=== PATIENT | male | born 1950 | race Caucasian/White ===

== ENCOUNTER 2019-09-12 10:20 | Outpatient (CLI) | payer MEDICARE, SELFPAY ==
--- NOTE | 2019-09-12 | XR_ITS ---
WS: [id number] LEFT RIBS, MULTIPLE VIEWS WITH PA CHEST HISTORY: COPD, pain. COMPARISON: None available. Lungs and mediastinum: Benign granuloma central RIGHT lung. Lungs are clear. No pulmonary contusion o r pneumothorax. Ribs: No acute rib fractures identified. There is very slight cortical thickening involving the LEFT ninth rib posteriorly which may be a healing fracture. XR/XR ribs LT mn 3V w CXR1V 40400 IMPRESSION: 1. No acute cardiopulmonary disease. 2. Possible healing rib fracture posterior LEFT ninth rib.
== END 2019-09-12 10:21 | disposition home or self-care (01) ==
LOC: RADOUTREAD 13:36
PROVIDERS: Family Provider Nurse Practitioner Family; PCP Nurse Practitioner Family; Visit Provider Nurse Practitioner Family
DX: J44.9 Chronic obstructive pulmonary disease, unspecified (principal); R07.81 Pleurodynia

== ENCOUNTER 2019-11-04 12:18 | Outpatient (CLI) | payer MEDICARE, SELFPAY ==
--- NOTE | 2019-11-04 | XR_ITS ---
WS: [id number] LEFT RIBS, MULTIPLE VIEWS WITH PA CHEST HISTORY: SHORTNESS OF BREATH COMPARISON: 09/12/2019 Lungs and mediastinum: Benign granuloma central RIGHT lung. New area of atelectasis at the LEFT lung base. There is a new small LEFT pleural effusion. No pneumothorax. Ribs: No rib fractures or bone destruction identified. XR/XR ribs LT mn 3V w CXR1V [id number] IMPRESSION: 1. New subsegmental LEFT basilar atelectasis with small effusion. Developing p neumonia not excluded. 2. No definite rib fractures are identified.
== END 2019-11-04 12:19 | disposition home or self-care (01) ==
LOC: RADOUTREAD 14:18
PROVIDERS: Family Provider Nurse Practitioner Family; PCP Nurse Practitioner Family; Visit Provider Nurse Practitioner Family
DX: Z01.89 Encounter for other specified special examinations (principal)

== ENCOUNTER 2019-11-04 13:13 | Observation (INO) | payer MEDICARE, SELFPAY ==
[2019-11-04] VITALS (9 sets, daily range): BP systolic 125–148; BP diastolic 72–97; PULSE 77–92; RESP 18–32; TEMP 36.6–37; O2SAT 87–96; BMI 29.6
--- NOTE | 2019-11-04 13:37 | XR_ITS ---
WS: [id number] XR chest 1V portable [id number] REASON FOR EXAM: SOB FINDINGS: Left pleural effusion is seen extends to the seventh interspace on the left. Comparisons we re made to September 12, 2019. A granuloma is again seen in the mid right chest. The hilum and apices normal. XR/XR chest 1V portable [id number] IMPRESSION: Left pleural effusion extends to the seventh interspace. Benign granuloma mid right chest.
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
--- NOTE | 2019-11-04 14:40 | CT_ITS ---
WS: [id number] CT scan of the chest with IV contrast, additional two-dimensional coronal and sagittal reconstruction was performed. 11/04/2019 Clinical Data: abnl cxr, Comparison: Portable chest, today, CTA chest, 11/09/2018. DLP: 878.[address] scans at [facility] use at least one of these dose optimization techniques: automat ed exposure control; mA and/or kV adjustment per patient size (includes targeted exams where dose is matched to clinical indication); or iterative reconstruction. Findings: There is a small left pleural effusion along with adjacent atelectasis. No nodules or masses are seen. The heart size is normal with no pericardial effusion. The pulmonary a rterial system and thoracic aorta demonstrate no abnormalities or dilatations. There is no axillary o r significant mediastinal adenopathy. No pneumonia or pneumothorax is seen. Pulmonary vascularity is not increased. The trachea bifurcates into the bronchi. The thyroid gland shows normal enhancement. The upper abdomen shows fatty infiltration the liver and clips in the gallbladder fossa from a cholec ystectomy, otherwise is not remarkable. Bony thorax shows minimal osteoarthritic changes of the thora cic vertebral bodies. CT/CT chest w con* [id number] Impression: 1. Small left pleural effusion. 2. Negative for other pulmonary abnormalities or cardiac abnormalities. 2.
[2019-11-04 14:42] LABS: Basophils # 0.2 10^3/uL (0.0-0.1); Basophils % 1.7 %; Eosinophils # 0.2 10^3/uL (0.0-0.8); Eosinophils % 1.7 %; Hematocrit 45.6 % (42.0-52.0); Hemoglobin 15.2 g/dL (11.7-16.6); Lymphocytes # 1.6 10^3/uL (0.8-4.8); Lymphocytes % 14.3 %; Mean Corpuscular HGB Conc 33.3 g/dL (30.0-36.0); Mean Corpuscular Hemoglobin 30.8 pg (28.0-34.0); Mean Corpuscular Volume 92.3 fL (80-94); Mean Platelet Volume 9.6 fL (7.4-10.4); Monocytes # 0.5 10^3/uL (0.2-0.9); Monocytes % 4.7 %; Neutrophils # 8.7 10^3/uL (1.8-7.7); Neutrophils % 77.1 %; Nucleated Red Blood Cells % 0 %; Platelet Count 308 10^3/cmm (130-400); Red Blood Count 4.94 10^6/uL (4.1-5.3); Red Cell Distribution Width 13.9 % (12.1-15.1); White Blood Count 11.3 10^3/uL (4.0-10.0)
[2019-11-04] MEDS: ondansetron 2 mg/ML SDV 2 mL 4 MG IVP (14:51)
[2019-11-04] MEDS: morphine 4 mg/mL SDV 1 mL IVP (14:51)
[2019-11-04] MEDS: ipratropium 0.5 mg/2.5 mL Neb 0.25 MG INHALATION (15:08)
[2019-11-04 15:14] LABS: Alanine Aminotransferase 28 U/L (0-41); Albumin Level 4.1 g/dL (3.5-5.2); Alkaline Phosphatase 129 IU/L (40-130); Aspartate Amino Transferase 27 U/L (0-40); Blood Urea Nitrogen 9 mg/dL (8-23); C Reactive Protein 26.9 mg/L (0.0-4.9); Calcium 9.9 mg/dL (8.5-10.5); Carbon Dioxide 25 mmol/L (22-29); Chloride 95 mmol/L (98-107); Globulin 3.4 g/dL (1.3-4.6); Glomerular Filtration Rate 84.2 mL/min (90-130); Glucose 374 mg/dL (65-115); NT Pro B Type Natriuretic Pept 50 pg/mL (0-125); Sodium 133 mmol/L (136-145); Total Bilirubin 0.6 mg/dL (0.15-1.2); Total Protein 7.5 g/dL (6.6-8.7)
[2019-11-04 15:25] LABS: Erythrocyte Sedimentation Rate 38 mm/hr (0-10)
[2019-11-04] MEDS: iohexol 300 mg/mL 100 mL Btl 95 ML IV (16:32)
--- NOTE | 2019-11-04 16:46 | ECG_ITS ---
Measurements Intervals [place] Rate: 75 P: 57 FL: 146 QRS: 3 QRSD: 105 T: 38 QT: 385 QTc: 432 SINUS RHYTHM Compared to ECG 11/10/2018 05:54:04 No significant changes Electronically Signed On 11-04-2019 19:56:19 POLICE CHIEF by Mag Alba M.D. [id number] f
[2019-11-04 17:59] LABS: D Dimer 7.85 ug/mIFEU (0-0.59)
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
[2019-11-04] MEDS: cyclobenzaprine 10 mg Tablet 5 MG PO (20:12)
[2019-11-04] MEDS: ipratropium-albuterol 3 mL Neb INHALATION (20:13)
[2019-11-04] MEDS: enoxaparin 40 mg/0.4 mL Syringe SUBCUT (20:14)
[2019-11-04] MEDS: lidocaine 5% Patch 1 PATCH TOPICAL (20:14)
--- NOTE | 2019-11-04 21:14 | CTR_ITS ---
PROCEDURE INFORMATION: Exam: CT Abdomen And Pelvis Without Contrast Exam date and time: 11/04/2019 10:23 PM Age: 68 years old Clinical indication: Abdominal pain; Prior surgery; Surgery type: Back, hernia, gb; Additional info: Left upper qudrant pain TECHNIQUE: Imaging protocol: Computed tomography of the abdomen and pelvis without contrast. Total DLP: 1581.51 mGy-cm Radiation optimization: All CT scans at this facility use at least one of these dose optimization techniques: automated exposure control; mA and/or kV adjustment per patient size (includes targeted exams where dose is matched to clinical indication); or iterative reconstruction. COMPARISON: US ROR abd aorta aneury scrn 03/14/2019 8:32 AM FINDINGS: Pleural space: Small left pleural effusion. No visible evidence of hemothorax or pneumothorax within the field of view provided. Liver: Diffuse fatty infiltration of the liver. Gallbladder and bile ducts: Status post cholecystectomy. No intra or extrahepatic biliary ectasia. Pancreas: Pancreas unremarkable. Spleen: Calcified splenic granulomas. Adrenals: Adrenal glands unremarkable. Kidneys and ureters: Kidneys unremarkable. No hydronephrosis or perinephric fluid. Stomach and bowel: Unremarkable. No obstruction. No mucosal thickening. Appendix: No evidence of appendicitis. Intraperitoneal space: Unremarkable. No free air. No significant fluid collection. Vasculature: IVC filter. Lymph nodes: Unremarkable. No enlarged lymph nodes. Bladder: Unremarkable as visualized. Reproductive: Unremarkable as visualized. Bones/joints: Minimally displaced lateral left 7th rib fracture. This is only partially imaged. Degenerative disease and degenerative disc disease of the visualized spine. Inter pedicle screw fixation at L4 and L5 with intervertebral disc prosthesis. Spondylosis deformans. Advanced degenerative disc disease with disc space height loss L1/L2. Soft tissues: Small right inguinal hernia containing fat only. CT/CT abdomen pelvis wo con 04502 IMPRESSION: 1. Minimally displaced lateral left 7th rib fracture. 2. Small left pleural effusion. 3. No visible evidence of hemothorax or pneumothorax within the field of view provided. 4. Small right inguinal hernia containing fat only. 5. Diffuse fatty infiltration of the liver. 6. Currently no visible evidence of acute abdominal or pelvic pathologic process. Radiation Dose CTDIVOL = (mGy): DLP = 1581.51 (mGy-cm)
--- NOTE | 2019-11-04 21:18 | ECG_ITS ---
Measurements Intervals [place] Rate: 80 P: 57 [place]: 154 QRS: -26 QRSD: 100 T: 41 QT: 375 QTc: 433 SINUS RHYTHM BORDERLINE LEFT AXIS DEVIATION [QRS AXIS < -20] Compared to ECG 11/04/2019 16:58:17 No significant changes Electronically Signed On 11-05-2019 11:35:34 TRANSITION ADVISOR by Huang Caicedo M.D. [id number]
[2019-11-04 22:01] LABS: Lipase 19 U/L (13-60)
[2019-11-04 22:17] LABS: Troponin(5th) Baseline 13 ng/mL (0-15)
[2019-11-05] VITALS (15 sets, daily range): BP systolic 106–159; BP diastolic 64–83; PULSE 56–89; RESP 18–22; TEMP 36.3–36.5; O2SAT 86–97
[2019-11-05 00:29] LABS: Troponin 5 2HR 13.25 ng/mL (0-15); Troponin 5 2HR Delta 0.25 ABS# (0-10)
[2019-11-05 03:56] LABS: Basophils # 0.1 10^3/uL (0.0-0.1); Basophils % 2.1 %; Eosinophils % 0.2 %; Hematocrit 44.3 % (42.0-52.0); Hemoglobin 14.4 g/dL (11.7-16.6); Lymphocytes # 1.1 10^3/uL (0.8-4.8); Lymphocytes % 18.5 %; Mean Corpuscular HGB Conc 32.5 g/dL (30.0-36.0); Mean Corpuscular Hemoglobin 30.6 pg (28.0-34.0); Mean Corpuscular Volume 94.3 fL (80-94); Mean Platelet Volume 10.9 fL (7.4-10.4); Monocytes # 0.1 10^3/uL (0.2-0.9); Monocytes % 2.1 %; Neutrophils # 4.4 10^3/uL (1.8-7.7); Neutrophils % 76.8 %; Nucleated Red Blood Cells % 0 %; Platelet Count 248 10^3/cmm (130-400); Red Cell Distribution Width 13.9 % (12.1-15.1); White Blood Count 5.8 10^3/uL (4.0-10.0)
[2019-11-05 04:09] LABS: Troponin 5 6HR 13.19 ng/mL (0-15); Troponin 5 6HR Delta 0.19 ng/L (0-12)
[2019-11-05 04:24] LABS: Alanine Aminotransferase 28 U/L (0-41); Albumin Level 3.5 g/dL (3.5-5.2); Alkaline Phosphatase 115 IU/L (40-130); Anion Gap 18.7 (5-19); Blood Urea Nitrogen 13 mg/dL (8-23); Calcium 9.8 mg/dL (8.5-10.5); Carbon Dioxide 20 mmol/L (22-29); Chloride 96 mmol/L (98-107); Globulin 3.9 g/dL (1.3-4.6); Glomerular Filtration Rate 74.5 mL/min (90-130); Potassium 5.7 mmol/L (3.5-5.1); Sodium 129 mmol/L (136-145); Total Bilirubin 0.5 mg/dL (0.15-1.2); Total Protein 7.4 g/dL (6.6-8.7)
[2019-11-05 04:28] LABS: Slide Review Slide Review Perform
[2019-11-05 04:29] LABS: Glucose 579 mg/dL (65-115)
[2019-11-05 04:30] LABS: Aspartate Amino Transferase 29 U/L (0-40)
[2019-11-05 04:42] LABS: Glucose Point of Care 478 mg/dL (70-110)
[2019-11-05 06:14] LABS: Glucose Point of Care 412 mg/dL (70-110)
[2019-11-05 06:47] LABS: Estmated Average Glucose 260; Hemoglobin A1C 10.7 % (4.0-6.0)
[2019-11-05] MEDS: ipratropium-albuterol 3 mL Neb INHALATION ×3 (07:32→14:48)
[2019-11-05] MEDS: budesonide 0.5 mg/2 mL Neb INHALATION (08:25)
[2019-11-05] MEDS: lisinopril 20 mg Tablet 40 MG PO (10:00)
[2019-11-05] MEDS: aspirin 81 mg EC Tablet PO (10:01)
[2019-11-05] MEDS: pantoprazole DR 40 mg Tablet PO (10:01)
[2019-11-05] MEDS: gemfibrozil 600 mg Tablet PO (10:01)
[2019-11-05 10:58] LABS: Glucose Point of Care 389 mg/dL (70-110)
[2019-11-05] MEDS: ibuprofen 200 mg Tablet 400 MG PO (12:12)
--- NOTE | 2019-11-05 12:38 | P.DS_ITS ---
Discharge Providers Date of Admission: 11/04/19 17:34 Date of Discharge: November 05, 2019 Attending Provider at Admission: Sandra Arellano MD Attending Provider at Discharge: Sandra Arellano MD Primary Care Provider: Gabriela Szymanski Diagnoses at Discharge Discharge Diagnosis (1) Left-sided chest pain: Status: Acute (2) COPD (chronic obstructive pulmonary disease): Status: Acute Qualifiers: COPD type: COPD with acute exacerbation Qualified Code(s): J44.1 - Chronic obstructive pulmonary disease with (acute) exacerbation (3) Rib fracture: Status: Acute (4) Diabetes mellitus: Status: Acute Reason for Visit Reason for Visit: Reason For Visit: left sided fliud in lungs Hospital Course Discharge Summary: Stew Gardner is a 68 year old male with past medical history of COPD, CAD, hypertension, dyslipidemia who presented with complaint of left-sided chest discomfort and new hypoxia with SPO2 in the high 80s, new oxygen requirement of 2 L/min via nasal cannula. Upon initial evaluation with chest x-ray and CTA of the chest, he was ruled out for PE. Though no rib fractures were initially identified on x-ray and CTA of the chest, a CT of the abdomen was performed to rule out referred pain from the left upper quadrant and this did indeed reveal a minimally displaced seventh rib fracture on the left side, which coincided with the area of chest wall tenderness for the patient. No visible evidence of hemothorax or pneumothorax was seen. no obviosu abdominal source of pain. Note was made of a small left pleural effusion, however the latter finding does not explain his degree of symptoms., Pain control was given with oxycodone, ibuprofen and lidocaine patch and patient is significantly relieved of his pain as of the morning of discharge. He is able to converse in full sentences. Home oxygen evaluation was also done. Incentive spirometry was encouraged. Other significant hospital findings included blood sugar levels in excess of 500 requiring insulin and HbA1c of 10.5. Upon review of prior A1c, he had an HbA1c of 7.5 last year. On asking him about his history of diabetes mellitus, the patient and his family at bedside adamantly refused having the diagnosis of diabetes mellitus. They state that he has abnormal blood sugar and abnormal HbA1c only during hospital admissions and they believe this is contributed by Lovenox. I attempted to explain to them that while today blood sugar may be affected by steroids and other medications, HbA1c is a pretty accurate assessment tool for diagnosing diabetes mellitus over a period of ~3months or so. An A1c of 10.5 is consistent with diabetes mellitus and patient will probably need insulin for control. However both patient and family continue to deny the diagnosis of diabetes, states this is an ongoing issue being addressed as an outpatient and declined any further treatment from [facility] for the diabetes. They state they would like to continue following with their primary care provider for the same. Patient should also have an evaluation for osteoporosis given recurrent rib fractures with minimal stress of coughing and osteoporosis noted in the vertebral bodies on CT of the chest. Will additionally need follow up of left pleural effusion. 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: no focal neuro deficits Discharge Data Data Completed and Pending: Completed Studies During Hospitalization Category Date Time Status CT abdomen pelvis wo con [id number] Rout ine Cat Scan 11/04/19 21:[address] chest w con* [id number] Urgent Cat Scan 11/04/19 14:40 Completed XR chest 1V branden ble [id number] Urgent Exams 11/04/19 13:37 Completed Pending at discharge Category Date Time Status Blood Culture Sta t Lab 11/04/19 14:40 Results Potassium Stat Lab 11/05/19 12:24 Ordered Labs from last 24 hours 11/05/19 11/05/19 11/05/19 10:55 06:09 04:38 WBC RBC Hgb Hct MCV MCH MCHC RDW Plt Count MPV Neut % (Auto) Lymph % (Auto) [place] % (Auto) Eos % (Auto) Baso % (Auto) Neut # (Auto) Lymph # (Auto) [place] # (Auto) Eos # (Auto) Baso # (Auto) Nucleated RBC % (a uto) Nucleated RBCs # ESR D-Dimer Sodium Potassium Chloride Carbon Dioxide Anion Gap BUN Creatinine GFR Calculation Glucose POC Glucose [phone] Estimat Average Gl ucose Hemoglobin A1c Calcium Total Bilirubin AST ALT Alkaline Phosphata se Troponin I 6 Hour Troponin I Hi Sens Del Troponin T Baselin e Troponin T 120 Min [place] Troponin T C-Reactive Protein NT-Pro-B Natriuret Pep Total Protein Albumin Globulin Lipase 11/05/19 11/05/19 11/05/19 03:30 03:30 03:30 WBC RBC Hgb Hct MCV MCH MCHC RDW Plt Count MPV Neut % (Auto) Lymph % (Auto) [place] % (Auto) Eos % (Auto) Baso % (Auto) Neut # (Auto) Lymph # (Auto) [place] # (Auto) Eos # (Auto) Baso # (Auto) Nucleated RBC % (a uto) Nucleated RBCs # ESR D-Dimer Sodium 129 L Potassium 5.7 H Chloride 96 L Carbon Dioxide 20 L Anion Gap 18.7 BUN 13 Creatinine 1.0 GFR Calculation 74.5 L Glucose 579 H* POC Glucose Estimat Average Gl ucose 260 Hemoglobin A1c 10.7 H Calcium 9.8 Total Bilirubin 0.5 AST 29 ALT 28 Alkaline Phosphata se 115 Troponin I 6 Hour 13.19 Troponin I Hi Sens Del 0.19 Troponin T Baselin e Troponin T 120 Min [place] Troponin T C-Reactive Protein NT-Pro-B Natriuret Pep Total Protein 7.4 Albumin 3.5 Globulin 3.9 Lipase 11/05/19 11/04/19 11/04/19 03:30 23:40 21:35 WBC 5.8 RBC 4.70 Hgb 14.4 Hct 44.3 MCV 94.3 H MCH 30.6 MCHC 32.5 RDW 13.9 Plt Count 248 MPV 10.9 H Neut % (Auto) 76.8 Lymph % (Auto) 18.5 [place] % (Auto) 2.1 Eos % (Auto) 0.2 Baso % (Auto) 2.1 Neut # (Auto) 4.4 Lymph # (Auto) 1.1 [place] # (Auto) 0.1 L Eos # (Auto) 0.0 Baso # (Auto) 0.1 Nucleated RBC % (a uto) 0 Nucleated RBCs # 0.0 ESR D-Dimer Sodium Potassium Chloride Carbon Dioxide Anion Gap BUN Creatinine GFR Calculation Glucose POC Glucose Estimat Average Gl ucose Hemoglobin A1c Calcium Total Bilirubin AST ALT Alkaline Phosphata se Troponin I 6 Hour Troponin I Hi Sens Del Troponin T Baselin e 13 Troponin T 120 Min [place] 13.25 Delta Troponin T 0.25 C-Reactive Protein NT-Pro-B Natriuret Pep Total Protein Albumin Globulin Lipase 11/04/19 11/04/19 11/04/19 21:35 14:19 14:19 WBC RBC Hgb Hct MCV MCH MCHC RDW Plt Count MPV Neut % (Auto) Lymph % (Auto) [place] % (Auto) Eos % (Auto) Baso % (Auto) Neut # (Auto) Lymph # (Auto) [place] # (Auto) Eos # (Auto) Baso # (Auto) Nucleated RBC % (a uto) Nucleated RBCs # ESR 38 H D-Dimer 7.85 H Sodium Potassium Chloride Carbon Dioxide Anion Gap BUN Creatinine GFR Calculation Glucose POC Glucose Estimat Average Gl ucose Hemoglobin A1c Calcium Total Bilirubin AST ALT Alkaline Phosphata se Troponin I 6 Hour Troponin I Hi Sens Del Troponin T Baselin e Troponin T 120 Min [place] Troponin T C-Reactive Protein NT-Pro-B Natriuret Pep Total Protein Albumin Globulin Lipase 11/04/19 11/04/19 14:19 14:19 WBC 11.3 H RBC 4.94 Hgb 15.2 Hct 45.6 MCV 92.3 MCH 30.8 MCHC 33.3 RDW 13.9 Plt Count 308 MPV 9.6 Neut % (Auto) 77.1 Lymph % (Auto) 14.3 [place] % (Auto) 4.7 Eos % (Auto) 1.7 Baso % (Auto) 1.7 Neut # (Auto) 8.7 H Lymph # (Auto) 1.6 [place] # (Auto) 0.5 Eos # (Auto) 0.2 Baso # (Auto) 0.2 H Nucleated RBC % (a uto) 0 Nucleated RBCs # 0.0 ESR D-Dimer Sodium 133 L Potassium 4.0 Chloride 95 L Carbon Dioxide 25 Anion Gap 17.0 BUN 9 Creatinine 0.9 GFR Calculation 84.2 L Glucose 374 H POC Glucose Estimat Average Gl ucose Hemoglobin A1c Calcium 9.9 Total Bilirubin 0.6 AST 27 ALT 28 Alkaline Phosphata se 129 Troponin I 6 Hour Troponin I Hi Sens Del Troponin T Baselin e Troponin T 120 Min [place] Troponin T C-Reactive Protein 26.9 H NT-Pro-B Natriuret Pep 50 Total Protein 7.5 Albumin 4.1 Globulin 3.4 Lipase Vitals: Last Vital Signs Temp 97.4 F L 11/05/19 10:59 Pulse 72 11/05/19 11:25 Resp 18 11/05/19 11:21 BP 130/69 11/05/19 10:59 Pulse Ox 91 11/05/19 11:21 Discharge Plan Discharge Patient Disposition: Home, Self-Care Condition: Stable Prescriptions: New hydromorphone 4 mg Tablet 2 mg PO Q6H PRN (Reason: Severe Pain) 7 Days Qty: 28 RF: 0 lidocaine 4 % adhesive patch,medicated 1 patch TOPICAL DAILY PRN (Reason: pain) Qty: 14 RF: 0 ibuprofen 200 mg Tablet 400 mg PO Q12H PRN (Reason: Mild/Mod Pain Or Temp >/= 101) Qty: 0 RF: 0 Continued Multiple Vitamins Tablet 1 tab PO DAILY RF: 0 albuterol sulfate 2.5 mg /3 mL (0.083 %) solution for nebulization See Rx Instructions .ROUTE .COMPLEX RF: 0 omeprazole 40 mg capsule,delayed release(DR/EC) 40 mg PO DAILY RF: 0 aspirin 81 mg Tablet,Delayed Release (Dr/Ec) 81 mg PO DAILY RF: 0 gemfibrozil 600 mg tablet 600 mg PO DAILY RF: 0 Ventolin HFA 90 mcg/actuation HFA aerosol inhaler 2 puff INHALATION PRN PRN (Reason: Shortness Of Breath) RF: 0 lisinopril 40 mg tablet 40 mg PO DAILY RF: 0 ipratropium bromide 0.02 % solution See Rx Instructions .ROUTE .COMPLEX RF: 0 Symbicort 160-4.5 mcg/actuation HFA aerosol inhaler 2 puff INHALATION PRN PRN (Reason: Shortness Of Breath) RF: 0 Discharge Orders: Discharge Order (Routine); Ordered 11/05/19 Ordered By: Sandra Arellano Other Ambulatory Orders: DME: Miscellaneous (Order) Location: None Selected Ordered By: Sandra Arellano Referrals: Gabriela Szymanski [Primary Care Provider] - 4-7 days Bryan Mcclendon FNP [Family Provider] - 4-7 days Discharge Diet: Usual diet and Diabetic Discharge Activity: Resume usual activity Discharge Attestations Time Spent in Discharge Care*: greater than 30 min Quality Metrics Clinical Quality Measures During this hospital stay, did patient experience: None Coding Level of Care Code 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
[2019-11-05 14:27] LABS: Potassium 4.3 mmol/L (3.5-5.1)
== END 2019-11-05 16:00 | disposition home or self-care (01) ==
LOC: ER 19:03 → MEDSURG 19:26
PROVIDERS: Internal Medicine; Admitting Provider Student in an Organized Health Care Education/Training Program; Emergency Provider Emergency Medicine; Family Provider Nurse Practitioner Family; PCP Nurse Practitioner Family; Visit Provider Student in an Organized Health Care Education/Training Program
DX: R07.9 Chest pain, unspecified (principal); J44.1 Chronic obstructive pulmonary disease with (acute) exacerbation; I25.10 Atherosclerotic heart disease of native coronary artery without angina pectoris; I10 Essential (primary) hypertension; E78.5 Hyperlipidemia, unspecified; Z79.82 Long term (current) use of aspirin; Z86.718 Personal history of other venous thrombosis and embolism; Z98.1 Arthrodesis status; Z87.891 Personal history of nicotine dependence; S22.39XA Fracture of one rib, unspecified side, initial encounter for closed fracture; E11.9 Type 2 diabetes mellitus without complications
CPT/HCPCS: 12345; 36415; 36416; 71045; 71260; 74176; 80053; 82962; 83036; 83690; 83880; 84132; 84484; 85025; 85378; 85651; 86140; 87040; 93005; 94640; 94664; 96372; 96374; 96375; 99283; 99285; G0378; J1650; J1815; J2270; J2405; J2930; J7611; J7626; J7644; Q9967

== ENCOUNTER 2020-02-16 06:57 | Outpatient (CLI) | payer MEDICARE, SELFPAY ==
--- NOTE | 2020-02-16 08:15 | XR_ITS ---
WS: [id number] XR chest 2V* [id number] REASON FOR EXAM: left pleural effusion FINDINGS: Comparisons were made to November 04, 2019 the pleural effusion on the left side has completely cleared. There is noted on the left side measures of the 6/7 ribs with angulation of the fracture pa rts. The remaining lung bailey are clear a nodule is seen in the mid lateral right chest suggesting a granuloma. XR/XR chest 2V* [id number] IMPRESSION: Resolved left pleural effusion Rib fractures 6 and 7 on the left side.
--- NOTE | 2020-02-16 10:18 | PFTS_ITS ---
Date of Study:02/16/20 Date of Dictation: MECHANICS: Forced vital capacity (FVC) is normal. Forced expiratory volume in one second (FEV1) is reduced. FEV1/FVC is reduced. FLOW VOLUME LOOP: Reduced flow at all lung volumes with significant scooping. LUNG VOLUMES: Total lung capacity (TLC) is normal. Residual volume (RV) is increased. DIFFUSING CAPACITY FOR CARBON MONOXIDE: Mildly reduced. INTERPRETATION: The pulmonary function tests are consistent with moderate obstruction. There is no significant postbronchodilator response. Lung volumes are consistent with air trapping. Gas exchange (DLCO) is mildly reduced. MTDD
== END 2020-02-16 06:58 | disposition home or self-care (01) ==
PROVIDERS: PCP Nurse Practitioner Family; Visit Provider Internal Medicine Critical Care Medicine
DX: J90 Pleural effusion, not elsewhere classified (principal); J44.1 Chronic obstructive pulmonary disease with (acute) exacerbation; S22.42XA Multiple fractures of ribs, left side, initial encounter for closed fracture; X58.XXXA Exposure to other specified factors, initial encounter
CPT/HCPCS: 71046; 94060; 94726; 94729; J7611

== ENCOUNTER 2020-03-10 16:02 | Outpatient (CLI) | payer MEDICARE, SELFPAY ==
--- NOTE | 2020-03-10 | XR_ITS ---
WS: [id number] SCREENING DEXA SCAN [facility] CLINICAL INFORMATION: OSTEOPOROSIS COMPARISON: None. FINDINGS: Left forearm bone mineral density measures 1.12 with a T score of 1.3 and Z score of 2.0 Left femoral neck bone mineral density measures 1.270 g/cm2. This corresponds to a T score of 1.2 and Z score of 1.7. Right femoral neck bone mineral density measures 1.234 g/cm2. This corresponds to a T score 0.9of and Z score of 1.5. Mean femoral neck bone mineral density measures 1.252 g/cm2. This corresponds to a T score of 1.0 and Z score of 1.6. XR/XR DEXA axial skeleton* [id number] IMPRESSION: Normal bone mineralization. Patient's FRAX calculated 10 year probability for major osteoporotic fracture i s 3.9 % and osteoporotic hip fracture is 0.4%.
== END 2020-03-10 16:03 | disposition home or self-care (01) ==
LOC: RADWPI 16:11
PROVIDERS: Family Provider Nurse Practitioner Family; PCP Nurse Practitioner Family; Visit Provider Nurse Practitioner Family
DX: M81.0 Age-related osteoporosis without current pathological fracture (principal)
CPT/HCPCS: 77080

== ENCOUNTER 2020-12-02 17:06 | Outpatient (CLI) | payer MEDICARE, SELFPAY ==
--- NOTE | 2020-12-02 17:15 | MR_ITS ---
WS: [id number] MRI LUMBAR SPINE NONCONTRAST TECHNIQUE: Sagittal T1, T2 and STIR imaging. Axial T1 and T2 imaging. CLINICAL INFORMATION: LEFT HIP PAIN COMPARISON: None. FINDINGS: Counting performed from the craniocervical junction. L5 is sacralized. Pedicle screw fixation L4-5 wi th interbody fusion graft. Laminectomy defects. L1-L2: Slight retrolisthesis. Mild disc bulging with osteophytic ridging and mild central canal steno sis. Shallow central protrusion. Mild facet arthropathy. Mild bilateral foraminal narrowing. L2-L3: Mild disc bulging with a left pericentral disc protrusion extending into the left subarticular recess. This impinges the traversing left L3 nerve root. Moderate central canal stenosis. Moderate f acet arthropathy. Moderate left and mild right foraminal narrowing. L3-L4: Mild annular bulging with slight effacement of ventral thecal sac. Narrowing of the subarticul ar recess bilaterally. Mild right greater than left foraminal narrowing. Moderate facet arthropathy. L4-L5: Postoperative changes pedicle screw fixation with interbody fusion. Mild left and no significa nt right foraminal narrowing. Laminectomy defects. Spinal canal is patent. Moderate facet arthropathy . L5-S1: L5 is sacralized. Mild facet arthropathy. Spinal canal and foramen are patent. Mild central canal stenosis senior it specialist imaging cervical spine at C4-C6. MR/MR lumbar spine wo con* [id number] IMPRESSION: 1. Counting performed from the craniocervical junction. L5 is sacralized. 2. Pedicle screw fixation L4-5 with interbody fusion. 3. Mild central canal stenosis L1-2 and moderate central canal stenosis L2-3. 4. Left pericentral disc protrusion L2-3 with slight caudal migration of disc material. This fills the left subarticular recess and impinges the traversing l eft L3 nerve root. 5. Mild central canal stenosis L3-4 with narrowing of the subarticular recess. 6. Otherwise mild to moderate foraminal narrowing as described above. 7. Mild central canal stenosis in the cervical spine on senior it specialist imaging at C4-C6 .
== END 2020-12-02 17:07 | disposition home or self-care (01) ==
LOC: RADSHAW 17:13
PROVIDERS: PCP Nurse Practitioner Family; Visit Provider Nurse Practitioner Family
DX: M25.552 Pain in left hip (principal); M48.061 Spinal stenosis, lumbar region without neurogenic claudication; M51.26 Other intervertebral disc displacement, lumbar region
CPT/HCPCS: 72148

== ENCOUNTER 2021-03-14 09:01 | Outpatient (CLI) | payer MEDICARE, SELFPAY ==
--- NOTE | 2021-03-14 09:06 | CT_ITS ---
WS: [id number] LDCT LUNG CANCER SCREENING DLP: 55.3 CLINICAL INFORMATION: COMPARISON: None available. TECHNIQUE: Transaxial computed tomography images of the chest non-contrast with sagital and coronal r econstructions. All CT scans at [facility] use at least one of these dose optimization techniques: automat ed exposure control; mA and/or kV adjustment per patient size (includes targeted exams where dose is matched to clinical indication); or iterative reconstruction. FINDINGS: Mild chronic emphysematous changes. No acute pulmonary infiltrates. A few calcified granulo mas. Aortic calcification. Coronary calcification. Normal GE junction. Adrenal glands are normal. No axill osito lymphadenopathy. Normal thoracic spine. Previously described left pleural effusion has resolved. Small amount of fibrosis left lower lobe laterally. CT/CT lung screening [id number] IMPRESSION: LUNG-RADS: 1-Negative FOLLOW UP: 12 Month: Continue annual screening with LDCT
== END 2021-03-14 09:02 | disposition home or self-care (01) ==
LOC: RAD 09:03
PROVIDERS: PCP Nurse Practitioner Family; Visit Provider Internal Medicine Critical Care Medicine
DX: Z12.2 Encounter for screening for malignant neoplasm of respiratory organs (principal); F17.200 Nicotine dependence, unspecified, uncomplicated
CPT/HCPCS: 71271

== ENCOUNTER 2021-08-28 22:14 | Emergency (ER) | payer MEDICARE, SELFPAY ==
[2021-08-28 22:18] VITALS: BP 143/70; PULSE 83; RESP 23; TEMP 36.7; O2SAT 95; BMI 24.7
--- NOTE | 2021-08-28 22:22 | ED_ITS ---
HPI - Chest Pain General: Chief Complaint: Chest Pain Stated Complaint: CP Time Seen by Provider: 08/28/21 22:22 History of Present Illness: HPI narrative: Mr. Gardner is a 70-year-old gentleman with significant past medical history of hypertension, hyperlipidemia, diabetes, COPD with chronic hypoxic respiratory failure intermittently on oxygen at baseline and history of tobaccoism who presents to the emergency department due to chest pain and presyncope. History is somewhat limited from the actual patient, he does endorse drinking and smoking a cigar and then had some left anterior chest pain with mild collapse to the ground. This lasted a short period of time and then he was able to ambulate. Per triage note patient endorsed drinking approximately half gallon of alcohol. Patient currently denies any chest pain. Denies recent changes in health or any infectious symptoms. He does have an obvious deformity/flail appearing segment to the left lower rib cage however he says that this is present before and has been there for a long time secondary to rib fracture, he cannot recall exactly when. Overall intensity of symptoms was unclear, the course is now improved, no other specific changes to health, exacerbating, relieving factors identified. Review of Systems General: Reports: 10 or more systems reviewed and unremarkable except in HPI and below PFSH ED PFSH: Medical History (Updated 08/28/21 @ 23:50 by Phillip Acharya MD) COPD (chronic obstructive pulmonary disease) DVT (deep venous thrombosis) Hyperlipidemia Hypertension Surgical History H/O spinal fusion History of cholecystectomy Family History Father CAD (coronary artery disease) Mother CAD (coronary artery disease) Diabetes Parkinsons disease Other Autoimmune disease Social History Second hand smoke exposure: Yes Smoking risk assessment/counseling performed?: Yes Alcohol intake: never Counseling given: No Counseling given: No Lives independently: Yes Household members: spouse Marital status: 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 Eyes - PERRL, no conjunctival injection ENMT - Atraumatic external nose and ears. Dry mucous membranes NECK - supple. trachea midline CARDIOVASCULAR - regular rate and rhythm. Peripheral pulses 2+ and equal RESPIRATORY -diminished to auscultation bilaterally. Tachypnea CHEST WALL - left lower rib deformity with concern over flail segment, patient reports may be chronic however reliability of history is limited given mental status. ABDOMEN/GI - Nontender/Nondistended. No tenderness to percussion or evidence of peritonitis MSK - Extremities without obvious deformity or tenderness to palpation SKIN - Warm, Dry NEURO - alert but disoriented. No focal neurologic deficits. Moves all extremities equally. PSYCH -impaired cognition and memory Course ED course: - Patient was seen and evaluated by me at bedside - Patient placed on cardiac monitors, IV access obtained - Initial evaluation notable for exam as above - Labs notable for no significant hematologic abnormality. Metabolic panel with mild hypokalemia, replenishment ordered. Delta troponin is negative. D-dimer elevated. - Given mental status change as well as visible rib abnormality without clear chronology CT imaging warranted. Imaging notable for negative head and neck CT for traumatic injury. No acute evidence of pulmonary embolism or traumatic injury on CTA and CT abdomen and pelvis. - Upon serial reexamination after treatment the patient was markedly improved - Based on patient history, evaluation, labs, and imaging as interpreted the most likely cause of the patient's condition is fall with altered mental status possibly related to alcohol use. - The results of ED evaluation were discussed with the patient including prescriptions and/or symptomatic cares (if applicable) including appropriate and responsible use, followup plan, and return precautions. The patient verbalized understanding and felt safe for discharge. - Patient discharged in satisfactory condition. Vital Signs: Vital signs: Vital Signs Temperature 98.0 F 08/28/21 22:18 Pulse Rate 74 08/29/21 01:34 Respiratory Rate 27 H 08/29/21 01:34 Blood Pressure 168/83 08/29/21 02:15 Pulse Oximetry 94 08/29/21 01:34 MDM - Chest Pain Medical Records: Attestation: I reviewed the patient's medical records. Lab Data: Attestation: I reviewed the patient's lab results. Labs: Lab Results 08/28/21 08/28/21 08/28/21 22:00 22:00 22:00 WBC 8.9 10^3/uL 10^3/ uL (4.0-10.0) RBC 5.29 10^6/uL 10^6 /uL (4.1-5.3) Hgb 15.6 g/dL g/dL (11.7-16.6) Hct 48.3 % % (42.0-52.0) MCV 91.3 fl fl (80-94) MCH 29.5 pg pg (28.0-34.0) MCHC 32.3 g/dL g/dL (30.0-36.0) RDW 14.1 % % (12.1-15.1) Plt Count 297 10^3/cmm 10^3 /cmm (130-400) MPV 8.9 fL fL (7.4-10.4) Neut % (Auto) 61.1 % % Lymph % (Auto) 28.3 % % Mcleod % (Auto) 6.3 % % Eos % (Auto) 2.0 % % Baso % (Auto) 2.0 % % Neut # (Auto) 5.45 10^3/uL 10^3 /uL (1.8-7.7) Lymph # (Auto) 2.5 10^3/uL 10^3/ uL (0.8-4.8) Mcleod # (Auto) 0.6 10^3/uL 10^3/ uL (0.2-0.9) Eos # (Auto) 0.2 10^3/uL 10^3/ uL (0.0-0.8) Baso # (Auto) 0.2 10^3/uL H 10^ 3/uL (0.0-0.1) Nucleated RBC % (a uto) 0 % % Nucleated RBCs # 0.0 /100WBC /100W BC D-Dimer 12.06 ug/mIFEU H ug/mIFEU (0-0.59) Sodium 144 mmol/L mmol/L (136-145) Potassium 3.2 mmol/L L mmol /L (3.5-5.1) Chloride 102 mmol/L mmol/L (98-107) Carbon Dioxide 27 mmol/L mmol/L (22-29) Anion Gap 18.2 (5-19) BUN 8 mg/dL mg/dL (8-23) Creatinine 0.9 mg/dL mg/dL (0.7-1.2) GFR Calculation 83.7 mL/min L mL/ min (90-130) Glucose 134 mg/dL H mg/dL (65-115) Calculated Osmolal ity 298 mOsm/kg H mOs m/kg (285-295) Calcium 9.2 mg/dL mg/dL (8.5-10.5) Total Bilirubin 0.3 mg/dL mg/dL (0.15-1.2) AST 21 U/L U/L (0-40) ALT 25 U/L U/L (0-41) Alkaline Phosphata se 108 IU/L IU/L (40-130) Troponin T Baselin e Troponin T 120 Min efra Delta Troponin T NT-Pro-B Natriuret Pep 335 pg/mL H pg/mL (0-125) Total Protein 6.5 g/dL L g/dL (6.6-8.7) Albumin 3.8 g/dL g/dL (3.5-5.2) Globulin 2.7 g/dL g/dL (1.3-4.6) Lipase 103 U/L H U/L (13-60) 08/28/21 08/29/21 22:00 00:05 WBC RBC Hgb Hct MCV MCH MCHC RDW Plt Count MPV Neut % (Auto) Lymph % (Auto) Mcleod % (Auto) Eos % (Auto) Baso % (Auto) Neut # (Auto) Lymph # (Auto) Mcleod # (Auto) Eos # (Auto) Baso # (Auto) Nucleated RBC % (a uto) Nucleated RBCs # D-Dimer Sodium Potassium Chloride Carbon Dioxide Anion Gap BUN Creatinine GFR Calculation Glucose Calculated Osmolal ity Calcium Total Bilirubin AST ALT Alkaline Phosphata se Troponin T Baselin e 96 ng/L H ng/L (0-15) Troponin T 120 Min efra 102.2 ng/L H ng/L (0-15) Delta Troponin T 6.2 ABS# ABS# (0-10) NT-Pro-B Natriuret Pep Total Protein Albumin Globulin Lipase EKG Data^: EKG 1: Attestation: I personally reviewed and interpreted this EKG as follows: EKG interpretation date: 08/28/21 EKG interpretation time: 22:30 Interpretation: Twelve-lead EKG shows a regular rhythm at a rate of 78. ID interval 155, QRS duration 104, QTc 436. Borderline axis. Interpretation: Sinus rhythm. Discharge Plan Discharge Patient Disposition: Home Clinical Impression: Near syncope, Chest pain Condition: Stable Prescriptions: No Action fluticasone propionate [Children's Flonase Allergy Rlf] 50 mcg/actuation spray,suspension 1 spray INTRANASAL BID 30 Days Qty: 16 RF: 4 fluticasone propionate [Flonase Allergy Relief] 50 mcg/actuation spray,suspension 1 spray intranasal Q12H 30 Days Qty: 16 RF: 4 ascorbic acid (vitamin C) 500 mg capsule, extended release 500 mg PO DAILY RF: 0 budesonide [Pulmicort] 0.5 mg/2 mL suspension for nebulization 0.5 mg INHALATION BID 30 Days Qty: 120 RF: 4 ipratropium-albuterol 0.5 mg-3 mg(2.5 mg base)/3 mL solution for nebulization See Rx Instructions .ROUTE .COMPLEX Qty: 360 RF: 3 Multiple Vitamins Tablet 1 tab PO DAILY RF: 0 albuterol sulfate 2.5 mg /3 mL (0.083 %) solution for nebulization See Rx Instructions .ROUTE .COMPLEX RF: 0 omeprazole 40 mg capsule,delayed release(DR/EC) 40 mg PO DAILY RF: 0 aspirin 81 mg Tablet,Delayed Release (Dr/Ec) 81 mg PO DAILY RF: 0 gemfibrozil 600 mg tablet 600 mg PO DAILY RF: 0 Ventolin HFA 90 mcg/actuation HFA aerosol inhaler 2 puff INHALATION PRN PRN (Reason: Shortness Of Breath) RF: 0 lisinopril 40 mg tablet 40 mg PO DAILY RF: 0 ibuprofen 200 mg Tablet 400 mg PO Q12H PRN (Reason: Mild/Mod Pain Or Temp >/= 101) Qty: 0 RF: 0 lidocaine 4 % adhesive patch,medicated 1 patch TOPICAL DAILY PRN (Reason: pain) Qty: 14 RF: 0 dextromethorphan HBr 10 mg/5 mL liquid 10 mg PO Q6H PRN (Reason: cough) Qty: 118 RF: 0 Discharge Orders: Discharge ED (Routine); Ordered 08/29/21 Ordered By: Dashawn Sawyer Referrals: Gabriela Szymanski FNP [Primary Care Provider] - 4-7 days Discharge Diet: Usual diet Discharge Activity: Resume usual activity Patient Instructions: Chest Pain (ED), Alcohol Intoxication (ED) Activity Restrictions/Additional Instructions: Thank you for visiting the emergency department. You were seen and evaluated for chest pain and near syncope. The exact cause of your symptoms is unclear. Please follow-up with cardiology and your primary care provider. Outpatient tests have been ordered to include an echocardiogram and a stress test. Case management will call you and set these up for you. Return to the emergency department for worsening symptoms or anything else you are concerned about and feel needs emergency department evaluation. 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
--- NOTE | 2021-08-28 22:30 | XRR_ITS ---
PROCEDURE INFORMATION: Exam: XR Chest Exam date and time: 08/28/2021 10:30 PM Age: 70 years old Clinical indication: Pain; Chest pressure; Additional info: Chest pain TECHNIQUE: Imaging protocol: XR of the chest. Views: 1 view. COMPARISON: CR XR chest 2V* [id number] 08/10/2021 3:31 PM FINDINGS: Lungs: Unremarkable. No consolidation. Pleural spaces: Unremarkable. No pleural effusion. No pneumothorax. Heart/Mediastinum: Unremarkable. No cardiomegaly. Bones/joints: Unremarkable. XR/XR chest 1V portable [id number] IMPRESSION: No acute findings.
--- NOTE | 2021-08-28 22:31 | ECG_ITS ---
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 Measurements Intervals [place] Rate: 78 P: 82 MT: 155 QRS: -17 QRSD: 104 T: 74 QT: 402 QTc: 461 Interpretive Statements SINUS RHYTHM WITH OCCASIONAL SUPRAVENTRICULAR PREMATURE COMPLEXES Compared to ECG 11/04/2019 22:17:47 No significant changes Electronically Signed On 08-29-2021 15:32:51 MANAGER OF DIGITAL by Mag Alba M.D. [id number] f
--- NOTE | 2021-08-28 22:31 | CTR_ITS ---
PROCEDURE INFORMATION: Exam: CT Head Without Contrast Exam date and time: 08/28/2021 10:31 PM Age: 70 years old Clinical indication: Altered mental status/memory loss and syncope and collapse; Confusion or disorientation; Additional info: Syncope, AMS TECHNIQUE: Imaging protocol: Computed tomography of the head without contrast. Radiation optimization: All CT scans at this facility use at least one of these dose optimization techniques: automated exposure control; mA and/or kV adjustment per patient size (includes targeted exams where dose is matched to clinical indication); or iterative reconstruction. COMPARISON: No relevant prior studies available. RADIATION DOSE METRICS: Total DLP (mGy-cm): 793.87 FINDINGS: Limitations: The study is slightly limited by mild patient motion artifact. Brain: Age related parenchymal volume loss noted. There is decreased attenuation of the periventricular white matter, consistent with mild chronic microangiopathic white matter disease. No parenchymal edema identified. No intracranial hemorrhage noted. Cerebral ventricles: No ventriculomegaly. Paranasal sinuses: Visualized sinuses are unremarkable. No fluid levels. Mastoid air cells: Unremarkable as visualized. No mastoid effusion. Bones/joints: Unremarkable. No acute fracture. Soft tissues: Unremarkable. CT/CT head wo con* [id number] IMPRESSION: 1. The study is slightly limited by mild patient motion artifact. 2. No acute intracranial abnormality demonstrated.
--- NOTE | 2021-08-28 22:35 | CTR_ITS ---
PROCEDURE INFORMATION: Exam: CT Cervical Spine Without Contrast Exam date and time: 08/28/2021 10:35 PM Age: 70 years old Clinical indication: Injury or trauma; Fall; Blunt trauma; Additional info: Fall, AMS TECHNIQUE: Imaging protocol: Computed tomography images of the cervical spine without contrast. Radiation optimization: All CT scans at this facility use at least one of these dose optimization techniques: automated exposure control; mA and/or kV adjustment per patient size (includes targeted exams where dose is matched to clinical indication); or iterative reconstruction. COMPARISON: CT head wo con* [id number] 08/28/2021 10:42 PM RADIATION DOSE METRICS: Total DLP (mGy-cm): 754.78 FINDINGS: Bones/joints: Vertebral body heights are preserved. No compression fractures are noted. Vertebral alignment is physiologic. Discs/Spinal canal/Neural foramina: Advanced degenerative disc change at C4-C5, C5-C6, and C6-C7. Severe spinal canal stenosis noted at these levels. Severe facet joint degeneration noted on the right at C2-C3, C3-C4, and C4-C5. Lungs: The lung apices are unremarkable. Pleural spaces: No apical pneumothorax demonstrated. Soft tissues: The soft tissues appear unremarkable. CT/CT cervical spin wo con* [id number] IMPRESSION: 1. Degenerative cervical spine changes are noted, as above. 2. No acute abnormality of the cervical spine demonstrated.
[2021-08-28 22:37] LABS: Basophils # 0.2 10^3/uL (0.0-0.1); Eosinophils # 0.2 10^3/uL (0.0-0.8); Hematocrit 48.3 % (42.0-52.0); Hemoglobin 15.6 g/dL (11.7-16.6); Lymphocytes # 2.5 10^3/uL (0.8-4.8); Lymphocytes % 28.3 %; Mean Corpuscular HGB Conc 32.3 g/dL (30.0-36.0); Mean Corpuscular Hemoglobin 29.5 pg (28.0-34.0); Mean Corpuscular Volume 91.3 fl (80-94); Mean Platelet Volume 8.9 fL (7.4-10.4); Monocytes # 0.6 10^3/uL (0.2-0.9); Monocytes % 6.3 %; Neutrophils # 5.45 10^3/uL (1.8-7.7); Neutrophils % 61.1 %; Nucleated Red Blood Cells % 0 %; Platelet Count 297 10^3/cmm (130-400); Red Blood Count 5.29 10^6/uL (4.1-5.3); Red Cell Distribution Width 14.1 % (12.1-15.1); White Blood Count 8.9 10^3/uL (4.0-10.0)
[2021-08-28 22:52] LABS: Troponin(5th) Baseline 96 ng/L (0-15)
[2021-08-28 22:56] LABS: D Dimer 12.06 ug/mIFEU (0-0.59)
--- NOTE | 2021-08-28 22:58 | CTR_ITS ---
PROCEDURE INFORMATION: Exam: CTA Chest With Contrast Exam date and time: 08/28/2021 10:58 PM Age: 70 years old Clinical indication: Injury or trauma; Fall; Generalized; Blunt trauma (contusions or hematomas); Additional info: Fall, AMS, elevated d dimer TECHNIQUE: Imaging protocol: Computed tomographic angiography of the chest with contrast. 3D rendering (Not supervised by radiologist): MIP and/or 3D reconstructed images were created by the technologist. Radiation optimization: All CT scans at this facility use at least one of these dose optimization techniques: automated exposure control; mA and/or kV adjustment per patient size (includes targeted exams where dose is matched to clinical indication); or iterative reconstruction. Contrast material: OMNIPAQUE 350; Contrast volume: 95 ml; Contrast route: INTRAVENOUS (IV); COMPARISON: CTA Chest-Pulmonary Emb [id number] 11/09/2018 7:47 PM RADIATION DOSE METRICS: Total DLP (mGy-cm): 1307.38 FINDINGS: Pulmonary arteries: Normal. No pulmonary emboli. Aorta: Unremarkable. No aortic aneurysm. No aortic dissection. Lungs: A calcified 5.5 mm granuloma seen in the right upper lobe adjacent to the major fissure. Pleural spaces: Minimal strandy and patchy opacities are seen in the left lower lobe peripherally likely representing parenchymal or pleural scarring or atelectasis. Heart: Unremarkable. No cardiomegaly. No pericardial effusion. Lymph nodes: Unremarkable. No enlarged lymph nodes. Bones/joints: There is evidence of nonunion fractures of the 6th and 7th ribs on the left. Soft tissues: Unremarkable. PROCEDURE INFORMATION: Exam: CT Abdomen And Pelvis With Contrast Exam date and time: 08/28/2021 10:58 PM Age: 70 years old Clinical indication: Injury or trauma; Fall; Generalized; Blunt trauma (contusions or hematomas); Additional info: Fall, AMS, elevated d dimer TECHNIQUE: Imaging protocol: Computed tomography of the abdomen and pelvis with contrast. Radiation optimization: All CT scans at this facility use at least one of these dose optimization techniques: automated exposure control; mA and/or kV adjustment per patient size (includes targeted exams where dose is matched to clinical indication); or iterative reconstruction. Contrast material: OMNIPAQUE 350; Contrast volume: 95 ml; Contrast route: INTRAVENOUS (IV); COMPARISON: CTA Chest-Pulmonary Emb [id number] 11/09/2018 7:47 PM RADIATION DOSE METRICS: Total DLP (mGy-cm): 1307.38 FINDINGS: Tubes, catheters and devices: An inferior vena caval filter is present with its apex at the level of the L2 vertebral body. Liver: Normal. No mass. Gallbladder and bile ducts: Status post cholecystectomy. Pancreas: Normal. No ductal dilation. Spleen: Calcifications are seen within the spleen compatible with calcified granulomas. Adrenal glands: Normal. No mass. Kidneys and ureters: Normal. No hydronephrosis. Stomach and bowel: Unremarkable. No obstruction. No mucosal thickening. Appendix: The appendix is visualized and is normal in configuration. Intraperitoneal space: Unremarkable. No free air. No significant fluid collection. Vasculature: Calcifications are seen within the abdominal aorta, iliac arteries and femoral arteries bilaterally . Lymph nodes: Unremarkable. No enlarged lymph nodes. Urinary bladder: Unremarkable as visualized. Reproductive: Unremarkable as visualized. Bones/joints: There is a diffuse loss of disc height seen within the thoracolumbar spine, most severe seen at L1-L2. Moderate loss of disc height and vacuum disc phenomenon is seen at L2-L3 and there has been fusion of the L4 and L5 vertebral bodies. Pedicle screws and posterior rods are seen at the L4-L5 level as well. Soft tissues: Unremarkable. CT/CT angio chest w abd pel w con IMPRESSION: 1. There is no evidence for pulmonary emboli. 2. There are no acute chest findings. IMPRESSION: 1. There are no acute abdominal findings. 2. Inferior vena caval filter with its apex at the L2 vertebral body level. 3. Normal appendix 4. There are no acute arterial findings. COMMENTS: For patients with an IVC filter, recommend assessment for a management plan for the patient's IVC filter. If there is no established management plan, recommend referral to an interventional clinician on a nonemergent basis for evaluation.
[2021-08-28 22:59] LABS: Alanine Aminotransferase 25 U/L (0-41); Albumin Level 3.8 g/dL (3.5-5.2); Alkaline Phosphatase 108 IU/L (40-130); Anion Gap 18.2 (5-19); Aspartate Amino Transferase 21 U/L (0-40); Blood Urea Nitrogen 8 mg/dL (8-23); Calcium 9.2 mg/dL (8.5-10.5); Carbon Dioxide 27 mmol/L (22-29); Chloride 102 mmol/L (98-107); Globulin 2.7 g/dL (1.3-4.6); Glomerular Filtration Rate 83.7 mL/min (90-130); Glucose 134 mg/dL (65-115); Lipase 103 U/L (13-60); NT Pro B Type Natriuretic Pept 335 pg/mL (0-125); Osmolality Calculated 298 mOsm/kg (285-295); Potassium 3.2 mmol/L (3.5-5.1); Sodium 144 mmol/L (136-145); Total Bilirubin 0.3 mg/dL (0.15-1.2); Total Protein 6.5 g/dL (6.6-8.7)
[2021-08-28] MEDS: iohexol 350 mg/mL 100 mL Btl IV (23:24)
[2021-08-28] MEDS: ipratropium-albuterol 3 mL Neb INHALATION (23:27)
[2021-08-28 23:28] VITALS: PULSE 77; RESP 19; O2SAT 98
[2021-08-29] MEDS: potassium chloride ER 20 mEq Tablet 40 MEQ PO (00:07)
--- NOTE | 2021-08-29 00:31 | ECG_ITS ---
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 Measurements Intervals [place] Rate: 75 P: 71 MI: 159 QRS: -11 QRSD: 111 T: 61 QT: 422 QTc: 473 Interpretive Statements SINUS RHYTHM MODERATE INTRAVENTRICULAR CONDUCTION DELAY [110+ ms QRS DURATION] Compared to ECG 08/28/2021 22:25:43 Intraventricular conduction delay now present Electronically Signed On 08-29-2021 16:54:53 HOUSE NURSE by Mag Alba M.D. [email or web address]/store/[id number]
[2021-08-29 00:51] LABS: Troponin 5 2HR Delta 6.2 ABS# (0-10)
[2021-08-29 01:24] LABS: Troponin 5 2HR 102.2 ng/L (0-15)
[2021-08-29 01:34] VITALS: BP 143/70; PULSE 74; RESP 27; O2SAT 94
[2021-08-29 02:15] VITALS: BP 168/83
--- NOTE | 2021-08-30 15:26 | DCPLANNER ---
clinic manager had message to schedule an out patient stress test and echo for patient. clinic manager faxed signed order to centralized scheduling, who will call patient with appointment information.
--- NOTE | 2021-10-05 08:10 | DCPLANNER ---
Addendum entered by Tasia Gordon 10/28/21 11:35: Patient had a stress test scheduled for 10.19.21 - this was cancelled Patient had an outpatient echo scheduled for 10.18.21 - patient did attend appointment. Addendum entered by Tasia Gordon 10/11/21 07:21: Patient has an echo scheduled for Monday, October 18, 2021 at 8:00. Centralized scheduling will call patient with appointment information. Original Note: Patient has an outpatient stress test scheduled for Tuesday, October 19, 2021 at 9:15, centralized scheduling will call patient with appointment information. manager of manufacturing was also told that echo that was ordered for patient will need authorization, will be scheduled when the authorization is received.
== END 2021-08-29 02:17 | disposition home or self-care (01) ==
PROVIDERS: Emergency Medicine; Emergency Provider Emergency Medicine; PCP Nurse Practitioner Family
DX: R07.9 Chest pain, unspecified (principal); R55 Syncope and collapse; Z79.82 Long term (current) use of aspirin; E78.5 Hyperlipidemia, unspecified; I10 Essential (primary) hypertension; Z77.22 Contact with and (suspected) exposure to environmental tobacco smoke (acute) (chronic); J44.9 Chronic obstructive pulmonary disease, unspecified
CPT/HCPCS: 70450; 71045; 71275; 72125; 74177; 80053; 83690; 83880; 84484; 85025; 85378; 93005; 94640; 99284; Q9967

== ENCOUNTER 2021-10-18 07:47 | Outpatient (CLI) | payer MEDICARE, SELFPAY ==
--- NOTE | 2021-10-18 08:04 | USCV_ITS ---
Stew Gardner Age: 70 Gender: M : 1950 Exam Date: 10/18/2021 08:15 Ordering Phys: Dillon Israel DO Technologist: KELLI Exam Location: [facility] [place] [place]_ Indication: Hx [place] IVC filter, s/p DVTs post-op back surgery 2008. BP: / HR: 65 Rhythm: Sinus Technical Quality: Good MEASUREMENTS (Male / Female) Normal Values 2D ECHO LV Diastolic Diameter PLAX 4.3 cm 4.2 - 5.9 / 3.9 - 5.3 cm LV Systolic Diameter PLAX 2.7 cm IVS Diastolic Thickness 1.5 cm 0.6 - 1.0 / 0.6 - 0.9 cm IVS Systolic Thickness 1.9 cm LVPW Diastolic Thickness 1.6 cm 0.6 - 1.0 / 0.6 - 0.9 cm LVPW Systolic Thickness 2.0 cm LVOT Diameter 1.9 cm LV Ejection Fraction 2D Teich 66.8 % LV Ejection Fraction MOD 2C 67.8 % LV Ejection Fraction 2C AL 68.3 % LA Diameter 3.6 cm LA Width 3.3 cm LA Height 5.1 cm RA Width 4.0 cm RA Height 4.4 cm Aorta at Sinotubular Diameter 3.1 cm M-MODE Aortic Annulus Diameter 3.2 cm LA Ao Ratio MM 1.1 MV E Point Septal Separation 0.4 cm DOPPLER AV Peak Velocity 119.0 cm/s LVOT Peak Velocity 102.0 cm/s AV Area Cont Eq vti 3.0 cm squared AV Area Cont Eq pk 2.5 cm squared MV Peak Velocity 101.0 cm/s MV Area PHT 3.0 cm squared Mitral E to A Ratio 0.8 MV E' Velocity 69.0 cm/s TR Peak Velocity 236.0 cm/s TR Peak Gradient 22.3 mmHg TV Peak E Velocity 59.0 cm/s Right Atrial Pressure 5.0 mmHg Pulmonary Artery Systolic Pressu 27.3 mmHg PV Peak Velocity 99.0 cm/s RV Acceleration Time 0.1 s RV Ejection Time 0.3 s RV AcT/ET 0.3 FINDINGS Left Ventricle Normal left ventricular size, systolic function and wall thickness, with no regional wall motion abnormalities. Left ventricular ejection fraction is estimated at 70 %. Normal diastolic function. Right Ventricle Normal right ventricular size and systolic function. Right ventricular systolic pressure 27.3 mmHg. Right Atrium Normal right atrial size. Right atrial pressure estimated at 3 mmHg. Left Atrium Normal left atrial size. Mitral Valve Structurally normal mitral valve. No mitral valve stenosis. Trace mitral valve regurgitation. Aortic Valve Structurally normal trileaflet aortic valve. No aortic valve stenosis. No aortic valve regurgitation. Tricuspid Valve Structurally normal tricuspid valve. No tricuspid valve stenosis. Trace tricuspid valve regurgitation. Pulmonic Valve Structurally normal pulmonic valve. No pulmonary valve stenosis. Trace pulmonary valve regurgitation. Pericardium No pericardial effusion. Aorta Normal size aortic root and proximal ascending aorta. Normal- sized inferior vena cava with normal respiratory variation. CONCLUSIONS 1. Normal left ventricular size, systolic function and wall thickness, with no regional wall motion abnormalities. Left ventricular ejection fraction is estimated at 70 %. Normal diastolic function. 2. Normal right ventricular size and systolic function. 3. Normal pulmonary artery pressure 4. No significant valvular abnormality. 5. No significant change when compared to previous study dated . Mag Alba MD (Electronically Signed) Final Date: 18 October 2021 15:46 S
== END 2021-10-18 07:48 | disposition home or self-care (01) ==
LOC: RAD 07:58
PROVIDERS: PCP Nurse Practitioner Family; Visit Provider Emergency Medicine
DX: R07.9 Chest pain, unspecified (principal)
CPT/HCPCS: 93306

== ENCOUNTER → 2022-01-05 08:10 | Outpatient (BNVA) | payer MEDICARE, SELFPAY | PROVIDERS: PCP Nurse Practitioner Family; Visit Provider Internal Medicine Critical Care Medicine | DX: J44.1 Chronic obstructive pulmonary disease with (acute) exacerbation (principal); F17.210 Nicotine dependence, cigarettes, uncomplicated; J30.9 Allergic rhinitis, unspecified; E78.5 Hyperlipidemia, unspecified; I10 Essential (primary) hypertension | CPT/HCPCS: 99214 ==

== ENCOUNTER → 2022-01-10 08:59 | Outpatient (BNVA) | payer MEDICARE, SELFPAY | PROVIDERS: PCP Nurse Practitioner Family; Visit Provider Surgery | DX: K63.5 Polyp of colon (principal); K21.9 Gastro-esophageal reflux disease without esophagitis | CPT/HCPCS: 99204 ==

== ENCOUNTER 2022-03-13 11:40 | Outpatient (CLI) | payer MEDICARE, SELFPAY ==
--- NOTE | 2022-03-13 11:46 | CT_ITS ---
WS: [id number] LDCT LUNG CANCER SCREENING TECHNIQUE: Noncontrast CT of the chest with coronal and sagittal reformatted images. CLINICAL INFORMATION: Lung cancer screening COMPARISON: None. DLP: 76.41 mGy.cm DIvol: Mean CTDIvol: 1.60 (mGy) All CT scans at [facility] use at least one of these dose optimization techniques: automat ed exposure control; mA and/or kV adjustment per patient size (includes targeted exams where dose is matched to clinical indication); or iterative reconstruction. FINDINGS: Mild chronic emphysematous changes. No suspicious pulmonary parenchymal normalities. A few calcified granulomas. Slight fibrosis LEFT lower lobe laterally. No mediastinal or hilar lymphadenopathy. Aortic calcification. Coronary calcification. Normal GE junction. Adrenal glands are normal. No axill osito lymphadenopathy. Normal thoracic spine. Cholecystectomy clips. CT/CT lung screening [id number] IMPRESSION: LUNG-RADS: 1-Negative FOLLOW UP: 12 Month: Continue annual screening with LDCT
== END 2022-03-13 11:41 | disposition home or self-care (01) ==
PROVIDERS: PCP Nurse Practitioner Family; Visit Provider Internal Medicine Critical Care Medicine
DX: Z12.2 Encounter for screening for malignant neoplasm of respiratory organs (principal); F17.210 Nicotine dependence, cigarettes, uncomplicated
CPT/HCPCS: 71271

== ENCOUNTER 2022-03-22 06:25 | Day surgery (SDC) | payer MEDICARE, SELFPAY ==
[2022-03-20 10:26] VITALS: BMI 25.0
[2022-03-22 06:46] VITALS: BP 143/74; PULSE 85; RESP 18; TEMP 36.5; O2SAT 92
[2022-03-22] MEDS: sodium chloride 0.9% 1,000 ML 30 ML IV (06:50)
--- NOTE | 2022-03-22 07:23 | ANES.PREANE2 ---
Pre-Anesthetic Assessment Height/Weight: Height 1.7 m Weight 72.575 kg Temp Pulse Resp BP Pulse Ox 97.7 F 85 18 143/74 92 03/22/22 06:46 03/22/22 06:46 03/22/22 06:46 03/22/22 06:46 03/22/22 06:46 Preop Diagnosis: diagnostic Operation Date: 03/22/22 08:00 Proposed Procedures p 0[address] EGD, [address]69 colonscopy K63.5,K21.9(Not Applicable) - Ramesh Leonard MD s Colonoscopy(Not Applicable) - Ramesh Leonard MD Familial anesthetic complications: None Was Beta Mulugeta taken within 24 hours: N/A Was Clonidine taken within 24 hours: N/A Last intake: Intake Last Liquid Date 03/21/22 Last Liquid Time 20:00 Last Solid Date 03/20/22 Last Solid Time 14:00 Social Tobacco and No alcohol Exam alert, oriented x 3, clear to auscultation bilaterally and regular rate & rhythm Airway Mallampati: Class III Dentition: false Pulmonary Chronic Obstructive Pulmonary Disease (moderate) L pleural effusion CV/HEM Hypertension GI Gastroesophageal Reflux Disease Metabolic Diabetes Mellitus and Hyperlipidemia Anesthetic Plan ASA status: 3 Anesthesia: MAC Risk of > 500 ml blood loss (7ml/kg in children): No Medications/Allergies Home Medications Medication Instructions Recorded Confirmed Last Taken Type albuterol sulfate 2.5 mg INHALATION DAILY 11/04/19 03/22/22 03/20/22 History albuterol sulfate 90 mcg/actuation 2 puff INHALATION PRN PRN 11/04/19 03/22/22 03/20/22 History aerosol inhaler (Ventolin HFA) aspirin 81 mg tablet,delayed 81 mg PO DAILY 11/04/19 03/22/22 03/19/22 History release gemfibrozil 600 mg tablet 600 mg PO DAILY 11/04/19 03/22/22 03/20/22 History multivitamin (Multiple Vitamins) 1 tab PO DAILY 11/04/19 03/22/22 03/20/22 History omeprazole 40 mg capsule,delayed 40 mg PO DAILY 11/04/19 03/22/22 03/20/22 History release dextromethorphan HBr 10 mg/5 mL 10 mg (5 mL) PO Q6H PRN #118 ml 11/05/19 03/22/22 03/20/22 Rx oral liquid ascorbic acid (vitamin C) 500 mg 500 mg PO DAILY 12/15/19 03/22/22 03/20/22 History capsule,extended release budesonide 0.5 mg/2 mL suspension 0.5 mg (2 mL) INHALATION BID 30 04/19/21 03/22/22 03/20/22 Rx for nebulization (Pulmicort) Days #120 ml ipratropium 0.5 mg-albuterol 3 mg See Rx Instructions .ROUTE 04/19/21 03/22/22 03/20/22 Rx (2.5 mg base)/3 mL nebulization .COMPLEX #360 milliliter soln fluticasone propionate 50 1 spray INTRANASAL Q12H 30 Days 09/12/21 03/22/22 03/20/22 Rx mcg/actuation nasal #48 g spray,suspension (Flonase Allergy Relief) azelastine 137 mcg (0.1 %) nasal 1 spray INTRANASAL BID 30 Days #30 01/05/22 03/22/22 03/20/22 Rx spray aerosol ml amlodipine 2.5 mg tablet 2.5 mg PO DAILY 01/10/22 03/22/22 03/20/22 History lisinopril 40 mg tablet 60 mg PO DAILY tab 01/10/22 03/22/22 03/20/22 History rosuvastatin 20 mg tablet 20 mg PO DAILY 01/10/22 03/22/22 03/20/22 History Allergies Allergy/AdvReac Type Severity Reaction Status Date / Time insect venom Allergy Severe ALGY-Anaphy Verified 03/22/22 06:49 laxis Tetanus Vaccines and Toxoid Allergy ALGY-Anaphy Verified 03/22/22 06:49 laxis Current Medications Generic Name Dose Route Start Last Admin Trade Name Freq PRN Reason Stop Dose Admin Sodium Chloride 1,000 mls @ 30 mls/hr 03/22/22 06:45 03/22/22 06:50 Sodium Chloride 0.9% IV 03/23/22 06:44 30 mls/hr .Q24H YAYA Administration PFSH Anesthesia Medical History (Updated 01/10/22 @ 12:59 by Ramesh Leonard MD) COPD (chronic obstructive pulmonary disease) DVT (deep venous thrombosis) Hyperlipidemia Hypertension Surgical History (Updated 01/10/22 @ 09:34 by Ramesh Leonard MD) H/O spinal fusion History of cholecystectomy History of colonoscopy History of umbilical hernia repair Family History Father CAD (coronary artery disease) Mother CAD (coronary artery disease) Diabetes Parkinsons disease Other Autoimmune disease Social History Smoking and tobacco status: current every day smoker (2 cigar cigarrettes per day) cigars Cigars smoked per week: 14 Years smoked cigars: 10 Second hand smoke exposure: Yes Smoking risk assessment/counseling performed?: Yes Alcohol intake: never Counseling given: No Counseling given: No Lives independently: Yes Household members: spouse Marital status: 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
--- NOTE | 2022-03-22 07:57 | W.PM.OPSFHP ---
Same Day Surgery H&P Indication for Procedure/HPI DATE OF PROCEDURE: March 22, 2022 CHIEF COMPLAINT/INDICATIONFOR SURGICAL PROCEDURE: GERD/colon polyps PREOP DIAGNOSIS: diagnostic PLANNED PROCEDURE: Operation Date: 03/22/22 08:00 Proposed Procedures p 78530 EGD, [address]20 colonscopy K63.5,K21.9(Not Applicable) - Ramesh Leonard MD s Colonoscopy(Not Applicable) - Ramesh Leonard MD Medications/Allergies* Home Medications Medication Instructions Recorded Confirmed Type albuterol sulfate 2.5 mg INHALATION DAILY 11/04/19 03/22/22 History albuterol sulfate 90 mcg/actuation 2 puff INHALATION PRN PRN 11/04/19 03/22/22 History aerosol inhaler (Ventolin HFA) aspirin 81 mg tablet,delayed 81 mg PO DAILY 11/04/19 03/22/22 History release gemfibrozil 600 mg tablet 600 mg PO DAILY 11/04/19 03/22/22 History multivitamin (Multiple Vitamins) 1 tab PO DAILY 11/04/19 03/22/22 History omeprazole 40 mg capsule,delayed 40 mg PO DAILY 11/04/19 03/22/22 History release ascorbic acid (vitamin C) 500 mg 500 mg PO DAILY 12/15/19 03/22/22 History capsule,extended release amlodipine 2.5 mg tablet 2.5 mg PO DAILY 01/10/22 03/22/22 History lisinopril 40 mg tablet 60 mg PO DAILY tab 01/10/22 03/22/22 History rosuvastatin 20 mg tablet 20 mg PO DAILY 01/10/22 03/22/22 History Allergies/Adverse Reactions Allergy/AdvReac Type Severity Reaction Status Date / Time insect venom Allergy Severe ALGY-Anaphy Verified 03/22/22 06:49 laxis Tetanus Vaccines and Toxoid Allergy ALGY-Anaphy Verified 03/22/22 06:49 laxis Current Medications: Generic Name Dose Route Start Last Admin Trade Name Freq PRN Reason Stop Dose Admin Sodium Chloride 1,000 mls @ 30 mls/hr 03/22/22 06:45 03/22/22 06:50 Sodium Chloride 0.9% IV 03/23/22 06:44 30 mls/hr .Q24H YAYA Administration Pertinent History/Comorbid Conditions* Medical History (Updated 01/10/22 @ 12:59 by Ramesh Leonard MD) COPD (chronic obstructive pulmonary disease) DVT (deep venous thrombosis) Hyperlipidemia Hypertension Surgical History (Updated 01/10/22 @ 09:34 by Ramesh Leonard MD) H/O spinal fusion History of cholecystectomy History of colonoscopy History of umbilical hernia repair Family History (Updated 12/15/19 @ 09:12 by Michela Mckeon RN) Diabetes Mother CAD (coronary artery disease) Father Mother Autoimmune disease Parkinsons disease Mother Social History Smoking and tobacco status: current every day smoker (2 cigar cigarrettes per day) cigars Cigars smoked per week: 14 Years smoked cigars: 10 Second hand smoke exposure: Yes Smoking risk assessment/counseling performed?: Yes Alcohol intake: never Counseling given: No Counseling given: No Lives independently: Yes Household members: spouse Marital status: 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
[2022-03-22 08:57] VITALS: BP 132/73; PULSE 66; RESP 18; TEMP 36.1; O2SAT 90
[2022-03-22 09:08] VITALS: BP 115/63; PULSE 70; RESP 18; TEMP 36.2; O2SAT 93
--- NOTE | 2022-03-22 12:51 | ANE.PACU2 ---
Inpatient post-anesthesia follow up: Airway intact: Yes Vital signs: Temperature 97.1 F Pulse Rate 70 Respiratory Rate 18 Blood Pressure 115/63 Pulse Oximetry 93 Oxygen Delivery Me thod Room Air Oxygen Flow Rate Fraction of Inspir ed Oxygen Hydration adequate: Yes Nausea and vomiting: No Pain level: 1 Mental status: Baseline
== END 2022-03-22 09:23 | disposition home or self-care (01) ==
PROVIDERS: PCP Nurse Practitioner Family; Visit Provider Surgery
PROC: 0DJ08ZZ Inspection of Upper Intestinal Tract, Via Natural or Artificial Opening Endoscopic (ICD-10-PCS; CPT 43235; principal; 2022-03-22 08:00)
PROC: 0DJD8ZZ Inspection of Lower Intestinal Tract, Via Natural or Artificial Opening Endoscopic (ICD-10-PCS; CPT 45378; 2022-03-22 08:00)
DX: D12.0 Benign neoplasm of cecum (principal); D12.4 Benign neoplasm of descending colon; D12.3 Benign neoplasm of transverse colon; D12.5 Benign neoplasm of sigmoid colon; K21.9 Gastro-esophageal reflux disease without esophagitis; K44.9 Diaphragmatic hernia without obstruction or gangrene; K29.70 Gastritis, unspecified, without bleeding; J44.9 Chronic obstructive pulmonary disease, unspecified; I10 Essential (primary) hypertension; E11.9 Type 2 diabetes mellitus without complications; E78.5 Hyperlipidemia, unspecified; Z79.82 Long term (current) use of aspirin; Z86.718 Personal history of other venous thrombosis and embolism; Z98.1 Arthrodesis status; Z90.49 Acquired absence of other specified parts of digestive tract; Z82.49 Family history of ischemic heart disease and other diseases of the circulatory system; Z83.3 Family history of diabetes mellitus
CPT/HCPCS: 43239; 45380; 45385; 88305; J2704; J7030

== ENCOUNTER → 2022-04-03 11:51 | Outpatient (BNVA) | payer MEDICARE, SELFPAY | PROVIDERS: PCP Nurse Practitioner Family; Visit Provider Surgery | DX: Z09 Encounter for follow-up examination after completed treatment for conditions other than malignant neoplasm (principal) | CPT/HCPCS: 99212 ==

== ENCOUNTER → 2022-07-10 10:58 | Outpatient (BNVA) | payer MEDICARE, SELFPAY | PROVIDERS: PCP Nurse Practitioner Family; Visit Provider Internal Medicine Pulmonary Disease | DX: J44.9 Chronic obstructive pulmonary disease, unspecified (principal); R70.0 Elevated erythrocyte sedimentation rate; J30.9 Allergic rhinitis, unspecified; F17.210 Nicotine dependence, cigarettes, uncomplicated; M25.60 Stiffness of unspecified joint, not elsewhere classified | CPT/HCPCS: 99214 ==

== ENCOUNTER 2022-12-26 11:08 | Outpatient (CLI) | payer MEDICARE, SELFPAY ==
--- NOTE | 2022-12-26 11:20 | CT_ITS ---
WS: [id number] CT CHEST ANGIOGRAPHY WITH REFORMATS HISTORY: ELEVATED D DIMER TECHNIQUE: Contiguous axial images are obtained through the chest during arterial injection of intrav enous contrast. Images are reconstructed to evaluate the pulmonary arteries. MIP imaging also reviewe d. All CT scans at [facility] use at least one of these dose optimization techniques: automat ed exposure control; mA and/or kV adjustment per patient size (includes targeted exams where dose is matched to clinical indication); or iterative reconstruction. CONTRAST: Omnipaque 350; 100 mL IV. DLP: 361.01 mGy.cm COMPARISON: 11/09/2018 There is a very subtle filling defect in the proximal RIGHT main pulmonary artery which could be a ve ry soft emboli. There is no RIGHT heart strain. This finding was not present on prior CT angiograms. This also may be an artifact from mixing of contrast and blood. There are no additional filling defec ts. Normal size pulmonary artery. Atherosclerosis aorta. No RIGHT heart strain. Mild LEFT ventricular hypertrophy. Mild atherosclerosis aorta. Coronary artery calcifications. Mildly prominent hilar lymph nodes measur ing up to 13 mm. This may be reactive. Indeterminate subcarinal lymph node. Benign pulmonary granulomas. Remote left-sided rib fractures. Prior cholecystectomy. Splenic granulomata. CT/CT angio chest PE protcl [id number] IMPRESSION: 1. Focal, nonocclusive soft tissue filling defect in the proximal RIGHT main p ulmonary artery. Differential includes artifact versus soft forming emboli. The re is no RIGHT heart strain or secondary findings of pulmonary emboli. No addit ional filling defects. 2. No RIGHT heart strain. 3. LVH. Patient states provider will call him with report.
[2022-12-26] MEDS: iohexol 350 mg/mL 500 mL Btl (per mL) IV (11:34)
== END 2022-12-26 11:09 | disposition home or self-care (01) ==
LOC: RAD 11:14
PROVIDERS: PCP Nurse Practitioner Family; Visit Provider Nurse Practitioner Family
DX: R79.1 Abnormal coagulation profile (principal)
CPT/HCPCS: 71275; Q9967

== ENCOUNTER 2023-01-01 23:33 | Inpatient (IN) | payer MEDICARE, SELFPAY ==
--- NOTE | 2023-01-01 23:34 | XRR_ITS ---
PROCEDURE INFORMATION: Exam: XR Chest Exam date and time: 01/01/2023 11:54 PM Age: 72 years old Clinical indication: Shortness of breath; Additional info: SOB TECHNIQUE: Imaging protocol: Radiologic exam of the chest. Views: 1 view. COMPARISON: CT angio chest PE protcl [id number] 12/26/2022 11:28 AM FINDINGS: Lungs: Calcified granuloma right midlung is unchanged. No focal infiltrate. Pleural spaces: Unremarkable. No pleural effusion. No pneumothorax. Heart/Mediastinum: Unremarkable. No cardiomegaly. Bones/joints: Unremarkable. XR/XR chest 1V portable [id number] IMPRESSION: No acute findings.
--- NOTE | 2023-01-01 23:41 | ED_ITS ---
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 He denies any cough or fever he had a CT scan done a week ago showed a possible pulmonary embolism he is on blood thinners she denies any chest pain denies any fevers. Associated symptoms: Deny abdominal pain, chest pain, fever(s), nausea or vomiting Review of Systems Const: Denies: fever(s), chills or body aches Eyes: Denies: eye discomfort ENMT: Denies: throat pain or dental pain Card: Denies: chest pain Resp: Reports: dyspnea, non-productive cough and wheezing GI: Denies: abdominal pain, nausea, vomiting or diarrhea : Denies: dysuria Musc: Denies: neck pain or back pain Neuro: Denies: headache(s) PFSH ED PFSH: Medical History COPD (chronic obstructive pulmonary disease) DVT (deep venous thrombosis) Hyperlipidemia Hypertension Surgical History H/O spinal fusion History of cholecystectomy History of colonoscopy History of umbilical hernia repair Family History Father CAD (coronary artery disease) Mother CAD (coronary artery disease) Diabetes Parkinsons disease Other Autoimmune disease Social History Smoking and tobacco status: current every day smoker (2 cigar cigarrettes per day) cigars Cigars smoked per week: 14 Years smoked cigars: 10 Second hand smoke exposure: Yes Smoking risk assessment/counseling performed?: Yes Alcohol intake: never Counseling given: No Substance/Drug Use: never Counseling given: No Lives independently: Yes Household members: spouse Marital status: 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 Do you think of yourself as: Straight/Heterosexual Current gender identity: Male Physical Exam 2 Const: COMMON NORMALS: patient oriented x3 GENERAL APPEARANCE: in distress and ill appearing HENMT: COMMON NORMALS: normocephalic and atraumatic HEAD & SCALP: normocephalic and atraumatic Eye: COMMON NORMALS: conjunctivae normal CONJUNCTIVA: Yes conjunctivae normal Neck/C-Spine: COMMON NORMALS: full ROM and supple Chest: COMMONS NORMALS: normal inspection of the chest and normal palpation of entire chest wall Resp: COMMON NORMALS: No use of accessory muscles EFFORT & INSPECTION: Yes tachypneic and Yes respiratory distress AUSCULTATION: wheezes Cardio: COMMON NORMALS: regular rate, regular rhythm and No murmurs present (Cardio) RATE: regular rate RHYTHM: regular rhythm GI: COMMON NORMALS: Normal to inspection, nondistended, normoactive bowel sounds present, Soft to palpation, non-tender and no masses PALPATION: Yes Soft to palpation Extremity: COMMON NORMALS: normal to inspection and full ROM Neuro: COMMON NORMALS: patient oriented x3, moves all extremities and no focal motor deficits Psych: COMMON NORMALS: mental status grossly normal, Normal thought process present and cooperative THOUGHT PROCESS: Normal thought process present Skin: COMMON NORMALS: no rashes or lesions noted and no wounds GENERAL SKIN EXAM: no rashes or lesions noted Course Vital Signs: Vital signs: Vital Signs Pulse Rate 78 01/02/23 00:45 Respiratory Rate 25 H 01/01/23 23:56 Blood Pressure 150/75 01/02/23 00:45 Pulse Oximetry 92 01/02/23 00:45 Oxygen Delivery Me thod Nasal Cannula 01/02/23 00:45 Oxygen Flow Rate 4 01/02/23 00:16 MDM - SOB/Dyspnea Medical Decision Making Patient presents here with shortness of breath COPD exacerbation with wheezing he has had slight improvement after breathing treatment he still requiring [address] recently showed a PE he has no signs of ill effects from that his Trope and BNP are normal seems more to be COPD I spoke to the hospitalist will admit at this time. Differential Diagnosis Likely acute exacerbation of chronic obstructive airways disease and pulmonary embolism; Unlikely congestive heart failure or community acquired pneumonia Lab Data 01/01/23 23:45 01/01/23 23:45 Labs/Radiology: Laboratory Results WBC 11.4 10^3/uL (4.0-10.0) H 01/01/23 23:45 RBC 5.05 10^6/uL (4.1-5.3) 01/01/23 23:45 Hgb 13.4 g/dL (11.7-16.6) 01/01/23 23:45 Hct 44.1 % (42.0-52.0) 01/01/23 23:45 MCV 87.3 fl (80-94) 01/01/23 23:45 MCH 26.5 pg (28.0-34.0) L 01/01/23 23:45 MCHC 30.4 g/dL (30.0-36.0) 01/01/23 23:45 RDW 16.5 % (12.1-15.1) H 01/01/23 23:45 Plt Count 357 10^3/cmm (130-400) 01/01/23 23:45 MPV 8.9 fL (7.4-10.4) 01/01/23 23:45 Neut % (Auto) 63.4 % 01/01/23 23:45 Lymph % (Auto) 22.7 % 01/01/23 23:45 Snyder % (Auto) 6.8 % 01/01/23 23:45 Eos % (Auto) 5.4 % 01/01/23 23:45 Baso % (Auto) 1.3 % 01/01/23 23:45 Neut # (Auto) 7.23 10^3/uL (1.8-7.7) 01/01/23 23:45 Lymph # (Auto) 2.6 10^3/uL (0.8-4.8) 01/01/23 23:45 Snyder # (Auto) 0.8 10^3/uL (0.2-0.9) 01/01/23 23:45 Eos # (Auto) 0.6 10^3/uL (0.0-0.8) 01/01/23 23:45 Baso # (Auto) 0.2 10^3/uL (0.0-0.1) H 01/01/23 23:45 Nucleated RBC % (auto) 0 % 01/01/23 23:45 Nucleated RBCs # 0.0 /100WBC 01/01/23 23:45 Specimen Type Arterial 01/01/23 00:02 Sample Site Radial, left 01/01/23 00:02 ABG pH 7.42 (7.35-7.45) 01/01/23 00:02 ABG pCO2 44.5 mmHg (35-45) 01/01/23 00:02 ABG pO2 65.8 mmHg (80.0-100.0) L 01/01/23 00:02 ABG HCO3 28.9 mmol/L (22-26) H 01/01/23 00:02 ABG Base Excess 3.8 mmol/L (-2.0-2.0) H 01/01/23 00:02 Stan Test Pos 01/01/23 00:02 Hematocrit 38.8 % (42-52) L 01/01/23 00:02 O2 Delivery Device Nc 01/01/23 00:02 O2 Liters/Min 4.0 % 01/01/23 00:02 Rail Equipment Operator ID [email or web address] 01/01/23 00:02 Sodium 140 mmol/L (136-145) 01/01/23 23:45 Potassium 3.9 mmol/L (3.5-5.1) 01/01/23 23:45 Chloride 100 mmol/L (98-107) 01/01/23 23:45 Carbon Dioxide 28 mmol/L (22-29) 01/01/23 23:45 Anion Gap 15.9 (5-19) 01/01/23 23:45 BUN 21 mg/dL (8-23) 01/01/23 23:45 Creatinine 1.0 mg/dL (0.7-1.2) 01/01/23 23:45 GFR Calculation Not Reportable 01/01/23 23:45 Glucose 57 mg/dL (65-115) L 01/01/23 23:45 Calculated Osmolality 291 mOsm/kg (285-295) 01/01/23 23:45 Calcium 9.7 mg/dL (8.5-10.5) 01/01/23 23:45 Total Bilirubin 0.6 mg/dL (0.15-1.2) 01/01/23 23:45 AST 21 U/L (0-40) 01/01/23 23:45 ALT 16 U/L (0-41) 01/01/23 23:45 Alkaline Phosphatase 106 U/L (40-130) 01/01/23 23:45 Troponin T Baseline 59 ng/L (0-15) H 01/01/23 23:45 NT-Pro-B Natriuret Pep 132 pg/mL (0-125) H 01/01/23 23:45 Total Protein 7.9 g/dL (6.6-8.7) 01/01/23 23:45 Albumin 4.0 g/dL (3.5-5.2) 01/01/23 23:45 Globulin 3.9 g/dL (1.3-4.6) 01/01/23 23:45 Critical Care Time Critical Care Time: Critical Care Time: Yes Total Critical Care Time: 40 Attestation: The high probability of a clinically significant, sudden or life threatening deterioration of the patient's resp system(s) required my full and direct attention, intervention and personal management. The critical care time is as shown. This time is in addition to time spent performing any reported procedures but includes the following: [x] Data and vital sign review and interpretation [x] Patient assessment, examination and intervention [x] Documentation [x] Medication orders and management Discharge Plan Discharge Patient Disposition: Admitted As Inpatient Clinical Impression: COPD (chronic obstructive pulmonary disease), Acute respiratory failure with hypoxemia Condition: Stable Prescriptions: No Action ascorbic acid (vitamin C) 500 mg capsule, extended release 500 mg PO DAILY azelastine 137 mcg (0.1 %) aerosol,spray 1 spray intranasal BID 30 Days Qty: 30 2RF Rx Instructions: administer into each nostril formoterol fumarate 20 mcg/2 mL solution for nebulization 2 ml inhalation BID Qty: 120 11RF revefenacin 175 mcg/3 mL solution for nebulization 175 mcg inhalation DAILY Qty: 90 11RF amlodipine 2.5 mg tablet 2.5 mg PO DAILY rosuvastatin 20 mg tablet 20 mg PO DAILY budesonide [Pulmicort] 0.5 mg/2 mL suspension for nebulization 0.5 mg INHALATION BID 30 Days Qty: 120 4RF ipratropium-albuterol 0.5 mg-3 mg(2.5 mg base)/3 mL solution for nebulization See Rx Instructions .ROUTE .COMPLEX Qty: 360 3RF Dose Instruction: USE 1 VIAL IN NEBULIZER 4 TIMES DAILY FOR 30 DAYS Rx Instructions: USE 1 VIAL IN NEBULIZER 4 TIMES DAILY FOR 30 DAYS fluticasone propionate [Flonase Allergy Relief] 50 mcg/actuation spray,suspension 1 spray intranasal Q12H 30 Days Qty: 48 1RF Rx Instructions: administer into each nostril multivitamin [Multiple Vitamins] Tablet 1 tab PO DAILY albuterol sulfate 2.5 mg /3 mL (0.083 %) solution for nebulization 2.5 mg inhalation DAILY Rx Instructions: 2.5 MG/3ML CAITLYN IN NEBULIZER DAILY omeprazole 40 mg capsule,delayed release(DR/EC) 40 mg PO DAILY aspirin 81 mg Tablet,Delayed Release (Dr/Ec) 81 mg PO DAILY albuterol sulfate [Ventolin HFA] 90 mcg/actuation HFA aerosol inhaler 2 puff INHALATION PRN PRN (Reason: Shortness Of Breath) dextromethorphan HBr 10 mg/5 mL liquid 10 mg PO Q6H PRN (Reason: cough) Qty: 118 0RF lisinopril 40 mg tablet 60 mg PO DAILY Referrals: Gabriela Szymanski FNP [Primary Care Provider] - Coding Level of Care Code ED Transaction Coordinator for Jackelyn Holman
[2023-01-01 23:44] VITALS: BP 164/90; PULSE 89; RESP 28; O2SAT 88
[2023-01-01 23:50] VITALS: O2SAT 92
[2023-01-01 23:51] VITALS: BP 133/70; PULSE 84; RESP 26; O2SAT 96
[2023-01-01 23:51] LABS: Basophils # 0.2 10^3/uL (0.0-0.1); Basophils % 1.3 %; Eosinophils # 0.6 10^3/uL (0.0-0.8); Eosinophils % 5.4 %; Hematocrit 44.1 % (42.0-52.0); Hemoglobin 13.4 g/dL (11.7-16.6); Lymphocytes # 2.6 10^3/uL (0.8-4.8); Lymphocytes % 22.7 %; Mean Corpuscular HGB Conc 30.4 g/dL (30.0-36.0); Mean Corpuscular Hemoglobin 26.5 pg (28.0-34.0); Mean Corpuscular Volume 87.3 fl (80-94); Mean Platelet Volume 8.9 fL (7.4-10.4); Monocytes # 0.8 10^3/uL (0.2-0.9); Monocytes % 6.8 %; Neutrophils # 7.23 10^3/uL (1.8-7.7); Neutrophils % 63.4 %; Nucleated Red Blood Cells % 0 %; Platelet Count 357 10^3/cmm (130-400); Red Blood Count 5.05 10^6/uL (4.1-5.3); Red Cell Distribution Width 16.5 % (12.1-15.1); White Blood Count 11.4 10^3/uL (4.0-10.0)
[2023-01-01 23:56] VITALS: PULSE 84; RESP 25; O2SAT 94
[2023-01-02] VITALS (21 sets, daily range): BP systolic 100–152; BP diastolic 52–78; PULSE 66–89; RESP 15–24; TEMP 36.4–36.9; O2SAT 66–94
[2023-01-02] MEDS: ipratropium 0.5 mg/2.5 mL Neb INHALATION (00:01)
[2023-01-02] MEDS: albuterol 2.5 mg/3 mL Neb 5 MG INHALATION (00:01)
[2023-01-02 00:09] LABS: Troponin(5th) Baseline 59 ng/L (0-15)
[2023-01-02 00:12] LABS: ABG PCO2 44.5 mmHg (35-45); ABG PH Result 7.42 (7.35-7.45); Arterial Blood Gas Hematocrit 38.8 % (42-52); Base Excess ABG 3.8 mmol/L (-2.0-2.0); Blood Gas Allen Test Pos; Blood Gas Sample Type Arterial; HCO3 ABG 28.9 mmol/L (22-26); PO2 ABG 65.8 mmHg (80.0-100.0)
[2023-01-02 00:14] LABS: Blood Gas Sample Site Radial, left; Oxygen Device NC
[2023-01-02 00:19] LABS: Alanine Aminotransferase 16 U/L (0-41); Alkaline Phosphatase 106 U/L (40-130); Anion Gap 15.9 (5-19); Aspartate Amino Transferase 21 U/L (0-40); Blood Urea Nitrogen 21 mg/dL (8-23); Calcium 9.7 mg/dL (8.5-10.5); Carbon Dioxide 28 mmol/L (22-29); Chloride 100 mmol/L (98-107); Globulin 3.9 g/dL (1.3-4.6); Glucose 57 mg/dL (65-115); NT Pro B Type Natriuretic Pept 132 pg/mL (0-125); Osmolality Calculated 291 mOsm/kg (285-295); Potassium 3.9 mmol/L (3.5-5.1); Sodium 140 mmol/L (136-145); Total Bilirubin 0.6 mg/dL (0.15-1.2); Total Protein 7.9 g/dL (6.6-8.7)
[2023-01-02] MEDS: albuterol 2.5 mg/3 mL Neb INHALATION (01:00)
--- NOTE | 2023-01-02 01:03 | PC.NURSE ---
Attempted report @ 0102, was told nurse is on lunch and will return call for report.
--- NOTE | 2023-01-02 01:52 | PM.HP ---
Providers/Chief Complaint Admitting Physician: Yohan Fish MD Primary Care Provider: GRAHAM Mari Chief Complaint: SOB\O2 Stats Low History of Present Illness Stew Gradner is a 72 year old male with a past medical history of COPD, smoker, recent diagnosis of pulmonary embolism, placed on Eliquis who presents [facility] due to increased shortness of breath, patient tells me that recently the last 3 days she has felt increasingly short of breath, increasing wheeze, nonproductive cough, no fevers, chills, no hemoptysis, no calf pain, no calf swelling, a month ago he was diagnosed with pneumonia placed on antibiotics and steroids, denies any chest pain, no palpitations, no lower extremity edema Review of Systems Const: Denies: fever(s) Eyes: Denies: change in vision Card: Denies: chest pain Resp: Reports: dyspnea and non-productive cough GI: Denies: abdominal pain : Denies: flank pain or difficulty urinating Musc: Denies: back pain Neuro: Denies: headache(s) Medications/Allergies Home Medications Medication Instructions Recorded Confirmed Last Taken Type albuterol sulfate 2.5 mg/3 mL 2.5 mg inhalation DAILY 11/04/19 07/10/22 03/20/22 History (0.083 %) solution for nebulization albuterol sulfate 90 mcg/actuation 2 puff inhalation PRN PRN 11/04/19 07/10/22 03/20/22 History aerosol inhaler (Ventolin HFA) Shortness Of Breath aspirin 81 mg tablet,delayed 81 mg PO DAILY 11/04/19 07/10/22 03/19/22 History release multivitamin (Multiple Vitamins 1 tab PO DAILY 11/04/19 07/10/22 03/20/22 History tablet) omeprazole 40 mg capsule,delayed 40 mg PO DAILY 11/04/19 07/10/22 03/20/22 History release dextromethorphan HBr 10 mg/5 mL 10 mg (5 mL) PO Q6H PRN cough #118 11/05/19 07/10/22 03/20/22 Rx oral liquid mL ascorbic acid (vitamin C) 500 mg 500 mg PO DAILY 12/15/19 07/10/22 03/20/22 History capsule,extended release budesonide 0.5 mg/2 mL suspension 0.5 mg (2 mL) inhalation BID 30 04/19/21 07/10/22 03/20/22 Rx for nebulization (Pulmicort) days #120 mL ipratropium 0.5 mg-albuterol 3 mg See Rx Instructions .Route 04/19/21 07/10/22 03/20/22 Rx (2.5 mg base)/3 mL nebulization .COMPLEX #360 mL soln fluticasone propionate 50 1 spray intranasal Q12H 30 days 09/12/21 07/10/22 03/20/22 Rx mcg/actuation nasal #48 grams spray,suspension (Flonase Allergy Relief) azelastine 137 mcg (0.1 %) nasal 1 spray intranasal BID 30 days #30 01/05/22 07/10/22 03/20/22 Rx spray aerosol mL amlodipine 2.5 mg tablet 2.5 mg PO DAILY 01/10/22 07/10/22 03/20/22 History lisinopril 40 mg tablet 60 mg PO DAILY 01/10/22 07/10/22 03/20/22 History rosuvastatin 20 mg tablet 20 mg PO DAILY 01/10/22 07/10/22 03/20/22 History formoterol fumarate 20 mcg/2 mL 2 ml inhalation BID #120 mL 07/10/22 07/10/22 Unknown Rx solution for nebulization revefenacin 175 mcg/3 mL solution 175 mcg (3 mL) inhalation DAILY 07/10/22 07/10/22 Unknown Rx for nebulization #90 mL Allergies Allergy/AdvReac Type Severity Reaction Status Date / Time insect venom Allergy Severe ALGY-Anaphy Verified 07/10/22 11:24 laxis Tetanus Vaccines and Toxoid Allergy ALGY-Anaphy Verified 04/03/22 09:11 laxis PFSH Acute PFSH: Medical History COPD (chronic obstructive pulmonary disease) DVT (deep venous thrombosis) Hyperlipidemia Hypertension Surgical History H/O spinal fusion History of cholecystectomy History of colonoscopy History of umbilical hernia repair Family History Father CAD (coronary artery disease) Mother CAD (coronary artery disease) Diabetes Parkinsons disease Other Autoimmune disease Social History Smoking and tobacco status: current every day smoker (2 cigar cigarrettes per day) cigars Cigars smoked per week: 14 Years smoked cigars: 10 Second hand smoke exposure: Yes Smoking risk assessment/counseling performed?: Yes Alcohol intake: never Counseling given: No Substance/Drug Use: never Counseling given: No Lives independently: Yes Household members: spouse Marital status: 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 Do you think of yourself as: Straight/Heterosexual Current gender identity: Male Vitals/I&O/Wt Last Vital Signs Temp 97.6 F 01/02/23 01:25 Pulse 80 01/02/23 01:25 Resp 17 01/02/23 01:25 BP 152/78 01/02/23 01:25 Pulse Ox 91 01/02/23 01:25 O2 Del Method Nasal Cannula 01/02/23 01:49 O2 Flow Rate 4 01/02/23 01:01 Weight last 48 hrs Weight 75.75 kg Weight 75.75 kg Physical Exam Const: COMMON NORMALS: no acute distress and patient oriented x3 HENMT: COMMON NORMALS: normocephalic HEAD & SCALP: normocephalic Eye: COMMON NORMALS: Equal, round and reactive pupils present and EOMs intact bilaterally Neck/C-Spine: COMMON NORMALS: no JVD Lymph: LYMPHATIC: no lymphadenopathy noted Resp: COMMON NORMALS: normal respiratory effort, No retractions, No use of accessory muscles and clear to auscultation bilaterally AUSCULTATION: wheezes Cardio: COMMON NORMALS: no JVD, regular rate, regular rhythm, S1 normal heart sound present and S2 normal heart sound present RATE: regular rate RHYTHM: regular rhythm HEART SOUNDS: S1 normal heart sound present and S2 normal heart sound present GI: COMMON NORMALS: Normal to inspection, nondistended, normoactive bowel sounds present, Soft to palpation, non-tender, no masses and no bruits PALPATION: Yes Soft to palpation and Yes No hepatosplenomegaly present Extremity: COMMON NORMALS: no clubbing, cyanosis or edema, no calf tenderness and no pedal edema Neuro: COMMON NORMALS: patient oriented x3, CN's II-XII intact bilaterally, moves all extremities and no focal motor deficits Psych: COMMON NORMALS: mental status grossly normal Data 01/01/23 23:45 01/01/23 23:45 A&P Assessment and plan (1) Acute respiratory failure with hypoxemia: (2) COPD exacerbation: (3) NSTEMI (non-ST elevated myocardial infarction): Plan COPD exacerbation -Solu-Medrol -DuoNeb -Budesonide -Doxycycline -Oxygen therapy -Sputum culture, respiratory viral panel -Monitor respiratory status closely -Full code -Lovenox for DVT prophylaxis NSTEMI -Likely type II NSTEMI, from supply demand ischemia -From respiratory failure -Serial EKGs, serial troponins telemetry monitoring Recent diagnosis of pulmonary embolism 1.? Focal, nonocclusive soft tissue filling defect in the proximal RIGHT main pulmonary artery. Differential includes artifact versus soft forming emboli. There is no RIGHT heart strain or secondary findings of pulmonary emboli. No additional filling defects. 2.? No RIGHT heart strain. 3.? LVH. Continue Eliquis We will order cardiac echo Attestations Medical Necessity Statement*: Patient requires hospitalization, inpatient, greater than 2 midnights, for COPD exacerbation Diagnoses Acute respiratory failure with hypoxemia J96.01 COPD exacerbation J44.1 NSTEMI (non-ST elevated myocardial infarction) I21.4
--- NOTE | 2023-01-02 01:58 | USCV_ITS ---
Stew Gardner Age: 72 Gender: M : 1950 Exam Date: 01/02/2023 02:20 Ordering Phys: Yohan Fish MD Technologist: KELLI Exam Location: [facility] [place] Indication: SOB COPD, long-term smoker continues smoking. 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 No history of cardiac intervention per pt. BP: 152 / 78 HR: 79 Rhythm: Sinus Technical Quality: Adequate MEASUREMENTS (Male / Female) Normal Values 2D ECHO LV Diastolic Diameter PLAX 4.1 cm 4.2 - 5.9 / 3.9 - 5.3 cm LV Systolic Diameter PLAX 2.5 cm IVS Diastolic Thickness 1.3 cm 0.6 - 1.0 / 0.6 - 0.9 cm IVS Systolic Thickness 1.9 cm LVPW Diastolic Thickness 1.3 cm 0.6 - 1.0 / 0.6 - 0.9 cm LVPW Systolic Thickness 1.5 cm LVOT Diameter 2.0 cm LV Ejection Fraction 2D Teich 68.6 % LV Ejection Fraction MOD 2C 66.7 % LV Ejection Fraction 2C AL 66.6 % LA Diameter 3.5 cm LA Width 3.2 cm LA Height 4.0 cm RA Width 2.7 cm RA Height 4.0 cm Aorta at Sinotubular Diameter 3.2 cm IVC Diameter 1.7 cm M-MODE Aortic Annulus Diameter 3.5 cm LA Ao Ratio MM 1.0 MV E Point Septal Separation 0.5 cm DOPPLER AV Peak Velocity 150.0 cm/s LVOT Peak Velocity 98.0 cm/s AV Area Cont Eq vti 2.1 cm squared AV Area Cont Eq pk 2.1 cm squared MV Area PHT 4.5 cm squared Mitral E to A Ratio 0.9 MV E' Velocity 50.0 cm/s Mitral E to MV E' Ratio 6.7 Mitral E to LV E' Lateral Ratio 5.3 Mitral E to LV E' Septal Ratio 9.3 TR Peak Velocity 249.0 cm/s TR Peak Gradient 24.8 mmHg TV Peak E Velocity 56.0 cm/s Right Atrial Pressure 5.0 mmHg Pulmonary Artery Systolic Pressu 29.8 mmHg PV Peak Velocity 129.0 cm/s RV Acceleration Time 0.1 s RV Ejection Time 0.4 s RV AcT/ET 0.3 FINDINGS Left Ventricle Normal left ventricular size and systolic function, EF 71 %. No regional wall motion abnormalities. Right Ventricle Normal right ventricular size and systolic function. Right Atrium The right atrium is normal in size. Left Atrium The left atrium is normal in size. Mitral Valve No gross abnormalities noted Aortic Valve No gross abnormalities noted Tricuspid Valve Trace to mild tricuspid valve regurgitation. Pulmonic Valve No gross abnormalities noted Pericardium Normal pericardium without effusion. Aorta Normal ascending aorta dimension. IVC Normal inferior vena cava. CONCLUSIONS Normal left ventricular size and systolic function, EF 71 %. No regional wall motion abnormalities. Trace to mild tricuspid valve regurgitation. Normal cardiac chamber sizes. There is no pericardial effusion. There are no intracardiac masses. Compared to the study from 10/18/2021, there may not be a significant change Dr Hector Headley MD FACC (Electronically Signed) Final Date: 03 Jan 2023 01:55 S
--- NOTE | 2023-01-02 02:12 | ECG_ITS ---
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 Measurements Intervals [place] Rate: 77 P: 70 NH: 160 QRS: -50 QRSD: 108 T: 58 QT: 401 QTc: 456 Interpretive Statements SINUS RHYTHM LEFT ANTERIOR FASCICULAR BLOCK [QRS AXIS <= -45, QR IN I, RS IN II] Compared to ECG 01/02/2023 00:24:46 Left anterior fascicular block now present Intraventricular conduction delay no longer present Electronically Signed On 01-03-2023 0:28:21 CDT by Hector Headley M.D. [id number]
[2023-01-02] MEDS: doxycycline 100 MG in sodium chloride 0.9% (plus) 100 ML IV (02:16)
[2023-01-02 02:24] LABS: Chol HDL Ratio 2.72 mg/dL (1.0-5.00); Cholesterol 117 mg/dL (0-200); HDL Cholesterol 43 mg/dL (60-100); LDL Cholesterol Calculated 52 mg/dL (50-129); LDL HDL Ratio 1.21 RATIO (0.00-3.22); Triglycerides 109 mg/dL (0-150)
[2023-01-02 02:30] LABS: Troponin 5 2HR 54.58 ng/L (0-15)
[2023-01-02 02:34] LABS: Troponin 5 2HR Delta -4.42 ABS# (0-10)
[2023-01-02 02:43] LABS: Estmated Average Glucose 120; Hemoglobin A1C 5.8 % (4.0-6.0)
[2023-01-02 03:58] LABS: Adenovirus Not Detected (NOT DETECT); Chlamydia Pneumoniae Not Detected (NOT DETECT); Coronavirus 229E,HKU1,NL63,OC4 Not Detected (NOT DETECT); Human Metapneumovirus Not Detected (NOT DETECT); Human Rhinovirus/Enterovirus Not Detected (NOT DETECT); Influenza A Not Detected (NOT DETECT); Influenza A H1 Not Detected (NOT DETECT); Influenza A H1-2009 Not Detected (NOT DETECT); Influenza A H3 Not Detected (NOT DETECT); Influenza B Not Detected (NOT DETECT); Mycoplasma Pneumoniae Not Detected (NOT DETECT); Parainfluenza Virus Type 1 Not Detected (NOT DETECT); Parainfluenza Virus Type 2 Not Detected (NOT DETECT); Parainfluenza Virus Type 3 Not Detected (NOT DETECT); Parainfluenza Virus Type 4 Not Detected (NOT DETECT); Respiratory Syncytial Virus A Not Detected (NOT DETECT); Respiratory Syncytial Virus B Not Detected (NOT DETECT); SARS-COV-2 Not Detected (NOT DETECT)
[2023-01-02] MEDS: ipratropium-albuterol 3 mL Neb INHALATION ×6 (04:32→21:50)
[2023-01-02 04:52] LABS: Add Urine Microscopic? NO; Charge for UA Resulting for Rev
[2023-01-02 05:24] LABS: Bilirubin Urine Neg (Negative); Blood Urine Neg (Negative); Glucose Urine UA Norm (Normal); Ketones Urine Negative (Negative); Leukocyte Esterase Urine Negative (Negative); Nitrate Urine Negative (Negative); Protein Urine Neg (Negative); Urine Appearance Clear (CLEAR); Urine Color Yellow (Yellow); Urobilinogen Urine Neg (Negative); pH Urine 5 (5-7)
--- NOTE | 2023-01-02 05:40 | ECG_ITS ---
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 Measurements Intervals [place] Rate: 73 P: 130 GA: 164 QRS: -22 QRSD: 99 T: 128 QT: 406 QTc: 448 Interpretive Statements SINUS RHYTHM SEPTAL MYOCARDIAL INFARCTION , PROBABLY OLD [40+ ms Q WAVE IN V1/V2] Compared to ECG 01/02/2023 02:12:04 Myocardial infarct finding now present Left anterior fascicular block no longer present Electronically Signed On 01-03-2023 0:29:05 CDT by Hector Headley M.D. [id number]
[2023-01-02 06:21] LABS: Troponin 5 6HR 42.61 ng/L (0-15)
[2023-01-02] MEDS: budesonide 0.5 mg/2 mL Neb INHALATION ×2 (07:20→21:49)
--- NOTE | 2023-01-02 08:56 | PC.PHAR ---
pts daughter seth [phone] verified pts medications-states the pt is taking eliquis 10mg bid for 7 days then 5mg bid for 6 months states the pt should finish his 10mg bid dose on 01/04/23-pts daughter states she is unsure if the pt is taking amlodipine 5mg daily filled 12/19/22 90d/s ext also shows 2.5mg daily filled 08/14/22 90d/s-pts daughter states the pt never got the pulmicort suspension-performist solution-or the yupelri solution states wasnt covered by the pts insurance-notes are made in the pharmacy comments
[2023-01-02] MEDS: pantoprazole DR 40 mg Tablet PO (10:39)
[2023-01-02] MEDS: atorvastatin 40 mg Tablet 80 MG PO (10:39)
[2023-01-02] MEDS: amlodipine 5 mg Tablet 2.5 MG PO (10:39)
[2023-01-02] MEDS: lisinopril 20 mg Tablet 40 MG PO (10:40)
[2023-01-02] MEDS: aspirin 81 mg EC Tablet PO (10:40)
[2023-01-02] MEDS: apixaban 5 mg Tablet 10 MG PO ×2 (10:41→20:15)
--- NOTE | 2023-01-02 12:07 | PM.MISC ---
Miscellaneous Note Note: Patient was seen and examined Still extremely wheezy Currently on 4 L nasal cannula Plan is to continue budesonide possible does not have IV steroids for today I will keep patient on inhaled steroids continue DuoNeb If clinically stable he might be able to go home by tomorrow
[2023-01-03] VITALS (7 sets, daily range): BP systolic 114–128; BP diastolic 62–66; PULSE 71–80; RESP 16–18; TEMP 36.4–36.6; O2SAT 90–94
[2023-01-03 05:31] LABS: Basophils % 0.4 %; Hemoglobin 11.5 g/dL (11.7-16.6); Lymphocytes % 8.7 %; Mean Corpuscular HGB Conc 30.3 g/dL (30.0-36.0); Mean Corpuscular Hemoglobin 26.6 pg (28.0-34.0); Mean Platelet Volume 9.1 fL (7.4-10.4); Monocytes # 0.2 10^3/uL (0.2-0.9); Monocytes % 1.6 %; Neutrophils # 10.02 10^3/uL (1.8-7.7); Neutrophils % 88.9 %; Nucleated Red Blood Cells % 0 %; Platelet Count 332 10^3/cmm (130-400); Red Blood Count 4.32 10^6/uL (4.1-5.3); Red Cell Distribution Width 16.7 % (12.1-15.1); White Blood Count 11.3 10^3/uL (4.0-10.0)
[2023-01-03] MEDS: levoFLOXacin 750 mg Tablet PO (05:50)
[2023-01-03 05:53] LABS: Anion Gap 15.7 (5-19); Blood Urea Nitrogen 24 mg/dL (8-23); Calcium 8.9 mg/dL (8.5-10.5); Carbon Dioxide 25 mmol/L (22-29); Chloride 102 mmol/L (98-107); Glucose 219 mg/dL (65-115); Magnesium 2.2 mg/dL (1.7-2.3); Osmolality Calculated 297 mOsm/kg (285-295); Phosphorus 3.2 mg/dL (2.5-4.5); Potassium 4.7 mmol/L (3.5-5.1); Sodium 138 mmol/L (136-145)
[2023-01-03] MEDS: ipratropium-albuterol 3 mL Neb INHALATION ×2 (07:49→11:49)
[2023-01-03] MEDS: budesonide 0.5 mg/2 mL Neb INHALATION (07:49)
[2023-01-03] MEDS: amlodipine 5 mg Tablet 2.5 MG PO (09:38)
[2023-01-03] MEDS: atorvastatin 40 mg Tablet 80 MG PO (09:39)
[2023-01-03] MEDS: aspirin 81 mg EC Tablet PO (09:39)
[2023-01-03] MEDS: lisinopril 20 mg Tablet 40 MG PO (09:39)
[2023-01-03] MEDS: pantoprazole DR 40 mg Tablet PO (09:39)
[2023-01-03] MEDS: apixaban 5 mg Tablet 10 MG PO (09:42)
--- NOTE | 2023-01-03 11:24 | P.DS_ITS ---
Discharge Providers Date of Admission: 01/02/23 01:01 Date of Discharge: January 03, 2023 Attending Provider at Admission: Yohan Fish MD Attending Provider at Discharge: Eliezer Chowdhury MD Primary Care Provider: GRAHAM Mari Diagnoses at Discharge Discharge Diagnosis (1) Acute respiratory failure with hypoxemia: Status: Acute (2) COPD exacerbation: Status: Acute (3) NSTEMI (non-ST elevated myocardial infarction): Status: Acute Reason for Visit Reason for Visit: SOB\O2 Stats Low Hospital Course Hospital Course 72-year male, recently had diagnosis of PE, 2 L oxygen. COPD presented to the hospital with worsening of shortness of breath, echo was done at the time of admission because he recently had diagnosis of PE, echo is unremarkable no right heart strain, for his wheezing steroids were used, wheezing improved significantly, patient remained afebrile, he received antibiotics for pneumonia, did not call qualify for oxygen more than his baseline, on admission he was quiring 4 L we gradually wean him down to 2 L at the time of discharge, he will get albuterol inhaler, please note patient uses 2 L of oxygen on as-needed basis, he does have oxygen concentrator and portable oxygen via HOME COPD medications are not optimized I will add Spiriva and Dulera along albuterol Physical Exam Narrative: Awake and alert Wheezing improved Currently on room air GCS 15 Euvolemic Pleasant and cooperative Discharge Data Studies Completed and Pending Completed Studies During Hospitalization Category Date Time Status XR chest 1V portable [id number] Stat Exams 01/01/23 23:34 Completed CV. echo complete* [id number] Routine Ultrasound 01/02/23 01:58 Completed Pending at discharge Category Date Time Status Blood Culture Routine Lab 01/02/23 05:43 Results Sputum Culture and Gram Stain Stat Lab 01/02/23 04:10 Results Radiology Impressions Chest X-Ray 01/01/23 23:34 IMPRESSION: No acute findings. Laboratory Results WBC 11.3 10^3/uL (4.0-10.0) H 01/03/23 04:53 RBC 4.32 10^6/uL (4.1-5.3) 01/03/23 04:53 Hgb 11.5 g/dL (11.7-16.6) L 01/03/23 04:53 Hct 38.0 % (42.0-52.0) L 01/03/23 04:53 MCV 88.0 fl (80-94) 01/03/23 04:53 MCH 26.6 pg (28.0-34.0) L 01/03/23 04:53 MCHC 30.3 g/dL (30.0-36.0) 01/03/23 04:53 RDW 16.7 % (12.1-15.1) H 01/03/23 04:53 Plt Count 332 10^3/cmm (130-400) 01/03/23 04:53 MPV 9.1 fL (7.4-10.4) 01/03/23 04:53 Neut % (Auto) 88.9 % 01/03/23 04:53 Lymph % (Auto) 8.7 % 01/03/23 04:53 Mckinley % (Auto) 1.6 % 01/03/23 04:53 Eos % (Auto) 0.0 % 01/03/23 04:53 Baso % (Auto) 0.4 % 01/03/23 04:53 Neut # (Auto) 10.02 10^3/uL (1.8-7.7) H 01/03/23 04:53 Lymph # (Auto) 1.0 10^3/uL (0.8-4.8) 01/03/23 04:53 Mckinley # (Auto) 0.2 10^3/uL (0.2-0.9) 01/03/23 04:53 Eos # (Auto) 0.0 10^3/uL (0.0-0.8) 01/03/23 04:53 Baso # (Auto) 0.0 10^3/uL (0.0-0.1) 01/03/23 04:53 Nucleated RBC % (auto) 0 % 01/03/23 04:53 Nucleated RBCs # 0.0 /100WBC 01/03/23 04:53 Specimen Type Arterial 01/01/23 00:02 Sample Site Radial, left 01/01/23 00:02 ABG pH 7.42 (7.35-7.45) 01/01/23 00:02 ABG pCO2 44.5 mmHg (35-45) 01/01/23 00:02 ABG pO2 65.8 mmHg (80.0-100.0) L 01/01/23 00:02 ABG HCO3 28.9 mmol/L (22-26) H 01/01/23 00:02 ABG Base Excess 3.8 mmol/L (-2.0-2.0) H 01/01/23 00:02 Stan Test Pos 01/01/23 00:02 Hematocrit 38.8 % (42-52) L 01/01/23 00:02 O2 Delivery Device Nc 01/01/23 00:02 O2 Liters/Min 4.0 % 01/01/23 00:02 Link Trainer Teacher ID [email or web address] 01/01/23 00:02 Sodium 138 mmol/L (136-145) 01/03/23 04:53 Potassium 4.7 mmol/L (3.5-5.1) 01/03/23 04:53 Chloride 102 mmol/L (98-107) 01/03/23 04:53 Carbon Dioxide 25 mmol/L (22-29) 01/03/23 04:53 Anion Gap 15.7 (5-19) 01/03/23 04:53 BUN 24 mg/dL (8-23) H 01/03/23 04:53 Creatinine 0.8 mg/dL (0.7-1.2) 01/03/23 04:53 GFR Calculation Not Reportable 01/03/23 04:53 Glucose 219 mg/dL (65-115) H 01/03/23 04:53 Estimat Average Glucose 120 01/01/23 23:45 Hemoglobin A1c 5.8 % (4.0-6.0) 01/01/23 23:45 Calculated Osmolality 297 mOsm/kg (285-295) H 01/03/23 04:53 Calcium 8.9 mg/dL (8.5-10.5) 01/03/23 04:53 Phosphorus 3.2 mg/dL (2.5-4.5) 01/03/23 04:53 Magnesium 2.2 mg/dL (1.7-2.3) 01/03/23 04:53 Total Bilirubin 0.6 mg/dL (0.15-1.2) 01/01/23 23:45 AST 21 U/L (0-40) 01/01/23 23:45 ALT 16 U/L (0-41) 01/01/23 23:45 Alkaline Phosphatase 106 U/L (40-130) 01/01/23 23:45 Troponin T Baseline 59 ng/L (0-15) H 01/01/23 23:45 Troponin T 120 Minute 54.58 ng/L (0-15) H 01/02/23 01:35 Delta Troponin T -4.42 ABS# (0-10) L 01/02/23 01:35 Troponin T Hi Sens 6Hr 42.61 ng/L (0-15) H 01/02/23 05:43 Troponin T Hi Sens 6Hr Delta -16.39 ng/L (0-12) L 01/02/23 05:43 NT-Pro-B Natriuret Pep 132 pg/mL (0-125) H 01/01/23 23:45 Total Protein 7.9 g/dL (6.6-8.7) 01/01/23 23:45 Albumin 4.0 g/dL (3.5-5.2) 01/01/23 23:45 Globulin 3.9 g/dL (1.3-4.6) 01/01/23 23:45 Triglycerides 109 mg/dL (0-150) 01/01/23 23:45 Cholesterol 117 mg/dL (0-200) 01/01/23 23:45 LDL Cholesterol, Calc 52 mg/dL (50-129) 01/01/23 23:45 HDL Cholesterol 43 mg/dL (60-100) L 01/01/23 23:45 LDL/HDL Ratio 1.21 RATIO (0.00-3.22) 01/01/23 23:45 Cholesterol/HDL Ratio 2.72 mg/dL (1.0-5.00) 01/01/23 23:45 Urine Color Yellow (Yellow) 01/02/23 04:10 Urine Appearance Clear (CLEAR) 01/02/23 04:10 Urine pH 5 (5-7) 01/02/23 04:10 Ur Specific Ida 1.020 (1.005-1.030) 01/02/23 04:10 Urine Protein Neg (Negative) 01/02/23 04:10 Urine Glucose (UA) Norm (Normal) 01/02/23 04:10 Urine Ketones Negative (Negative) 01/02/23 04:10 Urine Blood Neg (Negative) 01/02/23 04:10 Urine Nitrate Negative (Negative) 01/02/23 04:10 Urine Bilirubin Neg (Negative) 01/02/23 04:10 Urine Urobilinogen Neg mg/dL (Negative) 01/02/23 04:10 Ur Leukocyte Esterase Negative (Negative) 01/02/23 04:10 Nasal Influ A H1 2009 PCR Not detected (NOT DETECT) 01/02/23 02:05 Adenovirus (PCR) Not detected (NOT DETECT) 01/02/23 02:05 C. pneumoniae DNA (PCR) Not detected (NOT DETECT) 01/02/23 02:05 Coronavirus 229E (PCR) Not detected (NOT DETECT) 01/02/23 02:05 Human Metapneumovir PCR Not detected (NOT DETECT) 01/02/23 02:05 Influenza A (H1) PCR Not detected (NOT DETECT) 01/02/23 02:05 Influenza A (H3) PCR Not detected (NOT DETECT) 01/02/23 02:05 Influenza Type A (PCR) Not detected (NOT DETECT) 01/02/23 02:05 Influenza Type B (PCR) Not detected (NOT DETECT) 01/02/23 02:05 M. pneumoniae (PCR) Not detected (NOT DETECT) 01/02/23 02:05 Parainfluenza 1 (PCR) Not detected (NOT DETECT) 01/02/23 02:05 Parainfluenza 2 (PCR) Not detected (NOT DETECT) 01/02/23 02:05 Parainfluenza 3 (PCR) Not detected (NOT DETECT) 01/02/23 02:05 Parainfluenza 4 (PCR) Not detected (NOT DETECT) 01/02/23 02:05 RSV Type A (PCR) Not detected (NOT DETECT) 01/02/23 02:05 RSV Type B (PCR) Not detected (NOT DETECT) 01/02/23 02:05 Entero/Rhino (PCR) Not detected (NOT DETECT) 01/02/23 02:05 SARS-CoV-2 (PCR) Not detected (NOT DETECT) 01/02/23 02:05 Vitals Last Vital Signs Temp 97.5 F L 01/03/23 07:51 Pulse 73 01/03/23 07:55 Resp 16 01/03/23 07:55 BP 128/66 01/03/23 07:51 Pulse Ox 90 01/03/23 10:20 O2 Del Method Nasal Cannula 01/03/23 07:55 O2 Flow Rate 2 01/03/23 07:55 Discharge Plan Discharge Patient Disposition: Home Condition: Stable Prescriptions: New doxycycline hyclate 100 mg tablet 100 mg PO Q12H 3 Days Qty: 6 0RF Spiriva Respimat 1.25 mcg/actuation mist 2 inh inhalation DAILY Qty: 4 3RF methylprednisolone [Medrol (Sameer)] 4 mg tablets,dose pack See Rx Instructions .ROUTE .COMPLEX Qty: 21 0RF Rx Instructions: orally per package directions Dulera 50-5 mcg/actuation HFA aerosol inhaler 2 puff inhalation BID Qty: 13 4RF Continued rosuvastatin 20 mg tablet 20 mg PO DAILY albuterol sulfate 2.5 mg /3 mL (0.083 %) solution for nebulization 2.5 mg inhalation BID PRN (Reason: Shortness Of Breath) omeprazole 40 mg capsule,delayed release(DR/EC) 40 mg PO DAILY aspirin 81 mg Tablet,Delayed Release (Dr/Ec) 81 mg PO DAILY albuterol sulfate [Ventolin HFA] 90 mcg/actuation HFA aerosol inhaler 2 puff INHALATION Q4H PRN (Reason: Shortness Of Breath) lisinopril 40 mg tablet 60 mg PO DAILY multivitamin Tablet 1 tab PO DAILY ipratropium-albuterol 0.5 mg-3 mg(2.5 mg base)/3 mL Solution For Nebulization 3 ml INHALATION QID PRN (Reason: Shortness Of Breath) zinc acetate 50 mg (zinc) Capsule 50 mg PO DAILY PRN (Reason: unknown) Fish Oil Concentrate 1,000 mg Capsule 1,000 mg PO DAILY sildenafil 50 mg tablet 50 mg PO PRN PRN (Reason: Erectile Dysfunction) glyburide 5 mg tablet 5 mg PO DAILY Vitamin B-12 1,000 mcg Tablet 1,000 mcg PO DAILY amlodipine 5 mg tablet 5 mg PO DAILY Vitamin C 500 mg Tablet 500 mg PO DAILY niacin 500 mg Tablet 500 mg PO DAILY MSM 1,000 mg Tablet 1,000 mg PO DAILY Vitamin D3 25 mcg (1,000 unit) Tablet 25 mcg PO DAILY PRN (Reason: unknown) potassium gluconate 595 mg (99 mg) Tablet 595 mg PO DAILY Eliquis 5 mg Tablet See Rx Instructions .ROUTE .COMPLEX Rx Instructions: 10mg po bid for 7 days then 5mg po bid for 6 months azelastine 137 mcg (0.1 %) aerosol,spray 1 spray intranasal BID PRN (Reason: unknown) Rx Instructions: administer into each nostril Discharge Orders: Discharge Order (Routine); Ordered 01/03/23 Ordered By: Eliezer Chowdhury Referrals: Gabriela Szymanski FNP [Primary Care Provider] - 01/10/23 9:00 am Discharge Diet: Cardiac Discharge Activity: Increase activity as tolerated Patient Instructions: Opioid Safety Discharge Attestations Time Spent in Discharge Care*: greater than 30 min Quality Metrics Clinical Quality Measures [ No reported AMI, CVA or VTE this stay] Coding Level of Care Code Acute Code for [facility] Diagnoses Acute respiratory failure with hypoxemia J96.01 COPD exacerbation J44.1 NSTEMI (non-ST elevated myocardial infarction) I21.4
== END 2023-01-03 12:10 | disposition home or self-care (01) | DRG 190 ==
LOC: ER 01-02 00:52 → MEDSURG 01-02 01:01
PROVIDERS: Admitting Provider Family Medicine; Emergency Provider Emergency Medicine; PCP Nurse Practitioner Family; Visit Provider Internal Medicine
DX: J44.1 Chronic obstructive pulmonary disease with (acute) exacerbation (principal); I21.A1 Myocardial infarction type 2; J96.01 Acute respiratory failure with hypoxia; E78.5 Hyperlipidemia, unspecified; I10 Essential (primary) hypertension; F17.210 Nicotine dependence, cigarettes, uncomplicated; F17.290 Nicotine dependence, other tobacco product, uncomplicated; Z86.718 Personal history of other venous thrombosis and embolism; Z86.711 Personal history of pulmonary embolism; Z79.01 Long term (current) use of anticoagulants
CPT/HCPCS: 36600; 71045; 80048; 80053; 80061; 81003; 82803; 83036; 83735; 83880; 84100; 84484; 85025; 87040; 87070; 87205; 87486; 87581; 87633; 93005; 93306; 94640; 94664; 94760; 96365; 96375; 99285; J2930; J3490; J7613; J7626; J7644

== ENCOUNTER → 2023-01-08 09:29 | Outpatient (BNVA) | payer MEDICARE, SELFPAY | PROVIDERS: PCP Nurse Practitioner Family; Visit Provider Internal Medicine Pulmonary Disease | DX: J44.9 Chronic obstructive pulmonary disease, unspecified (principal); J30.9 Allergic rhinitis, unspecified; R70.0 Elevated erythrocyte sedimentation rate; I26.99 Other pulmonary embolism without acute cor pulmonale; F17.290 Nicotine dependence, other tobacco product, uncomplicated; Z79.01 Long term (current) use of anticoagulants | CPT/HCPCS: 99214 ==

== ENCOUNTER 2023-01-28 22:29 | Observation (INO) | payer MEDICARE, SELFPAY ==
--- NOTE | 2023-01-28 22:46 | W.ED.CHESTPA ---
HPI - Chest Pain General: Chief Complaint: Shortness of Breath/Dyspnea Stated Complaint: Chest Pains Time Seen by Provider: 01/28/23 22:46 History of Present Illness: Mr. Gardner is a 72-year-old gentleman with history of COPD on intermittent home oxygen use, history of pulmonary embolism on anticoagulation presenting to the emergency department for shortness of breath. He also endorses chest pain. He notes worsening symptoms starting today, he has been outside doing a the bailey. He has cough and tightness across his chest. Intensity of symptoms is moderate. Mildly improved by oxygen. No other specific changes in health, exacerbating, or alleviating factors identified. Onset (ago): hour(s) Timing of current episode: constant Pain location: substernal Severity: moderate Quality: tightness Exacerbating factors: exertion Associated symptoms: Reports dyspnea and other Review of Systems General: Reports: 10 or more systems reviewed and unremarkable except in HPI and below Resp: Reports: dyspnea PFSH ED PFSH: Medical History COPD (chronic obstructive pulmonary disease) DVT (deep venous thrombosis) Hyperlipidemia Hypertension Surgical History H/O spinal fusion History of cholecystectomy History of colonoscopy History of umbilical hernia repair Family History Father CAD (coronary artery disease) Mother CAD (coronary artery disease) Diabetes Parkinsons disease Other Autoimmune disease Social History Smoking and tobacco status: current every day smoker (2 cigar cigarrettes per day) cigars Cigars smoked per week: 14 Years smoked cigars: 10 Second hand smoke exposure: Yes Smoking risk assessment/counseling performed?: Yes Alcohol intake: never Counseling given: No Substance/Drug Use: never Counseling given: No Lives independently: Yes Household members: spouse Marital status: 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 Do you think of yourself as: Straight/Heterosexual Current gender identity: Male Physical Exam Const: COMMON NORMALS: alert GENERAL APPEARANCE: cooperative and well developed HENMT: COMMON NORMALS: normocephalic and atraumatic HEAD & SCALP: normocephalic and atraumatic Eye: COMMON NORMALS: conjunctivae normal CONJUNCTIVA: Yes conjunctivae normal SCLERA: sclerae normal Neck/C-Spine: COMMON NORMALS: supple GENERAL: Yes trachea midline Resp: EFFORT & INSPECTION: Yes tachypneic AUSCULTATION: wheezes and diminished lung sounds Cardio: COMMON NORMALS: regular rate and regular rhythm RATE: regular rate RHYTHM: regular rhythm GI: COMMON NORMALS: Soft to palpation PALPATION: Yes Soft to palpation and No Tenderness to palpation present (GI) Extremity: GENERAL: Yes normal exam except as noted and No edema Neuro: COMMON NORMALS: moves all extremities SENSORIUM/ORIENTATION: Yes alert and No Orientation impaired Psych: COMMON NORMALS: mental status grossly normal and Normal thought process present THOUGHT PROCESS: Normal thought process present Course Vital Signs: Vital signs: Vital Signs Temperature 97.2 F L 01/29/23 02:15 Pulse Rate 81 01/29/23 02:15 Respiratory Rate 18 01/29/23 02:15 Blood Pressure 156/82 01/29/23 02:15 Pulse Oximetry 92 01/29/23 02:15 Oxygen Delivery Me thod Nasal Cannula 01/29/23 01:45 Oxygen Flow Rate 2 01/29/23 01:45 MDM - Chest Pain Medical Decision Making 72-year-old gentleman with known history of COPD however no baseline oxygen requirement presented to the emergency department for shortness of breath. He notes wheezing and has been exposed to increased outdoor allergens. He also notes chest pain. Exam as above. He is nontoxic in appearance. RT treatment and steroids ordered. Twelve-lead EKG demonstrates sinus rhythm with normal axis and intervals, there is occasional PVCs, no STEMI. Labs with no leukocytosis, near recent similar normocytic anemia. Metabolic panel without acute derangement. ABG with mild hypoxemia on supplemental oxygen, compensated pH and no evidence of hypercapnia. Given recent history of pulmonary embolism and worsening symptoms including chest tightness D-dimer is appropriate and was elevated. Chest x-ray with no lobar consolidation or pneumothorax. Chest CTA without evidence of pulmonary embolism or other clear etiology of symptoms. 2-hour delta troponin is pending, initial similar to recent baseline. Viral panel is pending. Despite additional RT treatments patient continues to have wheezing and exacerbation of symptoms with mild exertion such as walking across the glover. Most likely etiology of patient's symptoms is exacerbation of COPD. The results of ED evaluation were discussed with the patient including plan for admission due to requirement for level of care not available if discharged to prevent significant worsening/deterioration. Patient agreeable with plan. Discussed with hospitalist service who was agreeable to admit patient. Medical Records I reviewed the patient's medical records. Lab Data I reviewed the patient's lab results. 01/28/23 22:55 01/28/23 22:55 Radiology Impressions Chest X-Ray 01/28/23 22:53 IMPRESSION: No acute findings. Chest CTA 01/28/23 23:53 IMPRESSION: Negative for pulmonary embolism. Laboratory Results WBC 9.5 10^3/uL (4.0-10.0) 01/28/23 22:55 RBC 4.41 10^6/uL (4.1-5.3) 01/28/23 22:55 Hgb 11.2 g/dL (11.7-16.6) L 01/28/23 22:55 Hct 38.1 % (42.0-52.0) L 01/28/23 22:55 MCV 86.4 fl (80-94) 01/28/23 22:55 MCH 25.4 pg (28.0-34.0) L 01/28/23 22:55 MCHC 29.4 g/dL (30.0-36.0) L 01/28/23 22:55 RDW 16.1 % (12.1-15.1) H 01/28/23 22:55 Plt Count 355 10^3/cmm (130-400) 01/28/23 22:55 MPV 8.9 fL (7.4-10.4) 01/28/23 22:55 Neut % (Auto) 65.7 % 01/28/23 22:55 Lymph % (Auto) 16.8 % 01/28/23 22:55 Citrus % (Auto) 6.9 % 01/28/23 22:55 Eos % (Auto) 9.4 % 01/28/23 22:55 Baso % (Auto) 1.0 % 01/28/23 22:55 Neut # (Auto) 6.26 10^3/uL (1.8-7.7) 01/28/23 22:55 Lymph # (Auto) 1.6 10^3/uL (0.8-4.8) 01/28/23 22:55 Citrus # (Auto) 0.7 10^3/uL (0.2-0.9) 01/28/23 22:55 Eos # (Auto) 0.9 10^3/uL (0.0-0.8) H 01/28/23 22:55 Baso # (Auto) 0.1 10^3/uL (0.0-0.1) 01/28/23 22:55 Nucleated RBC % (auto) 0 % 01/28/23 22:55 Nucleated RBCs # 0.0 /100WBC 01/28/23 22:55 D-Dimer >= 20.00 ug/mIFEU (0-0.59) H 01/28/23 22:55 Specimen Type Arterial 01/28/23 21:00 Sample Site Brachial, right 01/28/23 21:00 ABG pH 7.42 (7.35-7.45) 01/28/23 21:00 ABG pCO2 43.5 mmHg (35-45) 01/28/23 21:00 ABG pO2 70.5 mmHg (80.0-100.0) L 01/28/23 21:00 ABG HCO3 27.9 mmol/L (22-26) H 01/28/23 21:00 ABG Base Excess 2.9 mmol/L (-2.0-2.0) H 01/28/23 21:00 Stan Test N/a 01/28/23 21:00 Hematocrit 35.7 % (42-52) L 01/28/23 21:00 Hgb O2 Saturation 91.0 % (95-100) L 01/28/23 21:00 Carboxyhemoglobin 4.9 %THgb (0.4-20.1) 01/28/23 21:00 Methemoglobin 0.5 % (0.4-1.5) 01/28/23 21:00 Total Hemoglobin 11.7 g/dL (14-18) L 01/28/23 21:00 O2 Delivery Device Nc 01/28/23 21:00 O2 Liters/Min 2.0 % 01/28/23 21:00 FiO2 28.0 % 01/28/23 21:00 Restaurant General Manager ID Carrie 01/28/23 21:00 Sodium 139 mmol/L (136-145) 01/28/23 22:55 Potassium 4.0 mmol/L (3.5-5.1) 01/28/23 22:55 Chloride 103 mmol/L (98-107) 01/28/23 22:55 Carbon Dioxide 26 mmol/L (22-29) 01/28/23 22:55 Anion Gap 14.0 (5-19) 01/28/23 22:55 BUN 11 mg/dL (8-23) 01/28/23 22:55 Creatinine 0.8 mg/dL (0.7-1.2) 01/28/23 22:55 GFR Calculation Not Reportable 01/28/23 22:55 Glucose 65 mg/dL (65-115) 01/28/23 22:55 Calculated Osmolality 286 mOsm/kg (285-295) 01/28/23 22:55 Calcium 9.0 mg/dL (8.5-10.5) 01/28/23 22:55 Total Bilirubin 0.5 mg/dL (0.15-1.2) 01/28/23 22:55 AST 29 U/L (0-40) 01/28/23 22:55 ALT 16 U/L (0-41) 01/28/23 22:55 Alkaline Phosphatase 95 U/L (40-130) 01/28/23 22:55 Troponin T Baseline 55 ng/L (0-15) H 01/28/23 22:55 Troponin T 120 Minute 49.36 ng/L (0-15) H 01/29/23 00:55 Delta Troponin T -5.64 ABS# (0-10) L 01/29/23 00:55 NT-Pro-B Natriuret Pep 183 pg/mL (0-125) H 01/28/23 22:55 Total Protein 6.9 g/dL (6.6-8.7) 01/28/23 22:55 Albumin 3.8 g/dL (3.5-5.2) 01/28/23 22:55 Globulin 3.1 g/dL (1.3-4.6) 01/28/23 22:55 Nasal Influ A H1 2008 PCR Not detected (NOT DETECT) 01/29/23 00:42 Adenovirus (PCR) Not detected (NOT DETECT) 01/29/23 00:42 C. pneumoniae DNA (PCR) Not detected (NOT DETECT) 01/29/23 00:42 Coronavirus 229E (PCR) Not detected (NOT DETECT) 01/29/23 00:42 Human Metapneumovir PCR Not detected (NOT DETECT) 01/29/23 00:42 Influenza A (H1) PCR Not detected (NOT DETECT) 01/29/23 00:42 Influenza A (H3) PCR Not detected (NOT DETECT) 01/29/23 00:42 Influenza Type A (PCR) Not detected (NOT DETECT) 05 00:42 Influenza Type B (PCR) Not detected (NOT DETECT) 01/29/23 00:42 M. pneumoniae (PCR) Not detected (NOT DETECT) 01/29/23 00:42 Parainfluenza 1 (PCR) Not detected (NOT DETECT) 01/29/23 00:42 Parainfluenza 2 (PCR) Not detected (NOT DETECT) 01/29/23 00:42 Parainfluenza 3 (PCR) Not detected (NOT DETECT) 01/29/23 00:42 Parainfluenza 4 (PCR) Not detected (NOT DETECT) 01/29/23 00:42 RSV Type A (PCR) Not detected (NOT DETECT) 01/29/23 00:42 RSV Type B (PCR) Not detected (NOT DETECT) 01/29/23 00:42 Entero/Rhino (PCR) Not detected (NOT DETECT) 01/29/23 00:42 SARS-CoV-2 (PCR) Not detected (NOT DETECT) 01/29/23 00:42 Discharge Plan Discharge Patient Disposition: Placed in Observation Admit Provider: Joanne Mayo Clinical Impression: Acute exacerbation of chronic obstructive airways disease Coding Level of Care Code ED Warehouse Delivery Manager for Jackelyn Holman
--- NOTE | 2023-01-28 22:53 | XRR_ITS ---
PROCEDURE INFORMATION: Exam: XR Chest Exam date and time: 01/28/2023 10:02 PM Age: 72 years old Clinical indication: Shortness of breath; Additional info: SOB TECHNIQUE: Imaging protocol: Radiologic exam of the chest. Views: 1 view. COMPARISON: CR (CHEST, ) 01/01/2023 11:54 PM FINDINGS: Lungs: Unremarkable. No consolidation. Subcentimeter right lung granuloma stable from comparison. Pleural spaces: Unremarkable. No pleural effusion. No pneumothorax. Heart/Mediastinum: Unremarkable. No cardiomegaly. Bones/joints: Unremarkable. XR/XR chest 1V portable [id number] IMPRESSION: No acute findings.
[2023-01-28] MEDS: ipratropium-albuterol 3 mL Neb INHALATION (22:58)
[2023-01-28 23:00] VITALS: PULSE 78; RESP 28; O2SAT 97
[2023-01-28] MEDS: predniSONE 20 mg Tablet 60 MG PO (23:03)
[2023-01-28 23:06] VITALS: PULSE 87; RESP 26; O2SAT 96
[2023-01-28 23:09] VITALS: BP 139/71; PULSE 80; RESP 33; TEMP 37; O2SAT 90; BMI 25.0
[2023-01-28 23:09] LABS: Basophils # 0.1 10^3/uL (0.0-0.1); Eosinophils # 0.9 10^3/uL (0.0-0.8); Eosinophils % 9.4 %; Hematocrit 38.1 % (42.0-52.0); Hemoglobin 11.2 g/dL (11.7-16.6); Lymphocytes # 1.6 10^3/uL (0.8-4.8); Lymphocytes % 16.8 %; Mean Corpuscular HGB Conc 29.4 g/dL (30.0-36.0); Mean Corpuscular Hemoglobin 25.4 pg (28.0-34.0); Mean Corpuscular Volume 86.4 fl (80-94); Mean Platelet Volume 8.9 fL (7.4-10.4); Monocytes # 0.7 10^3/uL (0.2-0.9); Monocytes % 6.9 %; Neutrophils # 6.26 10^3/uL (1.8-7.7); Neutrophils % 65.7 %; Nucleated Red Blood Cells % 0 %; Platelet Count 355 10^3/cmm (130-400); Red Blood Count 4.41 10^6/uL (4.1-5.3); Red Cell Distribution Width 16.1 % (12.1-15.1); White Blood Count 9.5 10^3/uL (4.0-10.0)
[2023-01-28 23:12] LABS: ABG PCO2 43.5 mmHg (35-45); ABG PH Result 7.42 (7.35-7.45); Arterial Blood Gas Hematocrit 35.7 % (42-52); Base Excess ABG 2.9 mmol/L (-2.0-2.0); Blood Gas Sample Site Brachial, right; Blood Gas Sample Type Arterial; Carboxyhemoglobin 4.9 %THgb (0.4-20.1); HCO3 ABG 27.9 mmol/L (22-26); Methemoglobin 0.5 % (0.4-1.5); Oxygen Device NC; PO2 ABG 70.5 mmHg (80.0-100.0); Total Hemoglobin 11.7 g/dL (14-18)
[2023-01-28 23:16] VITALS: BP 134/70; RESP 77; O2SAT 96
[2023-01-28 23:27] LABS: Troponin(5th) Baseline 55 ng/L (0-15)
[2023-01-28 23:37] LABS: Alanine Aminotransferase 16 U/L (0-41); Albumin Level 3.8 g/dL (3.5-5.2); Alkaline Phosphatase 95 U/L (40-130); Aspartate Amino Transferase 29 U/L (0-40); Blood Urea Nitrogen 11 mg/dL (8-23); Carbon Dioxide 26 mmol/L (22-29); Chloride 103 mmol/L (98-107); Globulin 3.1 g/dL (1.3-4.6); Glucose 65 mg/dL (65-115); NT Pro B Type Natriuretic Pept 183 pg/mL (0-125); Osmolality Calculated 286 mOsm/kg (285-295); Sodium 139 mmol/L (136-145); Total Bilirubin 0.5 mg/dL (0.15-1.2); Total Protein 6.9 g/dL (6.6-8.7)
[2023-01-28 23:50] LABS: D Dimer >= 20.00 ug/mIFEU (0-0.59)
--- NOTE | 2023-01-28 23:53 | CTR_ITS ---
PROCEDURE INFORMATION: Exam: CTA Chest With Contrast Exam date and time: 01/29/2023 12:32 AM Age: 72 years old Clinical indication: Shortness of breath; Additional info: SOB, cp, elevated ddimer, HX pe TECHNIQUE: Imaging protocol: Computed tomographic angiography of the chest with contrast. Exam focused on the arteries. 3D rendering (Not supervised by radiologist): MIP and/or 3D reconstructed images were created by the technologist. Radiation optimization: All CT scans at this facility use at least one of these dose optimization techniques: automated exposure control; mA and/or kV adjustment per patient size (includes targeted exams where dose is matched to clinical indication); or iterative reconstruction. Contrast material: OMNI 350; Contrast volume: 100 ml; Contrast route: INTRAVENOUS (IV); REPORTING DATA: Count of CT and Cardiac NM exams in prior 12 months: This patient has received 2 known CTs and 0 known cardiac nuclear medicine studies in the 12 months prior to the current study. COMPARISON: CT angio chest PE protcl [id number] 12/26/2022 11:28 AM RADIATION DOSE METRICS: Total DLP (mGy-cm): 368.15 FINDINGS: Pulmonary arteries: Normal. No pulmonary emboli. Aorta: Unremarkable. No aortic aneurysm. No aortic dissection. Thyroid: Unremarkable thyroid lobes. Lungs: Circumscribed calcified right upper lobe granuloma. Negative for pulmonary consolidation. Mild bronchial wall thickening. Negative for peripheral honeycombing. Negative for bronchiectasis. Small scattered peripheral endobronchial secretions. Pleural spaces: Unremarkable. No pneumothorax. No pleural effusion. Heart: Unremarkable. No cardiomegaly. No pericardial effusion. Mediastinal space: Unremarkable thoracic esophagus. Lymph nodes: Unremarkable. No enlarged lymph nodes. Gallbladder and bile ducts: Cholecystectomy. Nondilated biliary system. Bones/joints: Multiple left lateral chronic rib deformities. Negative for acute thoracic fracture. Soft tissues: Unremarkable. CT/CT angio chest PE protcl [id number] IMPRESSION: Negative for pulmonary embolism.
[2023-01-28 23:57] VITALS: PULSE 77; RESP 27; O2SAT 96
[2023-01-28] MEDS: albuterol 2.5 mg/3 mL Neb INHALATION (23:57)
[2023-01-29] VITALS (18 sets, daily range): BP systolic 115–156; BP diastolic 57–82; PULSE 63–93; RESP 16–28; TEMP 36.2–36.8; O2SAT 90–97; BMI 25.0
--- NOTE | 2023-01-29 01:01 | ECG_ITS ---
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 Measurements Intervals [place] Rate: 79 P: 69 MO: 165 QRS: 2 QRSD: 104 T: 59 QT: 416 QTc: 479 Interpretive Statements SINUS RHYTHM WITH OCCASIONAL VENTRICULAR PREMATURE COMPLEXES Compared to ECG 01/02/2023 06:05:27 Ventricular premature complex(es) now present Myocardial infarct finding no longer present Electronically Signed On 01-30-2023 8:34:20 CDT by Karthik Flores M.D. [id number]
[2023-01-29] MEDS: doxycycline 100 MG in sodium chloride 0.9% (plus) 100 ML IV (01:17)
[2023-01-29 01:33] LABS: Troponin 5 2HR 49.36 ng/L (0-15)
[2023-01-29] MEDS: albuterol 2.5 mg/3 mL Neb INHALATION (01:41)
--- NOTE | 2023-01-29 01:54 | P.HP_ITS ---
Providers/Chief Complaint Admitting Physician: Joanne Mayo MD Primary Care Provider: GRAHAM Mari Chief Complaint: Chest Pains History of Present Illness Stew Gardner is a 72 year old male with past medical history of class D COPD, DVT, PE, hyperlipidemia, hypertension recent hospitalization with discharge on 03 Jan 2023 presented to the hospital today for worsening shortness of breath. 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 He is on scheduled DuoNebs and has been compliant with his medications. He is bringing up clear phlegm. Recently was in the hospital for COPD exacerbation and discharged about a month ago. He states since then he was okay and has only use intermittent oxygen at nighttime. He was not wearing a mask when he was outdoors working with hay today. On arrival to ER he did receive steroids, DuoNeb and had audible wheezing. He was placed on 2 L nasal cannula. CTA was also done which showed no evidence of pulmonary embolism or pneumonia at this time. Respiratory viral panel negative. Daughter is present at bedside who supplements with the history. They state that patient was unable to get Trelegy inhaler filled due to insurance not approving it. They called back pulmonology office and left a voicemail and awaiting to hear back from them. In review of notes it seems that previously at pulmonology patient was recommended to be on Perforomist and Yupelri nebulizers however is unable to have them filled so far. Medications/Allergies Home Medications Medication Instructions Recorded Confirmed Last Taken Type albuterol sulfate 2.5 mg/3 mL 2.5 mg inhalation BID PRN 11/04/19 01/08/23 03/20/22 History (0.083 %) solution for nebulization Shortness Of Breath albuterol sulfate 90 mcg/actuation 2 puff inhalation Q4H PRN 11/04/19 01/08/23 03/20/22 History aerosol inhaler (Ventolin HFA) Shortness Of Breath aspirin 81 mg tablet,delayed 81 mg PO DAILY 11/04/19 01/08/23 03/19/22 History release omeprazole 40 mg capsule,delayed 40 mg PO DAILY 11/04/19 01/08/23 03/20/22 History release lisinopril 40 mg tablet 60 mg PO DAILY 01/10/22 01/08/23 03/20/22 History rosuvastatin 20 mg tablet 20 mg PO DAILY 01/10/22 01/08/23 03/20/22 History amlodipine 5 mg tablet 5 mg PO DAILY 01/02/23 01/08/23 Unknown History apixaban 5 mg tablet (Eliquis) See Rx Instructions .Route .COMPLEX 01/02/23 01/08/23 Unknown History ascorbic acid (vitamin C) 500 mg 500 mg PO DAILY 01/02/23 01/08/23 Unknown History tablet (Vitamin C) azelastine 137 mcg (0.1 %) nasal 1 spray intranasal BID PRN unknown 01/02/23 01/08/23 Unknown History spray aerosol cholecalciferol (vitamin D3) 25 25 mcg PO DAILY PRN unknown 01/02/23 01/08/23 Unknown History mcg (1,000 unit) tablet (Vitamin D3) cyanocobalamin (vitamin B-12) 1,000 mcg PO DAILY 01/02/23 01/08/23 Unknown History 1,000 mcg tablet (Vitamin B-12) glyburide 5 mg tablet 5 mg PO DAILY 01/02/23 01/08/23 Unknown History ipratropium 0.5 mg-albuterol 3 mg 3 ml inhalation QID PRN Shortness 01/02/23 01/08/23 Unknown History (2.5 mg base)/3 mL nebulization Of Breath soln methylsulfonylmethane 1,000 mg 1,000 mg PO DAILY 01/02/23 01/08/23 Unknown History tablet (MSM) multivitamin 1 tab PO DAILY 01/02/23 01/08/23 Unknown History niacin 500 mg tablet 500 mg PO DAILY 01/02/23 01/08/23 Unknown History omega-3 fatty acids 1,000 mg 1,000 mg PO DAILY 01/02/23 01/08/23 Unknown History capsule potassium gluconate 595 mg (99 mg) 595 mg PO DAILY 01/02/23 01/08/23 Unknown History tablet sildenafil 50 mg tablet 50 mg PO PRN PRN Erectile 01/02/23 01/08/23 Unknown History Dysfunction zinc acetate 50 mg (zinc) capsule 50 mg PO DAILY PRN unknown 01/02/23 01/08/23 Unknown History methylprednisolone 4 mg tablets in See Rx Instructions PO .COMPLEX 01/03/23 01/08/23 Unknown Rx a dose pack (Medrol (Sameer)) #21 ea fluticasone fur. 100 mcg-umeclid 1 inh inhalation DAILY #60 ea 01/16/23 Unknown Rx 62.5 mcg-vilant 25 mcg inhalat.powder (Trelegy Ellipta) Allergies Allergy/AdvReac Type Severity Reaction Status Date / Time insect venom Allergy Severe ALGY-Anaphy Verified 01/08/23 09:44 laxis Tetanus Vaccines and Toxoid Allergy ALGY-Anaphy Verified 01/08/23 09:44 laxis PFSH Acute PFSH: Medical History COPD (chronic obstructive pulmonary disease) DVT (deep venous thrombosis) Hyperlipidemia Hypertension Surgical History H/O spinal fusion History of cholecystectomy History of colonoscopy History of umbilical hernia repair Family History Father CAD (coronary artery disease) Mother CAD (coronary artery disease) Diabetes Parkinsons disease Other Autoimmune disease Social History Smoking and tobacco status: current every day smoker (2 cigar cigarrettes per day) cigars Cigars smoked per week: 14 Years smoked cigars: 10 Second hand smoke exposure: Yes Smoking risk assessment/counseling performed?: Yes Alcohol intake: never Counseling given: No Substance/Drug Use: never Counseling given: No Lives independently: Yes Household members: spouse Marital status: 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 HEENT: Normocephalic, atraumatic, EOMI, no acute respiratory distress Cardio: Regular rate rhythm, normal S1-S2 Respiratory: Rhonchi bilateral lung bailey along with wheezing expiratory GI: Abdomen soft, nontender,, bowel sounds + Behavior: Appropriate and cooperative Extremities: No edema bilateral lower extremities. Data 01/28/23 22:55 01/28/23 22:55 A&P Assessment and plan (1) Acute exacerbation of chronic obstructive airways disease: (2) COPD exacerbation: (3) GERD (gastroesophageal reflux disease): (4) Chronic respiratory failure: (5) Diabetes mellitus: (6) COPD (chronic obstructive pulmonary disease): (7) Nicotine dependence, cigarettes, uncomplicated: Plan #COPD exacerbation #Gold class D COPD #History of DVT, PE #GERD #Former smoker ? CTA negative for PE at this time. Negative for pneumonia ? Respiratory viral panel negative ? Patient was baling hay today and that most likely attributed to exacerbation ? We will place on prednisone 40 mg oral twice daily ? Azithromycin 500 daily ? Recommend Yupelri, Perforomist, budesonide nebulization treatments at discharge to [facility] pharmacy ? Discussed with pulmonology office regarding possible prior Auth for Trelegy inhaler if above unable to be covered by insurance ? Home oxygen evaluation at discharge ? Check procalcitonin ? Check sputum Gram stain culture ? Monitor for fever ? Continue DuoNeb every 6 hours scheduled, budesonide 0.5 inhaled twice daily ? Continue amlodipine, aspirin, Eliquis, lisinopril, omeprazole, rosuvastatin. -Patient will need prolonged prednisone taper at discharge. Full code Patient on Eliquis that should suffice for DVT prophylaxis Attestations Medical Necessity Statement*: Observation admission for COPD exacerbation. Expect less than 48-hour stay. Coding Level of Care Code G0426 (50 min) TH Encounter Time (min): 50 Patient seen via Telehealth in the acute care setting (hospital or ED location) by agreement and consent of patient or patient labor representative. Telehealth technology used during the visit includes video and audio. This patient encounter is appropriate and reasonable under the circumstances given the patient?s particular presentation at this time. The patient has been advised of the potential risks and limitations of this mode of treatment (including but not limited to the absence of in-person examination at this time) and has agreed to be treated by an off-site physician for this visit. If deemed clinically necessary from this telehealth visit, or if condition or consent for telehealth visit changes, an in-person visit will be arranged. For this encounter, total time for the origination of telehealth care on this date is as shown. Diagnoses Acute exacerbation of chronic obstructive airways disease J44.1 COPD exacerbation J44.1 GERD (gastroesophageal reflux disease) K21.9 Chronic respiratory failure J96.10 Diabetes mellitus E11.9 COPD (chronic obstructive pulmonary disease) J44.9 Nicotine dependence, cigarettes, uncomplicated F17.210
[2023-01-29 01:57] LABS: Troponin 5 2HR Delta -5.64 ABS# (0-10)
--- NOTE | 2023-01-29 02:31 | ECG_ITS ---
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 Measurements Intervals [place] Rate: 80 P: 0 MS: 0 QRS: 21 QRSD: 96 T: 86 QT: 388 QTc: 450 Interpretive Statements SUPRAVENTRICULAR RHYTHM SEPTAL MYOCARDIAL INFARCTION , OF INDETERMINATE AGE [40+ ms Q WAVE IN V1/V2] Compared to ECG 01/29/2023 01:01:29 Supraventricular rhythm now present Myocardial infarct finding now present Sinus rhythm no longer present Ventricular premature complex(es) no longer present Electronically Signed On 01-30-2023 8:34:11 CDT by Karthik Flores M.D. [email or web address] [email or web address] [email or web address].[email or web address]/store/[id number]
[2023-01-29 02:37] LABS: Adenovirus Not Detected (NOT DETECT); Chlamydia Pneumoniae Not Detected (NOT DETECT); Coronavirus 229E,HKU1,NL63,OC4 Not Detected (NOT DETECT); Human Metapneumovirus Not Detected (NOT DETECT); Human Rhinovirus/Enterovirus Not Detected (NOT DETECT); Influenza A Not Detected (NOT DETECT); Influenza A H1 Not Detected (NOT DETECT); Influenza A H1-2009 Not Detected (NOT DETECT); Influenza A H3 Not Detected (NOT DETECT); Influenza B Not Detected (NOT DETECT); Mycoplasma Pneumoniae Not Detected (NOT DETECT); Parainfluenza Virus Type 1 Not Detected (NOT DETECT); Parainfluenza Virus Type 2 Not Detected (NOT DETECT); Parainfluenza Virus Type 3 Not Detected (NOT DETECT); Parainfluenza Virus Type 4 Not Detected (NOT DETECT); Respiratory Syncytial Virus A Not Detected (NOT DETECT); Respiratory Syncytial Virus B Not Detected (NOT DETECT); SARS-COV-2 Not Detected (NOT DETECT)
[2023-01-29] MEDS: iohexol 350 mg/mL 500 mL Btl (per mL) IV (04:46)
[2023-01-29 06:29] LABS: Glucose Point of Care 289 mg/dL (70-110)
[2023-01-29 06:39] LABS: Troponin 5 6HR 40.12 ng/L (0-15)
[2023-01-29 07:00] LABS: Procalcitonin 0.03 ng/mL (0-0.5)
[2023-01-29] MEDS: azithromycin 250 mg Tablet 500 MG PO (08:23)
[2023-01-29] MEDS: atorvastatin 40 mg Tablet PO (08:24)
[2023-01-29] MEDS: pantoprazole DR 40 mg Tablet PO (08:24)
[2023-01-29] MEDS: predniSONE 20 mg Tablet 40 MG PO ×2 (08:24→17:43)
[2023-01-29] MEDS: lisinopril 20 mg Tablet 60 MG PO (08:24)
[2023-01-29] MEDS: apixaban 5 mg Tablet PO ×2 (08:24→20:57)
[2023-01-29] MEDS: aspirin 81 mg EC Tablet PO (08:24)
[2023-01-29] MEDS: amlodipine 5 mg Tablet PO (08:24)
[2023-01-29] MEDS: insulin lispro 100 unit/1 mL SUBCUT ×4 (08:29→20:56)
--- NOTE | 2023-01-29 08:49 | USR_ITS ---
PROCEDURE INFORMATION: Exam: US Duplex Lower Extremity Veins, Bilateral Exam date and time: 01/29/2023 11:21 AM Age: 72 years old Clinical indication: Other: Order says assess for dvt TECHNIQUE: Imaging protocol: Real-time duplex ultrasound of the bilateral extremities with 2-D qureshi scale, color Doppler flow and spectral waveform analysis including responses to compression and other maneuvers (when performed) with image documentation. Complete exam focused on the lower extremity veins. COMPARISON: CT angio chest w abd pel w con 08/28/2021 11:17 PM FINDINGS: Right deep veins: Unremarkable. The common femoral, femoral, proximal profunda femoral and popliteal veins are patent without thrombus. Normal Doppler waveforms. Normal compressibility and/or augmentation response. Right superficial veins: Saphenofemoral junction is patent without thrombus. Left deep veins: Unremarkable. The common femoral, femoral, proximal profunda femoral and popliteal veins are patent without thrombus. Normal Doppler waveforms. Normal compressibility and/or augmentation response. Left superficial veins: Saphenofemoral junction is patent without thrombus. Soft tissues: Unremarkable. US/CV venous duplex [facility] [id number] IMPRESSION: No evidence of deep vein thrombosis.
[2023-01-29] MEDS: ipratropium-albuterol 3 mL Neb INHALATION ×4 (08:50→20:31)
[2023-01-29] MEDS: budesonide 0.5 mg/2 mL Neb INHALATION ×2 (08:50→20:31)
[2023-01-29 13:00] LABS: Glucose Point of Care 319 mg/dL (70-110)
[2023-01-29 16:53] LABS: Glucose Point of Care 314 mg/dL (70-110)
--- NOTE | 2023-01-29 17:40 | PC.PT ---
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 Nursing confirms independent activities in room with good safety awareness, no further attempts to be made.
--- NOTE | 2023-01-29 19:44 | P.PN_ITS ---
Subjective Subjective: He is still having cough, wheezing, cough productive of phlegm. No chest pain. Recently has had some episodes of epistaxis from the right nostril. Not currently. Vitals/I&O/Wt Last Vital Signs Temp 98.2 F 01/29/23 16:00 Pulse 86 01/29/23 16:00 Resp 18 01/29/23 16:00 BP 127/57 01/29/23 16:00 Pulse Ox 92 01/29/23 16:00 O2 Del Method Nasal Cannula 01/29/23 16:00 O2 Flow Rate 2 01/29/23 15:04 01/29/23 01/29/23 01/29/23 06:59 14:59 22:59 Intake Total 100 / 100 1440 / 1440 240 / 1680 Output Total 550 / 550 300 / 300 Balance -450 / -450 1140 / 1140 240 / 1380 Weight last 48 hrs Weight 72.575 kg Weight 72.575 kg Physical Exam Const: COMMON NORMALS: patient oriented x3 and alert GENERAL APPEARANCE: cooperative ORIENTATION/CONSCIOUSNESS: Yes awake HENMT: COMMON NORMALS: oropharynx normal OTHER: Do not appreciate any polyp or other finding in the flashlight illuminated nares. Neck/C-Spine: COMMON NORMALS: no JVD Resp: COMMON NORMALS: normal respiratory effort AUSCULTATION: wheezes Cardio: COMMON NORMALS: no JVD, regular rhythm, S1 normal heart sound present, S2 normal heart sound present and No murmurs present (Cardio) RHYTHM: regular rhythm HEART SOUNDS: S1 normal heart sound present and S2 normal heart sound present GI: COMMON NORMALS: Normal to inspection, nondistended, normoactive bowel sounds present, Soft to palpation and non-tender PALPATION: Yes Soft to palpation Extremity: COMMON NORMALS: no joint enlargement and no pedal edema Neuro: COMMON NORMALS: patient oriented x3 and moves all extremities SENSORIUM/ORIENTATION: Yes alert Skin: COMMON NORMALS: no rashes or lesions noted GENERAL SKIN EXAM: no rashes or lesions noted Data 01/28/23 22:55 01/28/23 22:55 A&P Assessment and plan (1) Acute exacerbation of chronic obstructive airways disease: (2) COPD exacerbation: (3) GERD (gastroesophageal reflux disease): (4) Chronic respiratory failure: (5) Diabetes mellitus: (6) COPD (chronic obstructive pulmonary disease): (7) Nicotine dependence, cigarettes, uncomplicated: Plan #COPD exacerbation #Gold class D COPD #History of DVT, PE #GERD #Former smoker Continues with wheezing, productive cough and dyspnea, requiring 3 L nasal cannula oxygen, due to recent epistaxis discussed with RT requesting placement of humidifier on oxygen, or may need to transition to HHF. Discussed with him course of action in case of epistaxis. As his condition has not improved, he is with new hypoxia, severe COPD exacerbation, wheezing, purulent productive cough, continue steroid for now with prednisone, added 4 times daily scheduled breathing treatment. Continue as needed's. Follow-up sputum culture. Continue antibiotics for now. Discussed with him also elevated D-dimer. CTA without PE. Requested lower extremity duplex, no DVT. ? CTA negative for PE at this time. Negative for pneumonia ? Respiratory viral panel negative ? 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 Continue budesonide ? Azithromycin 500 daily ? Recommend Yupelri, Perforomist, budesonide nebulization treatments at discharge to [facility] [place] pharmacy ? Possible prior Auth for Trelegy inhaler if above unable to be covered by insurance ? Home oxygen evaluation at discharge Procalcitonin noted 0.03 ? Check sputum Gram stain culture ? Monitor for fever ? Continue amlodipine, aspirin, Eliquis, lisinopril, omeprazole, rosuvastatin. -Patient will need prolonged prednisone taper at discharge. Full code Patient on Eliquis that should suffice for DVT prophylaxis Attestations Medical Necessity Statement*: Continue hospitalization for assessment management of severe COPD exacerbation. Diagnoses Acute exacerbation of chronic obstructive airways disease J44.1 COPD exacerbation J44.1 GERD (gastroesophageal reflux disease) K21.9 Chronic respiratory failure J96.10 Diabetes mellitus E11.9 COPD (chronic obstructive pulmonary disease) J44.9 Nicotine dependence, cigarettes, uncomplicated F17.210
[2023-01-29 20:54] LABS: Glucose Point of Care 218 mg/dL (70-110)
[2023-01-30] VITALS (10 sets, daily range): BP systolic 123–139; BP diastolic 60–77; PULSE 18–76; RESP 16–19; TEMP 36.6–36.8; O2SAT 88–98
[2023-01-30 06:22] LABS: Basophils # 0.1 10^3/uL (0.0-0.1); Basophils % 0.4 %; Hemoglobin 10.3 g/dL (11.7-16.6); Lymphocytes # 1.5 10^3/uL (0.8-4.8); Lymphocytes % 13.3 %; Mean Corpuscular HGB Conc 29.4 g/dL (30.0-36.0); Mean Corpuscular Hemoglobin 25.8 pg (28.0-34.0); Mean Corpuscular Volume 87.5 fl (80-94); Mean Platelet Volume 9.2 fL (7.4-10.4); Monocytes # 0.5 10^3/uL (0.2-0.9); Monocytes % 4.2 %; Neutrophils # 9.19 10^3/uL (1.8-7.7); Neutrophils % 81.7 %; Nucleated Red Blood Cells % 0 %; Platelet Count 346 10^3/cmm (130-400); Red Cell Distribution Width 16.2 % (12.1-15.1); White Blood Count 11.3 10^3/uL (4.0-10.0)
[2023-01-30 06:36] LABS: Anion Gap 12.4 (5-19); Blood Urea Nitrogen 16 mg/dL (8-23); Calcium 8.5 mg/dL (8.5-10.5); Carbon Dioxide 26 mmol/L (22-29); Chloride 104 mmol/L (98-107); Glucose 185 mg/dL (65-115); Magnesium 2.4 mg/dL (1.7-2.3); Osmolality Calculated 290 mOsm/kg (285-295); Potassium 5.4 mmol/L (3.5-5.1); Sodium 137 mmol/L (136-145)
[2023-01-30 06:49] LABS: Glucose Point of Care 212 mg/dL (70-110)
[2023-01-30] MEDS: budesonide 0.5 mg/2 mL Neb INHALATION (07:26)
[2023-01-30] MEDS: ipratropium-albuterol 3 mL Neb INHALATION ×3 (07:27→16:10)
[2023-01-30] MEDS: azithromycin 250 mg Tablet 500 MG PO (08:09)
[2023-01-30] MEDS: apixaban 5 mg Tablet PO (08:10)
[2023-01-30] MEDS: lisinopril 20 mg Tablet 60 MG PO (08:10)
[2023-01-30] MEDS: aspirin 81 mg EC Tablet PO (08:10)
[2023-01-30] MEDS: pantoprazole DR 40 mg Tablet PO (08:10)
[2023-01-30] MEDS: insulin lispro 100 unit/1 mL SUBCUT ×2 (08:10→12:17)
[2023-01-30] MEDS: amlodipine 5 mg Tablet PO (08:10)
[2023-01-30] MEDS: atorvastatin 40 mg Tablet PO (08:10)
[2023-01-30] MEDS: predniSONE 20 mg Tablet 40 MG PO (08:10)
--- NOTE | 2023-01-30 09:17 | PC.CHAP ---
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 [] Patient/Family/Request visit [] Outpatient visit [] Follow-up visit [] Physician referral [] Code/Alert [x] Routine visit [] Staff referral [] Actively dying [] Patient sleeping [] Family support [] [] Out of room [] Palliative care [] [] Receiving care in room [] Pre-surgical visit [] Trauma [] Long length of stay [] ICU visit [] Other: Relational/Emotional Strength [x] Patient feels connected with others/family/visitors/staff [] Distress [] Loneliness/isolation [] Abandonment Spirituality of Patient [x] Person of Raeann [] Attends Episcopal of their Raeann [x] Believes in Prayer [] Reads Bible or Taoist materials [] There are Spiritual issues to be addressed [employer] Mechanic Interventions [x] Prayer [] Active listening [] Non-anxious presence [x] Spiritual/emotional support [] Crisis/trauma care [] Spiritual counseling [] Bereavement support [] Provided bereavement packet [] Provided Bible/devotional materials [] Provided toy/stuffed animal, coloring book to patient or family member [] Provided Communion [] Anointing/[place] [] Salvation [x] Completed spiritual assessment [] Other: Impact on Illness or Injury [] Angry [] Fearful [] Anxious [] Often cries [] Exhaustion [] Unable to work [] Unable to attend church [] Unable to walk/stand [] Unable to read [] Unable to drive [] Unable to eat/drink [] Unable to sleep [] Unable to be with family [] Patient intubated [] Other: Summary Time spent with patient 5 min
[2023-01-30 12:12] LABS: Glucose Point of Care 165 mg/dL (70-110)
--- NOTE | 2023-01-30 12:28 | P.DS_ITS ---
Discharge Providers Date of Admission: 01/29/23 01:26 Date of Discharge: January 30, 2023 Attending Provider at Admission: Joanne Mayo MD Attending Provider at Discharge: Danyel Corey Primary Care Provider: GRAHAM Mari Diagnoses at Discharge Discharge Diagnosis (1) Acute exacerbation of chronic obstructive airways disease: Status: Acute (2) COPD exacerbation: Status: Acute (3) GERD (gastroesophageal reflux disease): Status: Acute (4) Chronic respiratory failure: Status: Acute (5) Diabetes mellitus: Status: Acute (6) COPD (chronic obstructive pulmonary disease): Status: Acute (7) Nicotine dependence, cigarettes, uncomplicated: Status: Acute Reason for Visit Reason for Visit: Chest Pains Hospital Course Hospital Course Pleasant 72-year-old gentleman with COPD, history of DVT and PE, HLD, HTN, recently hospitalized January 03 was hospitalized for assessment of management of COPD exacerbation after baling hay. At home was using Inogen device intermittently, although it has not been working properly. On presentation CTA did not show PE. No focal pneumonia. Severe COPD exacerbation lungs diminished with wheezing, dyspnea with productive cough with purulent sputum, received gogo atment with azithromycin, prednisone, breathing treatments with DuoNebs, inhaled budesonide, oxygen support his condition improved. Oxygen requirement has been coming down, still on 2 L currently but saturating 95%. Home oxygen evaluation will be performed prior to discharge she will be set up with oxygen equipment given his device is not functioning properly. He is asked to avoid baling hay, working dust environments or submitting himself to other exposures which may be damaging to his lungs, otherwise is asked to at least wear proper respirator. He states that he will delegate tasks to either family and otherwise also will get himself and N95 for higher respirator. Understands that with exacerbations his lung function consistently diminishes. He is asked to follow-up with pulmonology. Prescription is given for Yupelri and Perforomist, although he may not be able to afford these, in which case arrangements to be continued with pulmonology office to obtain Trelegy. Physical Exam Const: COMMON NORMALS: patient oriented x3 and alert GENERAL APPEARANCE: cooperative ORIENTATION/CONSCIOUSNESS: Yes awake HENMT: COMMON NORMALS: oropharynx normal Neck/C-Spine: COMMON NORMALS: no JVD Resp: COMMON NORMALS: normal respiratory effort and clear to auscultation bilaterally AUSCULTATION: clear to auscultation bilaterally Cardio: COMMON NORMALS: no JVD, regular rhythm, S1 normal heart sound present, S2 normal heart sound present and No murmurs present (Cardio) RHYTHM: regular rhythm HEART SOUNDS: S1 normal heart sound present and S2 normal heart sound present GI: COMMON NORMALS: Normal to inspection, nondistended, normoactive bowel sounds present, Soft to palpation and non-tender PALPATION: Yes Soft to palpation Extremity: COMMON NORMALS: no joint enlargement and no pedal edema Neuro: COMMON NORMALS: patient oriented x3 and moves all extremities SENSORIUM/ORIENTATION: Yes alert Skin: COMMON NORMALS: no rashes or lesions noted GENERAL SKIN EXAM: no rashes or lesions noted Discharge Data Studies Completed and Pending Completed Studies During Hospitalization Category Date Time Status CTA chest [CT angio chest PE protcl [id number]] Stat Cat Scan 01/28/23 23:53 Completed XR chest 1V portable [id number] Stat Exams 01/28/23 22:53 Completed US venous duplex lower extremity bilat [CV venous Ultrasound 01/29/23 08:49 [place] [id number]] Routine Pending at discharge Category Date Time Status Sputum Culture and Gram Stain Stat Lab 01/29/23 03:55 Uncollected Radiology Impressions Chest X-Ray 01/28/23 22:53 IMPRESSION: No acute findings. Chest CTA 01/28/23 23:53 IMPRESSION: Negative for pulmonary embolism. Venous Duplex 01/29/23 08:49 IMPRESSION: No evidence of deep vein thrombosis. Laboratory Results WBC 11.3 10^3/uL (4.0-10.0) H 01/30/23 05:49 RBC 4.00 10^6/uL (4.1-5.3) L 01/30/23 05:49 Hgb 10.3 g/dL (11.7-16.6) L 01/30/23 05:49 Hct 35.0 % (42.0-52.0) L 01/30/23 05:49 MCV 87.5 fl (80-94) 01/30/23 05:49 MCH 25.8 pg (28.0-34.0) L 01/30/23 05:49 MCHC 29.4 g/dL (30.0-36.0) L 01/30/23 05:49 RDW 16.2 % (12.1-15.1) H 01/30/23 05:49 Plt Count 346 10^3/cmm (130-400) 01/30/23 05:49 MPV 9.2 fL (7.4-10.4) 01/30/23 05:49 Neut % (Auto) 81.7 % 01/30/23 05:49 Lymph % (Auto) 13.3 % 01/30/23 05:49 [place] % (Auto) 4.2 % 01/30/23 05:49 Eos % (Auto) 0.0 % 01/30/23 05:49 Baso % (Auto) 0.4 % 01/30/23 05:49 Neut # (Auto) 9.19 10^3/uL (1.8-7.7) H 01/30/23 05:49 Lymph # (Auto) 1.5 10^3/uL (0.8-4.8) 01/30/23 05:49 [place] # (Auto) 0.5 10^3/uL (0.2-0.9) 01/30/23 05:49 Eos # (Auto) 0.0 10^3/uL (0.0-0.8) 01/30/23 05:49 Baso # (Auto) 0.1 10^3/uL (0.0-0.1) 01/30/23 05:49 Nucleated RBC % (auto) 0 % 01/30/23 05:49 Nucleated RBCs # 0.0 /100WBC 01/30/23 05:49 D-Dimer >= 20.00 ug/mIFEU (0-0.59) H 01/28/23 22:55 Specimen Type Arterial 01/28/23 21:00 Sample Site Brachial, right 01/28/23 21:00 ABG pH 7.42 (7.35-7.45) 01/28/23 21:00 ABG pCO2 43.5 mmHg (35-45) 01/28/23 21:00 ABG pO2 70.5 mmHg (80.0-100.0) L 01/28/23 21:00 ABG HCO3 27.9 mmol/L (22-26) H 01/28/23 21:00 ABG Base Excess 2.9 mmol/L (-2.0-2.0) H 01/28/23 21:00 Stan Test N/a 01/28/23 21:00 Hematocrit 35.7 % (42-52) L 01/28/23 21:00 Hgb O2 Saturation 91.0 % (95-100) L 01/28/23 21:00 Carboxyhemoglobin 4.9 %THgb (0.4-20.1) 01/28/23 21:00 Methemoglobin 0.5 % (0.4-1.5) 01/28/23 21:00 Total Hemoglobin 11.7 g/dL (14-18) L 01/28/23 21:00 O2 Delivery Device Nc 01/28/23 21:00 O2 Liters/Min 2.0 % 01/28/23 21:00 FiO2 28.0 % 01/28/23 21:00 Nurse Transitional ID Hienanisha 01/28/23 21:00 Sodium 137 mmol/L (136-145) 01/30/23 05:49 Potassium 5.4 mmol/L (3.5-5.1) H 01/30/23 05:49 Chloride 104 mmol/L (98-107) 01/30/23 05:49 Carbon Dioxide 26 mmol/L (22-29) 01/30/23 05:49 Anion Gap 12.4 (5-19) 01/30/23 05:49 BUN 16 mg/dL (8-23) 01/30/23 05:49 Creatinine 0.9 mg/dL (0.7-1.2) 01/30/23 05:49 GFR Calculation Not Reportable 01/30/23 05:49 Glucose 185 mg/dL (65-115) H 01/30/23 05:49 POC Glucose 165 mg/dL (70-110) H 01/30/23 11:32 Calculated Osmolality 290 mOsm/kg (285-295) 01/30/23 05:49 Calcium 8.5 mg/dL (8.5-10.5) 01/30/23 05:49 Magnesium 2.4 mg/dL (1.7-2.3) H 01/30/23 05:49 Total Bilirubin 0.5 mg/dL (0.15-1.2) 01/28/23 22:55 AST 29 U/L (0-40) 01/28/23 22:55 ALT 16 U/L (0-41) 01/28/23 22:55 Alkaline Phosphatase 95 U/L (40-130) 01/28/23 22:55 Troponin T Baseline 55 ng/L (0-15) H 01/28/23 22:55 Troponin T 120 Minute 49.36 ng/L (0-15) H 01/29/23 00:55 Delta Troponin T -5.64 ABS# (0-10) L 01/29/23 00:55 Troponin T Hi Sens 6Hr 40.12 ng/L (0-15) H 01/29/23 05:28 Troponin T Hi Sens 6Hr Delta -14.88 ng/L (0-12) L 01/29/23 05:28 NT-Pro-B Natriuret Pep 183 pg/mL (0-125) H 01/28/23 22:55 Total Protein 6.9 g/dL (6.6-8.7) 01/28/23 22:55 Albumin 3.8 g/dL (3.5-5.2) 01/28/23 22:55 Globulin 3.1 g/dL (1.3-4.6) 01/28/23 22:55 Procalcitonin 0.03 ng/mL (0-0.5) 01/29/23 05:28 Nasal Influ A H1 2008 PCR Not detected (NOT DETECT) 01/29/23 00:42 Adenovirus (PCR) Not detected (NOT DETECT) 01/29/23 00:42 C. pneumoniae DNA (PCR) Not detected (NOT DETECT) 01/29/23 00:42 Coronavirus 229E (PCR) Not detected (NOT DETECT) 01/29/23 00:42 Human Metapneumovir PCR Not detected (NOT DETECT) 01/29/23 00:42 Influenza A (H1) PCR Not detected (NOT DETECT) 01/29/23 00:42 Influenza A (H3) PCR Not detected (NOT DETECT) 01/29/23 00:42 Influenza Type A (PCR) Not detected (NOT DETECT) 01/29/23 00:42 Influenza Type B (PCR) Not detected (NOT DETECT) 01/29/23 00:42 M. pneumoniae (PCR) Not detected (NOT DETECT) 01/29/23 00:42 Parainfluenza 1 (PCR) Not detected (NOT DETECT) 01/29/23 00:42 Parainfluenza 2 (PCR) Not detected (NOT DETECT) 01/29/23 00:42 Parainfluenza 3 (PCR) Not detected (NOT DETECT) 01/29/23 00:42 Parainfluenza 4 (PCR) Not detected (NOT DETECT) 01/29/23 00:42 RSV Type A (PCR) Not detected (NOT DETECT) 01/29/23 00:42 RSV Type B (PCR) Not detected (NOT DETECT) 01/29/23 00:42 Entero/Rhino (PCR) Not detected (NOT DETECT) 01/29/23 00:42 SARS-CoV-2 (PCR) Not detected (NOT DETECT) 01/29/23 00:42 Vitals Last Vital Signs Temp 98.3 F 01/30/23 08:00 Pulse 66 01/30/23 11:35 Resp 16 01/30/23 11:35 BP 123/60 01/30/23 08:00 Pulse Ox 97 01/30/23 11:35 O2 Del Method Nasal Cannula 01/30/23 11:35 O2 Flow Rate 2 01/30/23 11:35 Discharge Plan Discharge Patient Disposition: Home Condition: Stable Prescriptions: New azithromycin 250 mg Tablet 500 mg PO DAILY Qty: 4 0RF formoterol fumarate [Perforomist] 20 mcg/2 mL solution for nebulization 2 ml inhalation Q12H Qty: 120 0RF revefenacin 175 mcg/3 mL solution for nebulization 175 mcg inhalation DAILY Qty: 90 0RF prednisone 20 mg tablet 20 mg PO DAILY Qty: 20 0RF Rx Instructions: 3 tab daily for 3 days, then 2 tab for 3 days, then 1 tab for 3 days, then 1/2 tab for 4 days. Continued rosuvastatin 20 mg tablet 20 mg PO DAILY albuterol sulfate 2.5 mg /3 mL (0.083 %) solution for nebulization 2.5 mg inhalation BID PRN (Reason: Shortness Of Breath) omeprazole 40 mg capsule,delayed release(DR/EC) 40 mg PO DAILY aspirin 81 mg Tablet,Delayed Release (Dr/Ec) 81 mg PO DAILY albuterol sulfate [Ventolin HFA] 90 mcg/actuation HFA aerosol inhaler 2 puff INHALATION Q4H PRN (Reason: Shortness Of Breath) lisinopril 40 mg tablet 60 mg PO DAILY multivitamin Tablet 1 tab PO DAILY ipratropium-albuterol 0.5 mg-3 mg(2.5 mg base)/3 mL Solution For Nebulization 3 ml INHALATION QID PRN (Reason: Shortness Of Breath) zinc acetate 50 mg (zinc) Capsule 50 mg PO DAILY omega-3 fatty acids 1,000 mg Capsule 1,000 mg PO DAILY sildenafil 50 mg tablet 50 mg PO PRN PRN (Reason: Erectile Dysfunction) glyburide 5 mg tablet 5 mg PO DAILY cyanocobalamin (vitamin B-12) [Vitamin B-12] 1,000 mcg Tablet 1,000 mcg PO DAILY amlodipine 5 mg tablet 5 mg PO DAILY ascorbic acid (vitamin C) [Vitamin C] 500 mg Tablet 500 mg PO DAILY niacin 500 mg Tablet 500 mg PO DAILY methylsulfonylmethane [MSM] 1,000 mg Tablet 1,000 mg PO DAILY cholecalciferol (vitamin D3) [Vitamin D3] 25 mcg (1,000 unit) Tablet 25 mcg PO DAILY potassium gluconate 595 mg (99 mg) Tablet 595 mg PO DAILY Eliquis 5 mg Tablet 5 mg PO BID azelastine 137 mcg (0.1 %) aerosol,spray 1 spray intranasal BID PRN (Reason: unknown) Rx Instructions: administer into each nostril Spiriva Respimat 1.25 mcg/actuation mist 1 puff INHALATION DAILY Discharge Orders: Discharge Order (Routine); Ordered 01/30/23 Ordered By: Danyel Corey Referrals: Gabriela Szymanski FNP [Primary Care Provider] - 02/01/23 3:00 pm Datar,Joao Franklin MD [Physician] - 2 weeks Discharge Activity: Oxygen as instructed Patient Instructions: Heart Attack (DC), COPD (Chronic Obstructive Pulmonary Disease) (GEN), COPD Stoplight, Opioid Safety Activity Restrictions/Additional Instructions: If you are unable to obtain the medication revefenacin (Yupelri) and formoterol (Perforomist), switch to these medications from [facility], otherwise continue current regimen and work with your pulmonology office for arrangements for Trel egy. Avoid bel environments or environments with allergens, pollen, avoid working in hot conditions, especially currently while recovering. If having to work with any amount of dust wear an appropriate filter mask with filter is rated in 95 or higher ensuring a good seal. Delegate and avoid work which may be injurious to your lungs. Discharge Attestations Time Spent in Discharge Care*: greater than 30 min Quality Metrics Clinical Quality Measures [ No reported AMI, CVA or VTE this stay] Coding Level of Care Code Acute Code for Chg Fwd Diagnoses Acute exacerbation of chronic obstructive airways disease J44.1 COPD exacerbation J44.1 GERD (gastroesophageal reflux disease) K21.9 Chronic respiratory failure J96.10 Diabetes mellitus E11.9 COPD (chronic obstructive pulmonary disease) J44.9 Nicotine dependence, cigarettes, uncomplicated F17.210
== END 2023-01-30 16:40 | disposition home or self-care (01) ==
LOC: ER 01-29 01:14 → MEDSURG 01-29 01:27
PROVIDERS: Admitting Provider Internal Medicine; Emergency Provider Emergency Medicine; PCP Nurse Practitioner Family; Visit Provider Internal Medicine
DX: J44.1 Chronic obstructive pulmonary disease with (acute) exacerbation (principal); Z86.718 Personal history of other venous thrombosis and embolism; Z86.711 Personal history of pulmonary embolism; E78.5 Hyperlipidemia, unspecified; I10 Essential (primary) hypertension; Z98.1 Arthrodesis status; F17.210 Nicotine dependence, cigarettes, uncomplicated; K21.9 Gastro-esophageal reflux disease without esophagitis; J96.10 Chronic respiratory failure, unspecified whether with hypoxia or hypercapnia; E11.9 Type 2 diabetes mellitus without complications; Z79.51 Long term (current) use of inhaled steroids; Z79.82 Long term (current) use of aspirin; Z79.01 Long term (current) use of anticoagulants; Z79.84 Long term (current) use of oral hypoglycemic drugs
CPT/HCPCS: 36415; 36416; 36600; 71045; 71275; 80048; 80053; 82805; 82962; 83735; 83880; 84145; 84484; 85025; 85378; 87486; 87581; 87633; 93005; 93970; 94640; 94664; 94760; 96365; 96372; 97110; 97161; 99285; G0378; J1815; J3490; J7512; J7613; J7626; Q0144; Q9967

== ENCOUNTER → 2023-03-07 10:43 | Outpatient (BNVA) | payer MEDICARE, SELFPAY | PROVIDERS: PCP Nurse Practitioner Family; Visit Provider Internal Medicine Cardiovascular Disease | DX: R55 Syncope and collapse (principal); E11.9 Type 2 diabetes mellitus without complications; Z79.84 Long term (current) use of oral hypoglycemic drugs; R07.89 Other chest pain; I10 Essential (primary) hypertension; E78.5 Hyperlipidemia, unspecified; J44.1 Chronic obstructive pulmonary disease with (acute) exacerbation; F17.210 Nicotine dependence, cigarettes, uncomplicated | CPT/HCPCS: 99205 ==

== ENCOUNTER 2023-04-23 07:16 | Outpatient (CLI) | payer MEDICARE, SELFPAY ==
--- NOTE | 2023-04-23 | ECG_ITS ---
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 Interpretive Statements NAME OF STUDY: LEXISCAN SESTAMIBI STRESS TEST INDICATION: Chest Pain RESULTS TO RANJITH LAMAR PROCEDURE: At the baseline, the EKG revealed normal sinus rhythm with a normal ST Ts.. The baseline heart was 60 bpm with a blood pressue of 146/62 mm of Hg Lexiscan was infused over a period of 20 seconds. A total of 0.4 milligrams of Lexiscan was infused. The stress phase was continued for a total of 5 minutes. Heart rate at the end of the stress phase was 82 bpm with a blood pressure 133/50 mm of Hg. The EKG at the peak infusion revealed no significant changes. Sestamibi was injected 20 seconds after the Lexiscan infusion. Heart rate at the end of the recovery phase was 82 bpm with a blood pressure of 131/54 mm of Hg. CONCLUSION: 1. No significant EKG changes with the LexiScan infusion 2. No LexiScan induced chest pain or cardiac arrhythmia 3. Normal blood pressure and heart rate response 4. Sestamibi/sestamibi perfusion scan pending; see separate report. Electronically Signed On 04-30-2023 11:11:59 CDT by Hector Headley M.D. [email or web address]
[2023-04-23 07:49] VITALS: BMI 27.7
--- NOTE | 2023-04-23 07:54 | NMCV_ITS ---
NM derrek perf SPECT r/s* [id number] Stew Gardner Age: 72 Gender: M : 1950 Exam Date: 04/23/2023 08:52 Ordering Phys: Hector Headley MD ([email or web address]) Technologist: ZAI Prajapati Exam Location: [facility] Indications: CORONARY ANGIOPLASTY STATUS STRESS TEST [facility] IMAGE PROTOCOL Rest/Stress 1 Lexiscan Day Radiopharmaceutical Dose (mCi) Administration Site Administered by Rest: Tc-99m 10.3 IV ZIA Prajapati Sestamibi Stress:Tc-99m 32.7 IV ZIA Marino Sestamibi Rest: 23-Apr-2023 60 Discovery 630 Stress: 23-Apr-2023 30 Discovery 630 0.4mg Lexiscan. Images obtained in supine and prone position. SPECT RESULTS Technical Quality: Excellent Raw Data Analysis: Normal Image Corrections: No attenuation or motion correction applied Summed Stress Score: 16 Summed Rest Score: 4 Summed Difference Score: 12 PERFUSION FINDINGS Moderate area of moderate to severely decreased tracer uptake in the mid and apical inferior, mid inferoseptal, mid anteroseptal and all the apical segments, including LV apex. Significant reversibility was noted in these regions. FUNCTIONAL RESULTS (calculated via Gated SPECT) Stress Image LV EF (%): 68 Stress EDV (mL):147 TID: 1.01 Stress ESV (mL):47 FUNCTIONAL FINDINGS: Segmental wall motion analysis revealing no gross wall motion abnormalities IMPRESSIONS 1. Myocardial perfusion imaging revealing moderate area of moderate to severely decreased tracer uptake in the inferior, septal and apical regions suggesting ischemia predominantly in the distribution of the right coronary artery and left anterior descending artery with some involvement of the left circumflex artery. The combined ischemia represent 25% of the viable myocardium. 2. Normal LV ejection fraction of 68%. 3. LV wall motion analysis revealing no gross wall motion abnormalities. 4. LV volume, upper limit of normal No similar previous studies are available for comparison Dr Hector Headley MD [facility] (Electronically Signed) Final Date: 24 April 2023 08:14 S
[2023-04-23] MEDS: regadenoson 0.4 Mg/5 ml Syringe IVP (09:31)
[2023-04-23 09:45] VITALS: BP 131/54; PULSE 82
== END 2023-04-23 07:17 | disposition home or self-care (01) ==
PROVIDERS: PCP Nurse Practitioner Family; Visit Provider Internal Medicine Cardiovascular Disease
DX: R07.9 Chest pain, unspecified (principal)
CPT/HCPCS: 36415; 78452; 93017; 96374; A9500; J2785

== ENCOUNTER → 2023-04-30 13:31 | Outpatient (BNVA) | payer MEDICARE, SELFPAY | PROVIDERS: PCP Nurse Practitioner Family; Visit Provider Nurse Practitioner Family | DX: R94.39 Abnormal result of other cardiovascular function study (principal) | CPT/HCPCS: 36415; 80048; 85025; 85610; 99214 ==

== ENCOUNTER 2023-05-14 08:17 | Observation (INO) | payer MEDICARE, SELFPAY ==
[2023-05-14] VITALS (25 sets, daily range): BP systolic 100–145; BP diastolic 56–82; PULSE 62–75; RESP 15–92; TEMP 36.4–37.2; O2SAT 93–99; BMI 28.0
--- NOTE | 2023-05-14 06:00 | XACV_ITS ---
Exam Room: 2 Ht: 170 cm Wt: 81 kg BSA: 1.98 m2 Gender: Male : 1950 Any Known Allergies: Other Exam Priority: Routine Procedure(s): Procedure Description: Diagnostic procedure Procedure Description: Left Heart Catheterization Procedure Description: Left ventriculography Procedure Description: Coronary Angiography Kayode SALDAÑA; Diagnostic Cath Status: Elective Diagnostic Findings * The left main is an extremely short vessel which appears to bifurcate to the LAD and left circumflex artery. * The left anterior descending artery is a medium caliber vessel which appears to wrap around the LV apex minimally. 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 The mid and distal LAD was found to have minimal intimal irregularities. Moderate calcification was noted in the proximal to the mid LAD. * The left circumflex artery is a moderate to large caliber dominant vessel patient was found to have a segmental stenosis of around 85% at the mid segment. The distal circumflex artery was found to have minimal tubular narrowing. * The right coronary artery is a relatively small caliber nondominant vessel which was found to be totally occluded after giving off the sinus evelia branch. Grade 2 [id number] collaterals were noted during the left coronary injection. Conclusions 1. This is a 72-year-old white male with a history of recurrent chest pain/syncope and multiple risk factors for coronary disease had a Myocardial perfusion imaging which was found to be abnormal. He was found to have moderate area of reversible defect involving the distribution of the right coronary artery left descending artery and circumflex artery. For further evaluation of his coronary status, a cardiac catheterization was recommended. Patient underwent left heart catheterization with left and right coronary angiogram today. The findings are as follows.. 2. Extremely short left main. High-grade complex lesion of around 95% at the mid LAD involving the ostium of the second diagonal. High-grade lesion in the mid circumflex artery. Total occlusion of the nondominant right coronary artery with a fairly good [id number] collaterals. LVEDP 26 mmHg. Recommendations * Patient was found to be anemic with a hemoglobin of 7.0. For this reason, he will be admitted to hospital for blood transfusion and a GI work-up. If there is no active bleeding, we may consider PCI of the LAD and circumflex artery lesions. Diagnostic RX Recommendation: PCI w/o planned CABG LV EDP: 26 mmHg Left Ventriculography Findings: * The LV gram was not performed because of the frequent PVCs, high LVEDP and severe anemia. Pressures Phase:Rest AO : 81 / 43 ( 60 ) @ 8:38:00 AM 116 / 30 ( 73 ) @ 8:43:00 AM LV : 120 / 6 / 26 @ 8:43:00 AM Clinical Evaluation EBL: 5mL-10mL Procedural Details Procedure Consent Obtained. Current Diagnosis : Chest Pain. Pre-Procedure Time Out. Identified patient by full name and date of as verbalized by the patient/guarantor. Does the consent match the physician's order: Yes. Accurate & Complete Informed Consent: Yes. Inpatient/Outpatient History & Physical on Chart: Yes. If H&P is completed, is and addenduem needed: No; If yes, is the addendum complete: N/A. Visualize and Verify Site with Patient/Guarantor: N/A. Relevant Radiology Images available: Yes. Pre-op teaching completed and patient verbalized understanding. The risks, benefits, and alternatives of sedation and/or procedure were discussed by physician. The patient agrees to continue. Procedure started. [facility] Clinical Fraility Score: 3: Managing Well. 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 Chest Pain Symptom Assessment: Atypical Angina. Correct patient, site and procedure confirmed by cath team. Current diagnosis: Chest Pain. PERRLA. Strong, equal hand field account manager bilaterally. Lungs clear x 5 lobes. IV Site on Arrival: 20 gauge in the right anticubital. IV Fluids: 0.9% NaCl at KVO. 0 mL infused prior to labor relations representative. Pre Procedural Pulses: bilateral posterior tibial was Doppled. Pre Procedural Pulses: bilateral dorsalis pedis was Doppled. Pre Procedural Pulses: bilateral radial was 3+. Oxygen started at 2liters/min via nasal canula. right groin was prepped with chloroprep then draped in the usual sterile fashion. right radial was prepped with chloroprep then draped in the usual sterile fashion. Baseline sample Acquired. HR: 66 BPM. Physician arrived. Physician scrubbed in. Immediate Pre-Procedure Time Out. Correct Patient: Yes; Correct Procedure: Yes; Correct Site: Yes; Correct Patient Position: Yes; Correct Supplies: Yes; Dried Flammable Prep: Yes; Blood Products Available: N/A;. Lidocaine 1% infiltrated to the right radial. Arterial access obtained. Dr. Headley consulting with the patients family about hemoglobin results. Blood drawn and sent to lab. Side port of sheath attached to Normal Saline flush at KVO to maintain patency. Lab called with results. Hemoglobin is 7.0. Dr. Headley called and consulted with Dr. Caicedo. We will procede with a diagnostic cath. Dr. Headley consulting with the patients daughter about proceding with the procedure. A 5 marshallese Guillermo catheter in over wire. Multiple views taken of left coronary artery. Catheter redirected to the RCA. Catheter removed over the exchange wire. A 5 marshallese JR4 catheter in over wire. EDP Sample taken: LV 120/6,26; HR: 66 BPM; SpO2: 97%. Pullback taken: LV Off; AO Off; Mean: , Peak to Peak: , SEP: ; HR: 68 BPM; SpO2: 97%. Multiple views taken of right coronary artery. Catheter removed over the exchange wire. Post Procedure: Pulses reassessed and unchanged. PERRLA. Strong, equal hand field account manager bilaterally. No VTE prophylaxis required. Medication's Wasted: Lidocaine 1% = 3 mL. A TR Band was successful obtaining hemostatsis at the Right Radial artery insertion site. Lab arrived to draw a type and screen. Medication's Wasted: Nitro = 49.8 mg. Total IV fluids: 391 mL. Medication's Wasted: Heparin = 4500 units. Post-op diagnosis: Multi Vessel CAD. Complications: None. Estimated blood loss: 5mL-10mL. Responsiveness - Normal response to verbal stimuli; alert and oriented, PERRLA. Airway - Unaffected, no intervention required; spontaneous ventilation. Circulation: W/N/L, pulses unchanged. Nausea/Vomiting: No. Vital chart was stopped. Procedure completed. Patient transferred by stretcher to CPRU. Access Site Site: Right Radial artery Sheath Size: 5 Fr Hemostasis Method: TR Band Hemostasis Success: Successful Procedure Medications Start: 7:07 AM Stop: 7:07 AM Medication: Versed Amount: 1 mg Route: I.V. Start: 7:07 AM Stop: 7:07 AM Medication: Fentanyl Amount: 50 mcg Route: I.V. Start: 7:11 AM Stop: 7:11 AM Medication: Versed Amount: 1 mg Route: I.V. Start: 7:22 AM Stop: 7:22 AM Medication: Nitrogylcerin Amount: 200 mcg Route: I.A. Start: 7:29 AM Stop: 7:29 AM Medication: 0.9% Saline Amount: 250 ml Route: I.V. bolus Start: 7:36 AM Stop: 7:36 AM Medication: Verapamil Amount: 5 mg Route: I.A. Start: 7:37 AM Stop: 7:37 AM Medication: Heparin Amount: 1500 units Route: I.V. I, the attending physician, have reviewed and verified all procedure medications. Yes, all medications given per verbal order History/Risk Factors Hypertension: Yes Dyslipidemia: Yes Peripheral Arterial Disease (PAD): No Myocardial Infarction (CA): Yes Obesity: No Renal Disease: No Tobacco Use: Current/Recent(w/in 1 year) Prior Interventions PCI: No CABG: No Valve Surgery: No Report Signatures Finalized by Dr Hector Headley MD [facility] on 05/14/2023 09:13 AM
[2023-05-14] MEDS: diphenhydrAMINE 50 mg Capsule PO (06:05)
[2023-05-14 06:35] LABS: Glucose Point of Care 89 mg/dL (70-110)
--- NOTE | 2023-05-14 07:00 | P.HPUD_ITS ---
Surgery/Procedure H&P Update DATE OF PROCEDURE: May 14, 2023 DATE H&P PERFORMED: 04/30/23 H&P UPDATE INFORMATION: I have reviewed H&P completed within last 30 days, I have examined patient prior to procedure and Changes to prior documentation as noted here (bilateral scattered expiratory wheezing) PRIMARY INDICATION FOR PROCEDURE: Chest pain, Abnormal MPI/ multiple risk factors PLANNED PROCEDURE: Operation Date: 05/14/23 07:00 Proposed Procedures p [facility] w w/w/o 55575<r94.39(Left) - Hector Headley MD PATIENT REASSESSED PRIOR TO SEDATION, WITH NO CHANGE NOTED: Yes PHYSICAL EXAM: alert, oriented x 3 and clear to auscultation bilaterally (expiratory wheezing as mentioned above) AIRWAY EVAL/ANESTHESIA PLAN: normal airway, see other exam findings, ASA III, Monitored Anesthesia, Local Anesthesia, Risks, benefits & alternatives of sedation and/or procedure discussed and Patient agrees to continue as planned
[2023-05-14 07:29] LABS: Basophils # 0.1 10^3/uL (0.0-0.1); Basophils % 1.2 %; Eosinophils # 0.3 10^3/uL (0.0-0.8); Eosinophils % 4.7 %; Hematocrit 26.2 % (37-53); Lymphocytes # 1.4 10^3/uL (0.8-4.8); Mean Corpuscular HGB Conc 26.7 g/dL (30-55); Mean Corpuscular Hemoglobin 20.8 pg (27-33); Mean Corpuscular Volume 77.7 fl (82-101); Mean Platelet Volume 9.8 fL (7.4-10.4); Monocytes # 0.6 10^3/uL (0.2-0.9); Monocytes % 9.2 %; Neutrophils # 4.34 10^3/uL (1.8-7.7); Neutrophils % 64.5 %; Nucleated Red Blood Cells % 0 %; Platelet Count 185 10^3/cmm (157-399); Red Blood Count 3.37 10^6/uL (3.85-5.65); Red Cell Distribution Width 19.9 % (12.1-15.1); White Blood Count 6.74 10^3/uL (3.29-11.43)
--- NOTE | 2023-05-14 08:01 | SUR.EXTENDED ---
Received the patient back from the cardiovascular lab director via cot s/p Diagnostic LHC . A & 0 x 3. surveillance monitor placed and vital signs obtained. TR band x 2 intact to the right wrist. No bleeding or hematoma noted. Palpable radial pulse. No other assessment changes noted from pre cath assessment. Family at bedside. No concerns voiced at this time. 2 units of PRBC's have been ordered and need to be transfused citlaly. Will transfer to room 112-2 after recovery. A CD of the cath images will be sent in the patient's chart.
--- NOTE | 2023-05-14 08:32 | SUR.EXTENDED ---
Patient transferred via wheelchair to room 112-2. Bedside report will be given by Sharlene Ortega RN. Family with patient.
[2023-05-14] MEDS: omega-3 fatty acids 1,000 mg Capsule 1000 MG PO (08:53)
[2023-05-14] MEDS: amlodipine 5 mg Tablet PO (08:53)
[2023-05-14] MEDS: multivitamin therapeutic Tablet 1 TAB PO (08:53)
[2023-05-14] MEDS: pantoprazole DR 40 mg Tablet PO (08:54)
[2023-05-14] MEDS: cholecalciferol (vitamin D3) 1,000 unit Tablet 1000 UNIT PO (08:57)
[2023-05-14] MEDS: zinc gluconate 50 mg Tablet PO (08:57)
[2023-05-14] MEDS: atorvastatin 40 mg Tablet 80 MG PO (08:57)
[2023-05-14] MEDS: cyanocobalamin 1,000 mcg Tablet 1000 MCG PO (08:57)
[2023-05-14] MEDS: ascorbic acid 500 mg Tablet PO (08:58)
[2023-05-14] MEDS: lisinopril 20 mg Tablet 60 MG PO (09:01)
--- NOTE | 2023-05-14 10:11 | P.CONIM_ITS ---
Providers/Reason For Consult Consulting Physician/Specialty*: Andrew Sadler MD, hospitalist Reason for Consult*: Anemia Requesting Physician: Dr. Headley Attending Physician: Hector Headley MD Primary Care Provider: GRAHAM Mari History of Present Illness History of Present Illness Stew Gardner is a 72 year old male who had some issues with some chest pressure, dizziness, and increased shortness of breath. He has a past medical history of significant COPD, gastritis. Secondary to his symptomatology, and an abnormal nuclear stress test he underwent a coronary angiogram today. He was found to have significant left main disease, and circumflex disease. Prior to any intervention his hemoglobin was performed and he was found to be significantly anemic. His hemoglobin was approximately 7. In January it was 10.3, April 30 7.8. He was recently put on Eliquis for possible pulmonary embolism in late December. He had seen some dark stools, but had noticed no blood in his stool, hematuria, hematemesis, or epistaxis. He reports his stool was tested for blood last week and negative. He denies any chest discomfort currently. He does take occasional ibuprofen for his back, but believes his last dosing was 3 to 4 weeks ago. Cardiology has initiated a transfusion of 2 units of packed red blood cells. Review of Systems General: Reports: 10 or more systems reviewed and unremarkable except in HPI and below Card: Reports: chest pain; Denies: swelling of feet/ankles Resp: Reports: dyspnea GI: Reports: melena; Denies: abdominal pain, hematemesis or hematochezia Medications/Allergies Home Medications Medication Instructions Recorded Confirmed Last Taken Type albuterol sulfate 2.5 mg/3 mL 2.5 mg inhalation BID PRN 11/04/19 05/11/23 05/14/23 History (0.083 %) solution for nebulization Shortness Of Breath albuterol sulfate 90 mcg/actuation 2 puff inhalation Q4H PRN 11/04/19 05/11/23 05/14/23 History aerosol inhaler (Ventolin HFA) Shortness Of Breath omeprazole 40 mg capsule,delayed 40 mg PO DAILY 11/04/19 05/11/23 05/13/23 History release lisinopril 40 mg tablet 60 mg PO DAILY 01/10/22 05/11/23 05/13/23 History rosuvastatin 20 mg tablet 20 mg PO DAILY 01/10/22 05/11/23 05/13/23 History amlodipine 5 mg tablet 5 mg PO DAILY 01/02/23 05/11/23 05/13/23 History apixaban 5 mg tablet (Eliquis) 5 mg PO BID 01/02/23 05/11/23 05/10/23 History ascorbic acid (vitamin C) 500 mg 500 mg PO DAILY 01/02/23 05/11/23 05/13/23 History tablet (Vitamin C) azelastine 137 mcg (0.1 %) nasal 1 spray intranasal BID PRN unknown 01/02/23 05/11/23 05/13/23 History spray aerosol cholecalciferol (vitamin D3) 25 25 mcg PO DAILY 01/02/23 05/11/23 05/13/23 History mcg (1,000 unit) tablet (Vitamin D3) cyanocobalamin (vitamin B-12) 1,000 mcg PO DAILY 01/02/23 05/11/23 05/13/23 History 1,000 mcg tablet (Vitamin B-12) glyburide 5 mg tablet 5 mg PO DAILY 01/02/23 05/11/23 05/13/23 History methylsulfonylmethane 1,000 mg 1,000 mg PO DAILY 01/02/23 05/11/23 05/13/23 History tablet (MSM) multivitamin 1 tab PO DAILY 01/02/23 05/11/23 05/13/23 History niacin 500 mg tablet 500 mg PO DAILY 01/02/23 05/11/23 05/13/23 History omega-3 fatty acids 1,000 mg 1,000 mg PO DAILY 01/02/23 05/11/23 05/13/23 His tory capsule potassium gluconate 595 mg (99 mg) 595 mg PO DAILY 01/02/23 05/11/23 05/13/23 H istory tablet sildenafil 50 mg tablet 50 mg PO PRN PRN Erectile 01/02/23 05/11/23 Unknown Hi story Dysfunction zinc acetate 50 mg (zinc) capsule 50 mg PO DAILY 01/02/23 05/11/23 05/13/23 History fluticasone fur. 100 mcg-umeclid 1 inh inhalation DAILY #60 ea 02/16/23 05/11/23 05/13/23 Rx 62.5 mcg-vilant 25 mcg inhalat.powder (Trelegy Ellipta) enoxaparin 80 mg/0.8 mL 80 mg (0.8 mL) SUBCUT Q12H #3.2 mL 05/11/23 05/14/23 05/13/23 09:00 Rx subcutaneous syringe (Lovenox) Allergies Allergy/AdvReac Type Severity Reaction Status Date / Time insect venom Allergy Severe ALGY-Anaphy Verified 04/30/23 09:14 laxis Tetanus Vaccines and Toxoid Allergy ALGY-Anaphy Verified 04/30/23 09:14 laxis Current Medications Generic Name Dose Route Start Last Admin Trade Name Freq PRN Reason Stop Dose Admin Amlodipine Besylate 5 mg 05/14/23 09:00 05/14/23 08:53 Amlodipine 5 Mg Tablet PO 5 mg DAILY YAYA Administration Ascorbic Acid 500 mg 05/14/23 09:00 05/14/23 08:58 Ascorbic Acid 500 Mg Tablet PO 500 mg DAILY YAYA Administration Atorvastatin Calcium 80 mg 05/14/23 09:00 05/14/23 08:57 Atorvastatin 40 Mg Tablet PO 80 mg DAILY YAYA Administration Cyanocobalamin 1,000 mcg 05/14/23 09:00 05/14/23 08:57 Cyanocobalamin 1,000 Mcg Tablet PO 1,000 mcg DAILY YAYA Administration Sodium Chloride 1,000 mls @ 50 mls/hr 05/14/23 06:00 05/14/23 06:05 Sodium Chloride 0.9% IV 05/15/23 01:59 Not Given .Q20H ONE Lisinopril 60 mg 05/14/23 09:00 05/14/23 09:01 Lisinopril 20 Mg Tablet PO 60 mg DAILY YAYA Administration Multivitamins Therapeutic 1 tab 05/14/23 09:00 05/14/23 08:53 Multivitamin Therapeutic Tablet PO 1 tab DAILY YAYA Administration Non-Formulary Medication 500 mg 05/14/23 09:00 05/14/23 09:04 Niacin PO Not Given DAILY YAYA Non-Formulary Medication 595 mg 05/14/23 09:00 05/14/23 09:04 Potassium Gluconate PO Not Given DAILY YAYA Rvohk-0-Vith Ethyl Esters 1,000 mg 05/14/23 09:00 05/14/23 08:53 Thorp-3 Fatty Acids 1,000 Mg Capsule PO 1,000 mg DAILY YAYA Administration Vitamin D 1,000 unit 05/14/23 09:00 05/14/23 08:57 Cholecalciferol (Vitamin D3) 1,000 Unit Tablet PO 1,000 unit DAILY YAYA Administration Zinc Gluconate 50 mg 05/14/23 09:00 05/14/23 08:57 Zinc Gluconate 50 Mg Tablet PO 50 mg DAILY YAYA Administration PFSH Acute PFSH: Medical History (Updated 05/14/23 @ 10:17 by Andrew Sadler MD) COPD (chronic obstructive pulmonary disease) Diabetes mellitus DVT (deep venous thrombosis) Hyperlipidemia Hypertension Pulmonary embolism Surgical History H/O spinal fusion History of cholecystectomy History of colonoscopy History of umbilical hernia repair Family History Father CAD (coronary artery disease) Mother CAD (coronary artery disease) Diabetes Parkinsons disease Other Autoimmune disease Social History Smoking and tobacco status: current every day smoker (2 cigar cigarrettes per day) cigars Cigars smoked per week: 14 Years smoked cigars: 10 Second hand smoke exposure: Yes Smoking risk assessment/counseling performed?: Yes Alcohol intake: never Counseling given: No Substance/Drug Use: never Counseling given: No Lives independently: Yes Household members: spouse Marital status: 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 Family members are in the room with him. HEENT: Atraumatic normocephalic. Pupils equally round. Neck is supple no lymphadenopathy thyromegaly Cardiovascular regular rate and rhythm without murmur no S3 or S4 Lungs bilateral expiratory wheezing. Fair air movement bilaterally Abdomen soft nontender positive bowel sounds. No obvious organomegaly exam is deferred Extremities no cyanosis clubbing or edema Skin no rash Neuro no obvious focal deficits. Data 05/14/23 07:20 Other Labs: I have ordered an anemia panel, stool Hemoccult, CMP, follow-up hemoglobin following blood transfusion. I have ordered a baseline EKG secondary to his heart disease. TSH was ordered. I have conferred and discussed this case with cardiology as well as general surgery. A&P Assessment and plan (1) Anemia: Patient presents with significant anemia. This is microcytic and likely iron deficient. However his RDW is elevated, so full anemia panel will be done. 2 units of packed red blood cells have been ordered by cardiology secondary to his symptomatic anemia. This is appropriate. Check hemoglobin 30 minutes following transfusion Check iron, TIBC, ferritin, B12, folate Repeat stool Hemoccults in house. Patient indicates they were negative when done about a week ago. Start Protonix 40 mg IV every 12 hours Surgery consult for possible EGD. This may be needed to delineate to potential bleeding source prior to placement of any drug-eluting stent for his atherosclerotic disease. Hold his Eliquis. There was concern of PE in late December. Repeat scan done approximately 1 month later demonstrated no PE, no DVT. Differential diagnosis also included possible artifact. Secondary to his significant anemia Eliquis is contraindicated at this time. This is a high risk situation for the patient considering his severe anemia, significant coronary disease, in the face of his severe COPD. CBC, CMP tomorrow CMP today. Doubt hemolysis. (2) Coronary artery disease: Patient with significant coronary artery disease found on angiogram today Initiate aspirin 81 mg daily Continue statin Cardiology will determine if low-dose beta-parish is indicated. I would like to monitor his heart rate a little bit further before initiation of this. Likely will need intervention soon, following evaluation of bleeding (3) Pulmonary embolism: See notations above under anemia (4) COPD (chronic obstructive pulmonary disease): Patient with baseline COPD, still actively smoking tobacco. Budesonide twice daily DuoNeb as needed (5) Diabetes mellitus: Hold oral sulfonylurea while hospitalized Last A1c less than 6 Monitor sugars in the morning. Will change to consistent carb diet, start sliding scale insulin if blood sugar increasing Plan Multiple other medical problems as outlined in past medical history Full code. Discussed with patient and family in detail SCDs for DVT prophylaxis. Anticoagulation contraindicated secondary to severe anemia Consult Attestations Medical Necessity Statement: As per primary Diagnoses Anemia D64.9 Coronary artery disease I25.10 Pulmonary embolism I26.99 COPD (chronic obstructive pulmonary disease) J44.9 Diabetes mellitus E11.9 Time Spent (min) 45
--- NOTE | 2023-05-14 10:30 | ECG_ITS ---
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 Measurements Intervals [place] Rate: 66 P: 62 LA: 147 QRS: 26 QRSD: 104 T: 56 QT: 414 QTc: 435 Interpretive Statements SINUS RHYTHM MODERATE ST DEPRESSION [0.05+ mV ST DEPRESSION] Compared to ECG 01/29/2023 02:31:28 ST (T wave) deviation now present Supraventricular rhythm no longer present Myocardial infarct finding no longer present Electronically Signed On 05-14-2023 16:04:37 CDT by Huang Caicedo M.D. [email or web address]
[2023-05-14 10:59] LABS: Alanine Aminotransferase 9 U/L (0-41); Albumin Level 3.4 g/dL (3.5-5.2); Alkaline Phosphatase 61 U/L (40-130); Anion Gap 11.4 (5-19); Aspartate Amino Transferase 17 U/L (0-40); Blood Urea Nitrogen 10 mg/dL (8-23); Calcium 7.8 mg/dL (8.5-10.5); Carbon Dioxide 24 mmol/L (22-29); Chloride 108 mmol/L (98-107); Ferritin 24 ng/mL (30-400); Glucose 74 mg/dL (65-115); Iron 14 ug/dL (59-158); Osmolality Calculated 288 mOsm/kg (285-295); Percent Saturation 4.4 % (20-50); Potassium 3.4 mmol/L (3.5-5.1); Sodium 140 mmol/L (136-145); Thyroid Stimulating Hormone 1.63 uIU/mL (0.27-4.20); Total Bilirubin 0.6 mg/dL (0.15-1.2); Total Iron Binding Capacity 315 mcg/dl; Total Protein 5.4 g/dL (6.6-8.7); Unsaturated Iron Binding 301 ug/dL (112-347); Vitamin B12 690 pg/mL (232-1245)
[2023-05-14 11:18] LABS: Folate Level > 20.0 ng/mL (4.5-32.2)
[2023-05-14] MEDS: pantoprazole 40 mg SDV IVP ×2 (11:27→23:26)
[2023-05-14] MEDS: ipratropium-albuterol 3 mL Neb INHALATION ×3 (12:30→19:46)
--- NOTE | 2023-05-14 13:05 | P.CONIM_ITS ---
Providers/Reason For Consult Consulting Physician/Specialty*: Dr. Chau Downey, DO/General surgery Reason for Consult*: Anemia and melena Attending Physician: Hector Headley MD Primary Care Provider: GRAHAM Mari History of Present Illness History of Present Illness Stew Gardner is a 72 year old male who is currently in the hospital for chest pressure and increased shortness of breath. He was found to be anemic and was transfused 2 units of PRBCs. He reports that he does occasionally have black stools. He has a history of gastritis. He denies any abdominal pain nausea or emesis. General surgery was consulted for possible EGD. He takes Eliquis for previous suspected pulmonary embolism Review of Systems General: Reports: 10 or more systems reviewed and unremarkable except in HPI and below Medications/Allergies Home Medications Medication Instructions Recorded Confirmed Last Taken Type albuterol sulfate 2.5 mg/3 mL 2.5 mg inhalation BID PRN 11/04/19 05/11/23 05/14/23 History (0.083 %) solution for nebulization Shortness Of Breath albuterol sulfate 90 mcg/actuation 2 puff inhalation Q4H PRN 11/04/19 05/11/23 05/14/23 History aerosol inhaler (Ventolin HFA) Shortness Of Breath omeprazole 40 mg capsule,delayed 40 mg PO DAILY 11/04/19 05/11/23 05/13/23 History release lisinopril 40 mg tablet 60 mg PO DAILY 01/10/22 05/11/23 05/13/23 History rosuvastatin 20 mg tablet 20 mg PO DAILY 01/10/22 05/11/23 05/13/23 History amlodipine 5 mg tablet 5 mg PO DAILY 01/02/23 05/11/23 05/13/23 History apixaban 5 mg tablet (Eliquis) 5 mg PO BID 01/02/23 05/11/23 05/10/23 History ascorbic acid (vitamin C) 500 mg 500 mg PO DAILY 01/02/23 05/11/23 05/13/23 History tablet (Vitamin C) azelastine 137 mcg (0.1 %) nasal 1 spray intranasal BID PRN unknown 01/02/23 05/11/23 05/13/23 History spray aerosol cholecalciferol (vitamin D3) 25 25 mcg PO DAILY 01/02/23 05/11/23 05/13/23 History mcg (1,000 unit) tablet (Vitamin D3) cyanocobalamin (vitamin B-12) 1,000 mcg PO DAILY 01/02/23 05/11/23 05/13/23 History 1,000 mcg tablet (Vitamin B-12) glyburide 5 mg tablet 5 mg PO DAILY 01/02/23 05/11/23 05/13/23 History methylsulfonylmethane 1,000 mg 1,000 mg PO DAILY 01/02/23 05/11/23 05/13/23 History tablet (MSM) multivitamin 1 tab PO DAILY 01/02/23 05/11/23 05/13/23 History niacin 500 mg tablet 500 mg PO DAILY 01/02/23 05/11/23 05/13/23 History omega-3 fatty acids 1,000 mg 1,000 mg PO DAILY 01/02/23 05/11/23 05/13/23 History capsule potassium gluconate 595 mg (99 mg) 595 mg PO DAILY 01/02/23 05/11/23 05/13/23 History tablet sildenafil 50 mg tablet 50 mg PO PRN PRN Erectile 01/02/23 05/11/23 Unknown History Dysfunction zinc acetate 50 mg (zinc) capsule 50 mg PO DAILY 01/02/23 05/11/23 05/13/23 Hist ory fluticasone fur. 100 mcg-umeclid 1 inh inhalation DAILY #60 ea 02/16/23 05/11/23 05/13/23 Rx 62.5 mcg-vilant 25 mcg inhalat.powder (Trelegy Ellipta) enoxaparin 80 mg/0.8 mL 80 mg (0.8 mL) SUBCUT Q12H #3.2 mL 05/11/23 05/14/23 05/13/23 09:00 Rx subcutaneous syringe (Lovenox) Allergies Allergy/AdvReac Type Severity Reaction Status Date / Time insect venom Allergy Severe ALGY-Anaphy Verified 04/30/23 09:14 laxis Tetanus Vaccines and Toxoid Allergy ALGY-Anaphy Verified 04/30/23 09:14 laxis Current Medications Generic Name Dose Route Start Last Admin Trade Name Freq PRN Reason Stop Dose Admin Albuterol/Ipratropium 3 ml 05/14/23 12:00 05/14/23 12:30 Ipratropium-Albuterol 3 Ml Neb INHALATION 3 ml QID.RESPIRATORY YAYA Administration Amlodipine Besylate 5 mg 05/14/23 09:00 05/14/23 08:53 Amlodipine 5 Mg Tablet PO 5 mg DAILY YAYA Administration Ascorbic Acid 500 mg 05/14/23 09:00 05/14/23 08:58 Ascorbic Acid 500 Mg Tablet PO 500 mg DAILY YAYA Administration Atorvastatin Calcium 80 mg 05/14/23 09:00 05/14/23 08:57 Atorvastatin 40 Mg Tablet PO 80 mg DAILY YAYA Administration Cyanocobalamin 1,000 mcg 05/14/23 09:00 05/14/23 08:57 Cyanocobalamin 1,000 Mcg Tablet PO 1,000 mcg DAILY YAYA Administration Sodium Chloride 1,000 mls @ 50 mls/hr 05/14/23 06:00 05/14/23 06:05 Sodium Chloride 0.9% IV 05/15/23 01:59 Not Given .Q20H ONE Lisinopril 60 mg 05/14/23 09:00 05/14/23 09:01 Lisinopril 20 Mg Tablet PO 60 mg DAILY YAYA Administration Multivitamins Therapeutic 1 tab 05/14/23 09:00 05/14/23 08:53 Multivitamin Therapeutic Tablet PO 1 tab DAILY YAYA Administration Non-Formulary Medication 500 mg 05/14/23 09:00 05/14/23 09:04 Niacin PO Not Given DAILY YAYA Non-Formulary Medication 595 mg 05/14/23 09:00 05/14/23 09:04 Potassium Gluconate PO Not Given DAILY YAYA Ofghf-4-Ulty Ethyl Esters 1,000 mg 05/14/23 09:00 05/14/23 08:53 [place]-3 Fatty Acids 1,000 Mg Capsule PO 1,000 mg DAILY YAYA Administration Pantoprazole Sodium 40 mg 05/14/23 10:15 05/14/23 11:27 Pantoprazole 40 Mg Sdv IVP 40 mg Q12H YAYA Administration Vitamin D 1,000 unit 05/14/23 09:00 05/14/23 08:57 Cholecalciferol (Vitamin D3) 1,000 Unit Tablet PO 1,000 unit DAILY YAYA Administration Zinc Gluconate 50 mg 05/14/23 09:00 05/14/23 08:57 Zinc Gluconate 50 Mg Tablet PO 50 mg DAILY YAYA Administration PFSH Acute PFSH: Medical History COPD (chronic obstructive pulmonary disease) Diabetes mellitus DVT (deep venous thrombosis) Hyperlipidemia Hypertension Pulmonary embolism Surgical History H/O spinal fusion History of cholecystectomy History of colonoscopy History of umbilical hernia repair Family History Father CAD (coronary artery disease) Mother CAD (coronary artery disease) Diabetes Parkinsons disease Other Autoimmune disease Social History Smoking and tobacco status: current every day smoker (2 cigar cigarrettes per day) cigars Cigars smoked per week: 14 Years smoked cigars: 10 Second hand smoke exposure: Yes Smoking risk assessment/counseling performed?: Yes Alcohol intake: never Counseling given: No Substance/Drug Use: never Counseling given: No Lives independently: Yes Household members: spouse Marital status: 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 Ears : Pinnae and external canal are normal. Hearing is normal. Eyes : PERRLA, Sclera and injection are normal. No conjunctival discharge. Nose : Mucous membranes are without erythema. Throat : buccal mucosa is normal, gums are without significant recession or hypertrophy. Lungs : Equal chest rise bilaterally, no use of accessory muscles, trachea is midline. Cor : Rate and rhythm are normal. Abdomen : Soft, ND, NT, no g/r/m Extremities : No edema, no cyanosis or clubbing, dorsalis pedis pulses are present bilaterally, non-tender to palpation of calves. Upper extremities are normal bilaterally. Back : non-tender to palpation, no CVA tenderness. Neuro : CN II - XII intact, Upper and lower extremities have equal and full strength Data 05/15/23 02:45 05/15/23 02:45 A&P Assessment and plan (1) Anemia: (2) GI bleed: Plan Tomorrow for EGD The risks and benefits of the procedure, including bleeding, infection, in testinal perforation requiring surgery, missed lesion were explained to the patient. The patient is understanding of the risks and wishes to proceed. Coding Level of Care Code 80482 Diagnoses Anemia D64.9 GI bleed K92.2
[2023-05-14] MEDS: potassium chloride ER 20 mEq Tablet 40 MEQ PO (16:12)
[2023-05-14 17:23] LABS: Hematocrit 33.1 % (37-53)
[2023-05-14] MEDS: budesonide 0.5 mg/2 mL Neb INHALATION (19:46)
--- NOTE | 2023-05-14 19:55 | PM.HP ---
Providers/Chief Complaint Admitting Physician: Hector Headley MD Primary Care Provider: GRAHAM Mari Chief Complaint: R94.39 History of Present Illness Stew Gardner is a 72 year old male with a history of high blood pressure, dyslipidemia, type 2 diabetes, recurrent COPD exacerbation, presented with episodes of near syncope preceded by chest pain. He had a Myocardial perfusion imaging which he was found to be abnormal, revealing moderate area of ischemia involving the distribution of all the 3 coronary arteries. For further evaluation of the patient's cardiovascular status, a cardiac catheterization was recommended. He underwent left heart catheterization with left and right coronary angiogram today. Patient was found to have severe three-vessel coronary artery disease. He also was found to be severely anemic with a hemoglobin of 7.0. The hemoglobin dropped from 7.8 on 04/30/2023. He is being admitted to hospital for blood transfusion and GI work-up. This patient has a history of GI bleed a year ago. He had some GI work-up at that time. He did not have any active bleed. He was recently evaluated by the primary care provider and was placed on iron tablets. Patient is mainly complaining of exertional dyspnea and occasional chest discomfort. Denies any fever or chills. He has some black stools and is taking the iron tablets. No hematemesis. No abdominal pain or dysuria. The cardiac catheterization findings are as follows. Review of Systems Narrative: CONSTITUTIONAL: No fever or chills. EYES: No blurring of vision or other visual disturbances lately. ENT: No hoarseness of voice, auditory disturbances or sore throat. CARDIOVASCULAR: As mentioned above. RESPIRATORY: Shortness of breath and intermittent wheezing. Apparently he was baling hay yesterday and seems to be little more wheezing today GASTROINTESTINAL: No hematemesis or melena. GENITOURINARY: No dysuria or hematuria. INTEGUMENTARY: No skin rashes or history of skin cancer. NEURO: No transient ischemic attacks or amaurosis. PSYCHIATRIC: No history of psychosis or major depression. HEMATOLOGIC: No bleeding disorders or significant anemia. ENDOCRINE: No history of polyuria or polydipsia. MUSCULOSKELETAL: No recent joint pain or swelling. ALLERGY/IMMUNOLOGY: As mentioned above. Medications/Allergies Home Medications Medication Instructions Recorded Confirmed Last Taken Type albuterol sulfate 2.5 mg/3 mL 2.5 mg inhalation BID PRN 11/04/19 05/11/23 05/14/23 History (0.083 %) solution for nebulization Shortness Of Breath albuterol sulfate 90 mcg/actuation 2 puff inhalation Q4H PRN 11/04/19 05/11/23 05/14/23 History aerosol inhaler (Ventolin HFA) Shortness Of Breath omeprazole 40 mg capsule,delayed 40 mg PO DAILY 11/04/19 05/11/23 05/13/23 History release lisinopril 40 mg tablet 60 mg PO DAILY 01/10/22 05/11/23 05/13/23 History rosuvastatin 20 mg tablet 20 mg PO DAILY 01/10/22 05/11/23 05/13/23 History amlodipine 5 mg tablet 5 mg PO DAILY 01/02/23 05/11/23 05/13/23 History apixaban 5 mg tablet (Eliquis) 5 mg PO BID 01/02/23 05/11/23 05/10/23 History ascorbic acid (vitamin C) 500 mg 500 mg PO DAILY 01/02/23 05/11/23 05/13/23 History tablet (Vitamin C) azelastine 137 mcg (0.1 %) nasal 1 spray intranasal BID PRN unknown 01/02/23 05/11/23 05/13/23 History spray aerosol cholecalciferol (vitamin D3) 25 25 mcg PO DAILY 01/02/23 05/11/23 05/13/23 History mcg (1,000 unit) tablet (Vitamin D3) cyanocobalamin (vitamin B-12) 1,000 mcg PO DAILY 01/02/23 05/11/23 05/13/23 History 1,000 mcg tablet (Vitamin B-12) glyburide 5 mg tablet 5 mg PO DAILY 01/02/23 05/11/23 05/13/23 History methylsulfonylmethane 1,000 mg 1,000 mg PO DAILY 01/02/23 05/11/23 05/13/23 History tablet (MSM) multivitamin 1 tab PO DAILY 01/02/23 05/11/23 05/13/23 History niacin 500 mg tablet 500 mg PO DAILY 01/02/23 05/11/23 05/13/23 History omega-3 fatty acids 1,000 mg 1,000 mg PO DAILY 01/02/23 05/11/23 05/13/23 History capsule potassium gluconate 595 mg (99 mg) 595 mg PO DAILY 01/02/23 05/11/23 05/13/23 History tablet sildenafil 50 mg tablet 50 mg PO PRN PRN Erectile 01/02/23 05/11/23 Unknown History Dysfunction zinc acetate 50 mg (zinc) capsule 50 mg PO DAILY 01/02/23 05/11/23 05/13/23 History fluticasone fur. 100 mcg-umeclid 1 inh inhalation DAILY #60 ea 02/16/23 05/11/23 05/13/23 Rx 62.5 mcg-vilant 25 mcg inhalat.powder (Trelegy Ellipta) enoxaparin 80 mg/0.8 mL 80 mg (0.8 mL) SUBCUT Q12H #3.2 mL 05/11/23 05/14/23 05/13/23 09:00 Rx subcutaneous syringe (Lovenox) Allergies Allergy/AdvReac Type Severity Reaction Status Date / Time insect venom Allergy Severe ALGY-Anaphy Verified 04/30/23 09:14 laxis Tetanus Vaccines and Toxoid Allergy ALGY-Anaphy Verified 04/30/23 09:14 laxis PFSH Acute PFSH: Medical History COPD (chronic obstructive pulmonary disease) Diabetes mellitus DVT (deep venous thrombosis) Hyperlipidemia Hypertension Pulmonary embolism Surgical History H/O spinal fusion History of cholecystectomy History of colonoscopy History of umbilical hernia repair Family History Father CAD (coronary artery disease) Mother CAD (coronary artery disease) Diabetes Parkinsons disease Other Autoimmune disease Social History Smoking and tobacco status: current every day smoker (2 cigar cigarrettes per day) cigars Cigars smoked per week: 14 Years smoked cigars: 10 Second hand smoke exposure: Yes Smoking risk assessment/counseling performed?: Yes Alcohol intake: never Counseling given: No Substance/Drug Use: never Counseling given: No Lives independently: Yes Household members: spouse Marital status: 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 Not in any acute distress. HEENT: No significant pallor, icterus or lymphadenopathy.Oral cavity: There are no mucous membrane lesions. NECK: Trachea appears to be central. No masses noted. No JVD or thyromegaly appreciated. RESPIRATORY: Chest is symmetrical. No intercostals muscle retraction or any accessory muscle activation. There is no chest wall tenderness. Breath sounds are heard bilaterally. Bilateral scattered expiratory wheezing. No evidence of any consolidation. BREASTS: Deferred. HEART: The heart sounds are normal. No S3 or S4. No significant murmurs. No pericardial rub ABDOMEN: No vessel pulsations or distention. No tenderness. No organomegaly appreciated. Bowel sounds are normally heard. : Deferred. RECTAL: Deferred. LYMPHATIC: No lymphadenopathy noted in the neck. EXTREMITIES: No edema or cyanosis. No clubbing. MUSCULOSKELETAL: No acute joint deformities or swelling SKIN: There are no significant rashes or ecchymosis NEUROPSYCHIATRIC: The patient is alert and oriented x3. Appears to be in a good mood. No tremors or rigidity noted. Data 05/14/23 16:58 05/14/23 07:47 Other Labs: Laboratory Last Values WBC 6.74 10^3/uL (3.29-11.43) 05/14/23 07:20 RBC 3.37 10^6/uL (3.85-5.65) L 05/14/23 07:20 Hgb 9.50 g/dL (11.27-16.99) L D 05/14/23 16:58 Hct 33.1 % (37-53) L 05/14/23 16:58 MCV 77.7 fl (82-101) L 05/14/23 07:20 MCH 20.8 pg (27-33) L 05/14/23 07:20 MCHC 26.7 g/dL (30-55) L 05/14/23 07:20 RDW 19.9 % (12.1-15.1) H 05/14/23 07:20 Plt Count 185 10^3/cmm (157-399) 05/14/23 07:20 MPV 9.8 fL (7.4-10.4) 05/14/23 07:20 Neut % (Auto) 64.5 % 05/14/23 07:20 Lymph % (Auto) 20.0 % 05/14/23 07:20 [place] % (Auto) 9.2 % 05/14/23 07:20 Eos % (Auto) 4.7 % 05/14/23 07:20 Baso % (Auto) 1.2 % 05/14/23 07:20 Neut # (Auto) 4.34 10^3/uL (1.8-7.7) 05/14/23 07:20 Lymph # (Auto) 1.4 10^3/uL (0.8-4.8) 05/14/23 07:20 [place] # (Auto) 0.6 10^3/uL (0.2-0.9) 05/14/23 07:20 Eos # (Auto) 0.3 10^3/uL (0.0-0.8) 05/14/23 07:20 Baso # (Auto) 0.1 10^3/uL (0.0-0.1) 05/14/23 07:20 Nucleated RBC % (auto) 0 % 05/14/23 07:20 Nucleated RBCs # 0.0 /100WBC 05/14/23 07:20 Sodium 140 mmol/L (136-145) 05/14/23 07:47 Potassium 3.4 mmol/L (3.5-5.1) L 05/14/23 07:47 Chloride 108 mmol/L (98-107) H 05/14/23 07:47 Carbon Dioxide 24 mmol/L (22-29) 05/14/23 07:47 Anion Gap 11.4 (5-19) 05/14/23 07:47 BUN 10 mg/dL (8-23) 05/14/23 07:47 Creatinine 0.8 mg/dL (0.7-1.2) 05/14/23 07:47 GFR Calculation Not Reportable 05/14/23 07:47 Glucose 74 mg/dL (65-115) 05/14/23 07:47 POC Glucose 89 mg/dL (70-110) 05/14/23 06:31 Calculated Osmolality 288 mOsm/kg (285-295) 05/14/23 07:47 Calcium 7.8 mg/dL (8.5-10.5) L 05/14/23 07:47 Iron 14 ug/dL (59-158) L 05/14/23 07:47 TIBC 315 mcg/dl 05/14/23 07:47 % Saturation 4.4 % (20-50) L 05/14/23 07:47 Unsat Iron Binding 301 ug/dL (112-347) 05/14/23 07:47 Ferritin 24 ng/mL (30-400) L 05/14/23 07:47 Total Bilirubin 0.6 mg/dL (0.15-1.2) 05/14/23 07:47 AST 17 U/L (0-40) 05/14/23 07:47 ALT 9 U/L (0-41) 05/14/23 07:47 Alkaline Phosphatase 61 U/L (40-130) 05/14/23 07:47 Total Protein 5.4 g/dL (6.6-8.7) L 05/14/23 07:47 Albumin 3.4 g/dL (3.5-5.2) L 05/14/23 07:47 Globulin 2.0 g/dL (1.3-4.6) 05/14/23 07:47 Vitamin B12 690 pg/mL (232-1245) 05/14/23 07:47 Folate > 20.0 ng/mL (4.5-32.2) 05/14/23 07:47 TSH 1.63 uIU/mL (0.27-4.20) 05/14/23 07:47 Blood Type O Positive 05/14/23 07:47 Rho(D) Type Positive 05/14/23 07:47 Antibody Screen Negative 05/14/23 07:47 Crossmatch See Detail 05/14/23 07:47 Cardiac catheterization on 05/14/2023 ?1. This is a 72-year-old white male with a history of recurrent chest pain/syncope and multiple risk factors for coronary disease had a Myocardial perfusion imaging which was found to be abnormal. He was found to have moderate area of reversible defect involving the distribution of the right coronary artery left descending artery and circumflex artery. For further evaluation of his coronary status, a cardiac catheterization was recommended. Patient underwent left heart catheterization with left and right coronary angiogram today.? The findings are as follows.. ? 2. Extremely short left main.? High-grade complex lesion of around 95% at the mid LAD involving the ostium of the second diagonal.? High-grade lesion in the mid circumflex artery.? Total occlusion of the nondominant right coronary artery with a fairly good [id number] collaterals. LVEDP 26 mmHg. 1.? Myocardial perfusion imaging revealing moderate area of moderate to ?severely decreased tracer uptake in the inferior, septal and apical regions ?suggesting ischemia predominantly in the distribution of the right coronary ?artery and left anterior descending artery with some involvement of the left ?circumflex artery.? The combined ischemia represent 25% of the viable ?myocardium. ?2.? Normal LV ejection fraction of 68%. ?3.? LV wall motion analysis revealing no gross wall motion abnormalities. ?4.? LV volume, upper limit of normal ?No similar previous studies are available for comparison Echocardiogram on 01/03/2023 Normal left ventricular size and systolic function, EF 71 %. No ?regional wall motion abnormalities. ?Trace to mild tricuspid valve regurgitation. ?Normal cardiac chamber sizes. ?There is no pericardial effusion. ?There are no intracardiac masses. ?Compared to the study from 10/18/2021, there may not be a ?significant change A&P Assessment and plan (1) Severe anemia: I may go ahead and transfuse him with 2 units of packed RBCs. Had a GI endoscopy would be appropriate to further evaluate the source of bleeding. I will be consulting Dr. Derek Sadler for this. (2) 3-vessel coronary artery disease: Patient seems to have a complex high-grade lesion in the mid LAD. High-grade lesion of the mid circumflex and total occlusion of the nondominant right coronary artery in the midsegment. He may benefit from a revascularization procedure. (3) Hypertension: Currently the blood pressure is under control. May continue on the current medication. (4) Hyperlipidemia: We will continue on the current medications. (5) COPD (chronic obstructive pulmonary disease): We will continue on the current management. As needed nebulizer treatment. Plan If there is no evidence of any active bleeding, will consider PCI of the LAD and circumflex lesions. Because of the complexity of the lesion, patient may require surgical backup. We may consider transferring him to a facility where surgical backup is available. Attestations Medical Necessity Statement*: Patient may require at least a 1 midnight stay for further management of his condition Coding Level of Care Code 85939 Diagnoses Severe anemia D64.9 3-vessel coronary artery disease I25.10 Hypertension I10 Hyperlipidemia E78.5 COPD (chronic obstructive pulmonary disease) J44.9
[2023-05-15] VITALS (11 sets, daily range): BP systolic 126–152; BP diastolic 67–97; PULSE 60–74; RESP 14–25; TEMP 36.5–36.9; O2SAT 92–99
[2023-05-15 03:49] LABS: Basophils # 0.1 10^3/uL (0.0-0.1); Eosinophils # 0.3 10^3/uL (0.0-0.8); Eosinophils % 4.3 %; Hematocrit 36.4 % (37-53); Lymphocytes # 1.6 10^3/uL (0.8-4.8); Mean Corpuscular Hemoglobin 22.9 pg (27-33); Mean Corpuscular Volume 81.6 fl (82-101); Mean Platelet Volume 10.5 fL (7.4-10.4); Monocytes # 0.7 10^3/uL (0.2-0.9); Monocytes % 9.2 %; Neutrophils # 4.86 10^3/uL (1.8-7.7); Neutrophils % 63.8 %; Nucleated Red Blood Cells % 0 %; Platelet Count 186 10^3/cmm (157-399); Red Blood Count 4.46 10^6/uL (3.85-5.65); Red Cell Distribution Width 20.1 % (12.1-15.1); White Blood Count 7.62 10^3/uL (3.29-11.43)
[2023-05-15 04:09] LABS: Alanine Aminotransferase 14 U/L (0-41); Alkaline Phosphatase 85 U/L (40-130); Anion Gap 11.7 (5-19); Aspartate Amino Transferase 20 U/L (0-40); Blood Urea Nitrogen 9 mg/dL (8-23); Carbon Dioxide 26 mmol/L (22-29); Chloride 106 mmol/L (98-107); Globulin 2.8 g/dL (1.3-4.6); Glucose 93 mg/dL (65-115); Osmolality Calculated 288 mOsm/kg (285-295); Potassium 3.7 mmol/L (3.5-5.1); Sodium 140 mmol/L (136-145); Total Bilirubin 1.7 mg/dL (0.15-1.2); Total Protein 6.8 g/dL (6.6-8.7)
[2023-05-15] MEDS: ipratropium-albuterol 3 mL Neb INHALATION ×2 (07:35→15:19)
[2023-05-15] MEDS: budesonide 0.5 mg/2 mL Neb INHALATION (07:36)
--- NOTE | 2023-05-15 08:52 | PM.PN ---
Subjective Subjective: Denies any chest discomfort overnight. EGD is planned for around noon. No bowel movement overnight. No bleeding. Medications: Reviewed: Yes Vitals/I&O/Wt Last Vital Signs Temp 98.3 F 05/15/23 07:12 Pulse 63 05/15/23 07:36 Resp 16 05/15/23 07:36 BP 126/80 05/15/23 07:12 Pulse Ox 99 05/15/23 07:36 O2 Del Method Nasal Cannula 05/15/23 07:36 O2 Flow Rate 2 05/15/23 07:36 05/14/23 05/15/23 05/15/23 22:59 06:59 14:59 Intake Total 100 / 1050 0 / 1050 Output Total 600 / 600 350 / 950 500 / 500 Balance -500 / 450 -350 / 100 -500 / -500 Weight last 48 hrs Weight 81.193 kg Physical Exam Narrative: General exam no distress Neck is supple no lymphadenopathy thyromegaly Cardiovascular regular rate and rhythm without murmur no S3 or S4 Lungs still with some bilateral expiratory wheezes Abdomen soft nontender positive bowel sounds. No obvious organomegaly Extremities no cyanosis clubbing or edema Data 05/15/23 02:45 05/15/23 02:45 A&P Assessment and plan (1) Anemia: Patient presents with significant anemia. This is microcytic and likely iron deficient. However his RDW is elevated, so full anemia panel will be done. 2 units of packed red blood cells were given May 14. Hemoglobin has increased appropriately, and is 10.2 today. I do not believe he is actively bleeding currently. Anemia panel demonstrated significant iron deficiency Surgery was consulted for EGD which will be performed today. Stool Hemoccults this hospitalization pending. Patient indicates they were negative when done about a week ago. Continue Protonix 40 mg IV every 12 hours Continue to hold Eliquis. There was concern of PE in late December. Repeat scan done approximately 1 month later demonstrated no PE, no DVT. Differential diagnosis also included possible artifact. Secondary to his significant anemia Eliquis is contraindicated at this time. This is a high risk situation for the patient considering his severe anemia, significant coronary disease, in the face of his severe COPD. CBC, CMP tomorrow No evidence of hemolysis (2) Coronary artery disease: Patient with significant coronary artery disease found on angiogram today Continue aspirin 81 mg daily Continue statin Cardiology will determine if low-dose beta-parish is indicated. I would like to monitor his heart rate a little bit further before initiation of this. Likely will need intervention soon, following evaluation of bleeding (3) Pulmonary embolism: See notations above under anemia (4) COPD (chronic obstructive pulmonary disease): Patient with baseline COPD, still actively smoking tobacco. Continue budesonide twice daily DuoNeb as needed (5) Diabetes mellitus: Hold oral sulfonylurea while hospitalized Last A1c less than 6 Monitor sugars in the morning. Will change to consistent carb diet, start sliding scale insulin if blood sugar increasing Plan Multiple other medical problems as outlined in past medical history Full code. Discussed with patient and family in detail SCDs for DVT prophylaxis. Anticoagulation contraindicated secondary to severe anemia Attestations Medical Necessity Statement*: Needs continued hospitalization for further evaluation of anemia with EGD, and definitive plan for his significant severe coronary disease Diagnoses Anemia D64.9 Coronary artery disease I25.10 Pulmonary embolism I26.99 COPD (chronic obstructive pulmonary disease) J44.9 Diabetes mellitus E11.9 Time Spent (min) 23
--- NOTE | 2023-05-15 09:53 | PC.NURSE ---
9 am medications not given due to NPO status for EGD
--- NOTE | 2023-05-15 10:43 | P.PN_ITS ---
Vitals/I&O/Wt Last Vital Signs Temp 97.7 F 05/15/23 10:41 Pulse 66 05/15/23 10:41 Resp 18 05/15/23 10:41 BP 152/73 05/15/23 10:41 Pulse Ox 96 05/15/23 10:41 O2 Del Method Room Air 05/15/23 10:41 O2 Flow Rate 2 05/15/23 08:00 05/14/23 05/15/23 05/15/23 22:59 06:59 14:59 Intake Total 100 / 1050 0 / 1050 Output Total 600 / 600 350 / 950 500 / 500 Balance -500 / 450 -350 / 100 -500 / -500 Weight last 48 hrs Weight 179 lb Data 05/15/23 02:45 05/15/23 02:45 A&P Assessment and plan (1) Anemia: (2) GI bleed: Plan EGD The risks and benefits of the procedure, including bleeding, infection, intes tinal perforation requiring surgery, missed lesion were explained to the patient. The patient is understanding of the risks and wishes to proceed. Attestations Medical Necessity Statement*: Per primary Coding Level of Care Code Acute Code for Chg Fwd Diagnoses Anemia D64.9 GI bleed K92.2
[2023-05-15] MEDS: sodium chloride 0.9% 1,000 ML 30 ML IV (10:50)
--- NOTE | 2023-05-15 11:11 | ANES.PREANE2 ---
Pre-Anesthetic Assessment Height/Weight: Height 1.7 m Weight 81.193 kg Temp Pulse Resp BP Pulse Ox O2 Del Method O2 Flow Rate 97.7 F 66 18 152/73 96 Room Air 2 05/15/23 10:41 05/15/23 10:41 05/15/23 10:41 05/15/23 10:41 05/15/23 10:41 05/15/23 10:41 05/15/23 08:00 Preop Diagnosis: Anemia/GI bleed Operation Date: 05/14/23 07:00 Proposed Procedures p LHC w w/w/o 28460<r94.39(Left) - Hector Headley MD Operation Date: 05/15/23 12:00 Proposed Procedures p EGD(Not Applicable) - Chau Downey DO Familial anesthetic complications: None Was Beta Mulugeta taken within 24 hours: N/A Was Clonidine taken within 24 hours: N/A Last Intake: 21:00 Social Tobacco and No alcohol Cigars pack(s) per day Exam alert, oriented x 3, clear to auscultation bilaterally and regular rate & rhythm Airway Submandibular: within normal limits Cervical ROM: within normal limits Mallampati: Class III Dentition: false History/ROS No significant history except as noted and No significant complaints Pulmonary Chronic Obstructive Pulmonary Disease, Cough and Exertional Dyspnea CV/HEM Anemia, Coronary Artery Disease and Hypertension 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 Will send patient to [facility] for further intervention CONCLUSION: 1. No significant EKG changes with the LexiScan infusion 2. No LexiScan induced chest pain or cardiac arrhythmia 3. Normal blood pressure and heart rate response 4. Sestamibi/sestamibi perfusion scan pending; see separate report. CONCLUSIONS ?Normal left ventricular size and systolic function, EF 71 %. No ?regional wall motion abnormalities. ?Trace to mild tricuspid valve regurgitation. ?Normal cardiac chamber sizes. ?There is no pericardial effusion. ?There are no intracardiac masses. ?Compared to the study from 10/18/2021, there may not be a ?significant change None reported Hepatic None reported GI Peptic Ulcer Disease Metabolic Diabetes Mellitus and Hyperlipidemia Musc/skel Lower Back Pain and Osteoarthritis/DJD Lumbar surgery Neuropsych None reported Anesthetic Plan ASA status: 3 Anesthesia: Anesthesia Evaluation, General and MAC Risk of > 500 ml blood loss (7ml/kg in children): No Medications/Allergies Home Medications Medication Instructions Recorded Confirmed Last Taken Type albuterol sulfate 2.5 mg/3 mL 2.5 mg inhalation BID PRN 11/04/19 05/11/23 05/14/23 History (0.083 %) solution for nebulization Shortness Of Breath albuterol sulfate 90 mcg/actuation 2 puff inhalation Q4H PRN 11/04/19 05/11/23 05/14/23 History aerosol inhaler (Ventolin HFA) Shortness Of Breath omeprazole 40 mg capsule,delayed 40 mg PO DAILY 11/04/19 05/11/23 05/13/23 History release lisinopril 40 mg tablet 60 mg PO DAILY 01/10/22 05/11/23 05/13/23 History rosuvastatin 20 mg tablet 20 mg PO DAILY 01/10/22 05/11/23 05/13/23 History amlodipine 5 mg tablet 5 mg PO DAILY 01/02/23 05/11/23 05/13/23 History apixaban 5 mg tablet (Eliquis) 5 mg PO BID 01/02/23 05/11/23 05/10/23 History ascorbic acid (vitamin C) 500 mg 500 mg PO DAILY 01/02/23 05/11/23 05/13/23 History tablet (Vitamin C) azelastine 137 mcg (0.1 %) nasal 1 spray intranasal BID PRN unknown 01/02/23 05/11/23 05/13/23 History spray aerosol cholecalciferol (vitamin D3) 25 25 mcg PO DAILY 01/02/23 05/11/23 05/13/23 History mcg (1,000 unit) tablet (Vitamin D3) cyanocobalamin (vitamin B-12) 1,000 mcg PO DAILY 01/02/23 05/11/23 05/13/23 History 1,000 mcg tablet (Vitamin B-12) glyburide 5 mg tablet 5 mg PO DAILY 01/02/23 05/11/23 05/13/23 History methylsulfonylmethane 1,000 mg 1,000 mg PO DAILY 01/02/23 05/11/23 05/13/23 History tablet (MSM) multivitamin 1 tab PO DAILY 01/02/23 05/11/23 05/13/23 History niacin 500 mg tablet 500 mg PO DAILY 01/02/23 05/11/23 05/13/23 History omega-3 fatty acids 1,000 mg 1,000 mg PO DAILY 01/02/23 05/11/23 05/13/23 History capsule potassium gluconate 595 mg (99 mg) 595 mg PO DAILY 01/02/23 05/11/23 05/13/23 History tablet sildenafil 50 mg tablet 50 mg PO PRN PRN Erectile 01/02/23 05/11/23 Unknown History Dysfunction zinc acetate 50 mg (zinc) capsule 50 mg PO DAILY 01/02/23 05/11/23 05/13/23 History fluticasone fur. 100 mcg-umeclid 1 inh inhalation DAILY #60 ea 02/16/23 05/11/23 05/13/23 Rx 62.5 mcg-vilant 25 mcg inhalat.powder (Trelegy Ellipta) enoxaparin 80 mg/0.8 mL 80 mg (0.8 mL) SUBCUT Q12H #3.2 mL 05/11/23 05/14/23 05/13/23 09:00 Rx subcutaneous syringe (Lovenox) Allergies Allergy/AdvReac Type Severity Reaction Status Date / Time insect venom Allergy Severe ALGY-Anaphy Verified 04/30/23 09:14 laxis Tetanus Vaccines and Toxoid Allergy ALGY-Anaphy Verified 04/30/23 09:14 laxis Current Medications Generic Name Dose Route Start Last Admin Trade Name Freq PRN Reason Stop Dose Admin Albuterol/Ipratropium 3 ml 05/14/23 12:00 05/15/23 07:35 Ipratropium-Albuterol 3 Ml Neb INHALATION 3 ml QID.RESPIRATORY YAYA Administration Amlodipine Besylate 5 mg 05/14/23 09:00 05/14/23 08:53 Amlodipine 5 Mg Tablet PO 5 mg DAILY YAYA Administration Ascorbic Acid 500 mg 05/14/23 09:00 05/14/23 08:58 Ascorbic Acid 500 Mg Tablet PO 500 mg DAILY YAYA Administration Atorvastatin Calcium 80 mg 05/14/23 09:00 05/14/23 08:57 Atorvastatin 40 Mg Tablet PO 80 mg DAILY YAYA Administration Budesonide 0.5 mg 05/14/23 20:00 05/15/23 07:36 Budesonide 0.5 Mg/2 Ml Neb INHALATION 0.5 mg BID.RESPIRATORY YAYA Administration Cyanocobalamin 1,000 mcg 05/14/23 09:00 05/14/23 08:57 Cyanocobalamin 1,000 Mcg Tablet PO 1,000 mcg DAILY YAYA Administration Sodium Chloride 1,000 mls @ 30 mls/hr 05/15/23 10:45 05/15/23 10:50 Sodium Chloride 0.9% IV 05/16/23 10:44 30 mls/hr .Q24H YAYA Administration Lisinopril 60 mg 05/14/23 09:00 05/14/23 09:01 Lisinopril 20 Mg Tablet PO 60 mg DAILY YAYA Administration Multivitamins Therapeutic 1 tab 05/14/23 09:00 05/14/23 08:53 Multivitamin Therapeutic Tablet PO 1 tab DAILY YAYA Administration Non-Formulary Medication 500 mg 05/14/23 09:00 05/15/23 10:25 Niacin PO Not Given DAILY YAYA Non-Formulary Medication 595 mg 05/14/23 09:00 05/15/23 10:25 Potassium Gluconate PO Not Given DAILY YAYA Mgjrk-4-Pkhd Ethyl Esters 1,000 mg 05/14/23 09:00 05/14/23 08:53 [place]-3 Fatty Acids 1,000 Mg Capsule PO 1,000 mg DAILY YAYA Administration Pantoprazole Sodium 40 mg 05/14/23 10:15 05/14/23 23:26 Pantoprazole 40 Mg Sdv IVP 40 mg Q12H YAYA Administration Vitamin D 1,000 unit 05/14/23 09:00 05/14/23 08:57 Cholecalciferol (Vitamin D3) 1,000 Unit Tablet PO 1,000 unit DAILY YAYA Administration Zinc Gluconate 50 mg 05/14/23 09:00 05/14/23 08:57 Zinc Gluconate 50 Mg Tablet PO 50 mg DAILY YAYA Administration PFSH Anesthesia Medical History COPD (chronic obstructive pulmonary disease) Diabetes mellitus DVT (deep venous thrombosis) Hyperlipidemia Hypertension Pulmonary embolism Surgical History H/O spinal fusion History of cholecystectomy History of colonoscopy History of umbilical hernia repair Family History Father CAD (coronary artery disease) Mother CAD (coronary artery disease) Diabetes Parkinsons disease Other Autoimmune disease Social History Smoking and tobacco status: current every day smoker (2 cigar cigarrettes per day) cigars Cigars smoked per week: 14 Years smoked cigars: 10 Second hand smoke exposure: Yes Smoking risk assessment/counseling performed?: Yes Alcohol intake: never Counseling given: No Substance/Drug Use: never Counseling given: No Lives independently: Yes Household members: spouse Marital status: 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 Do you think of yourself as: Straight/Heterosexual Current gender identity: Male Data Anesthesia 05/15/23 02:45 05/15/23 02:45 Short CBC 05/14/23 05/14/23 05/15/23 Range/Units 07:20 16:58 02:45 WBC 6.74 7.62 (3.29-11.43) 10^3/uL Hgb 7.00 L 9.50 L D 10.20 L (11.27-16.99) g/dL Hct 26.2 L 33.1 L 36.4 L (37-53) % MCV 77.7 L 81.6 L D (82-101) fl Plt Count 185 186 (157-399) 10^3/cmm Neut % (Auto) 64.5 63.8 % Neut # (Auto) 4.34 4.86 (1.8-7.7) 10^3/uL BMP 05/14/23 05/15/23 07:47 02:45 Sodium 140 140 Potassium 3.4 L 3.7 Chloride 108 H 106 Carbon Dioxide 24 26 BUN 10 9 Creatinine 0.8 0.8 Glucose 74 93 Calcium 7.8 L 9.0 Liver Function 05/14/23 05/15/23 Range/Units 07:47 02:45 Total Bilirubin 0.6 1.7 H (0.15-1.2) mg/dL AST 17 20 (0-40) U/L ALT 9 14 (0-41) U/L Alkaline Phosphatase 61 85 (40-130) U/L Albumin 3.4 L 4.0 (3.5-5.2) g/dL Blood Bank 05/14/23 07:47 Blood Type O Positive Rho(D) Type Positive Antibody Screen Negative Cardiac Studies: Echocardiogram 01/02/23 Sestamibi Stress Test (Cardiology) 04/23/23 Cardiac Event Monitor 03/14/23
[2023-05-15 11:23] LABS: Glucose Point of Care 97 mg/dL (70-110)
[2023-05-15] MEDS: multivitamin therapeutic Tablet 1 TAB PO (13:52)
[2023-05-15] MEDS: ascorbic acid 500 mg Tablet PO (13:52)
[2023-05-15] MEDS: zinc gluconate 50 mg Tablet PO (13:52)
[2023-05-15] MEDS: atorvastatin 40 mg Tablet 80 MG PO (13:52)
[2023-05-15] MEDS: aspirin 81 mg EC Tablet PO (13:52)
[2023-05-15] MEDS: lisinopril 20 mg Tablet 60 MG PO (13:53)
[2023-05-15] MEDS: cyanocobalamin 1,000 mcg Tablet 1000 MCG PO (13:53)
[2023-05-15] MEDS: amlodipine 5 mg Tablet PO (13:53)
[2023-05-15] MEDS: cholecalciferol (vitamin D3) 1,000 unit Tablet 1000 UNIT PO (13:53)
[2023-05-15] MEDS: omega-3 fatty acids 1,000 mg Capsule 1000 MG PO (13:53)
--- NOTE | 2023-05-15 14:00 | PM.DCS ---
Discharge Providers Date of Admission: 05/14/23 08:17 Date of Discharge: May 15, 2023 Attending Provider at Admission: Hector Headley MD Attending Provider at Discharge: Hector Headley MD Consults: Dr. Andrew Sadler/Dr. Downey Primary Care Provider: GRAHAM Mari Diagnoses at Discharge Discharge Diagnosis (1) Anemia: Details from hospital stay: Possibly from the GI bleed Status: Acute (2) GI bleed: Details from hospital stay: Underwent upper endoscopy. No active bleeding was noted Status: Acute (3) Coronary artery disease: Details from hospital stay: Severe three-vessel coronary artery disease. High-grade lesions in the mid LAD, mid circumflex and total occlusion of the nondominant right coronary artery at the mid segment. Status: Acute (4) Hypertension: Details from hospital stay: Patient remained fairly under control Status: Acute (5) Hyperlipidemia: Details from hospital stay: Continue on the current medications Status: Acute (6) COPD (chronic obstructive pulmonary disease): Details from hospital stay: Fairly stable. Status: Acute Reason for Visit Reason for Visit: R94.39 Brief History: Stew Gardner is a 72 year old male with a history of high blood pressure, dyslipidemia, type 2 diabetes, recurrent COPD exacerbation, presented with episodes of near syncope preceded by chest pain.? He had a Myocardial perfusion imaging which he was found to be abnormal, revealing moderate area of ischemia involving the distribution of all the 3 coronary arteries. For further evaluation of the patient's cardiovascular status, a cardiac catheterization was recommended.? He underwent left heart catheterization with left and right coronary angiogram today.? Patient was found to have severe three-vessel coronary artery disease.? He also was found to be severely anemic with a hemoglobin of 7.0.? The hemoglobin dropped from 7.8 on 04/30/2023. He is being admitted to hospital for blood transfusion and GI work-up. This patient has a history of GI bleed a year ago.? He had some GI work-up at that time.? He did not have any active bleed.? He was recently evaluated by the primary care provider and was placed on iron tablets. Patient is mainly complaining of exertional dyspnea and occasional chest discomfort.? Denies any fever or chills.? He has some black stools and is taking the iron tablets. No hematemesis.? No abdominal pain or dysuria. The cardiac catheterization findings are as follows. Hospital Course Hospital Course Patient was admitted to hospital for blood transfusion and further management. He received 2 units of packed RBC. He underwent upper endoscopy today. Findings are as mentioned in the report. No evidence of active bleeding or ulcerations are noted. After discussions with the family and Dr. Anderson, it was decided to start the patient on a lower dose of the Eliquis Patient requires intervention for the LAD and circumflex artery lesions. Because the complexity of the lesions, we also reviewed appropriate to perform the procedure with surgical backup. Patient and the family wants to go to the [facility] in [place]. I contacted Dr. Cheng's office at the [facility] in [place]. As per request, the medical records were faxed to total as well as office. 's office will be contacting the patient regarding the appointment. Since he is remaining stable with no recurrence of chest pain, it was thought to be appropriate discharge him home. Discharge medications are as follows The dose of the Eliquis was cut back to 2.5 mg p.o. twice daily. We added metoprolol 12.5 mg p.o. twice daily Physical Exam Narrative: GENERAL: The patient is alert and oriented times three. Not in any acute distress. HEENT: No significant pallor, icterus or lymphadenopathy.Oral cavity: There are no mucous membrane lesions. NECK: Trachea appears to be central. No masses noted. No JVD or thyromegaly appreciated. RESPIRATORY: Chest is symmetrical. No intercostals muscle retraction or any accessory muscle activation. There is no chest wall tenderness. Breath sounds are heard bilaterally. Scattered expiratory wheeze no evidence of any consolidation. BREASTS: Deferred. HEART: The heart sounds are normal. No S3 or S4. No significant murmurs. No pericardial rub ABDOMEN: No vessel pulsations or distention. No tenderness. No organomegaly appreciated. Bowel sounds are normally heard. : Deferred. RECTAL: Deferred. LYMPHATIC: No lymphadenopathy noted in the neck. EXTREMITIES: No hematoma bleeding from the arterial puncture site MUSCULOSKELETAL: No acute joint deformities or swelling SKIN: There are no significant rashes or ecchymosis NEUROPSYCHIATRIC: The patient is alert and oriented x3. Appears to be in a good mood. No tremors or rigidity noted. Discharge Data Studies Completed and Pending Completed Studies During Hospitalization Category Date Time Status MEAL ATTENDANT request for service Routine Exams 05/14/23 06:00 Completed Pending at discharge Category Date Time Status BMP [Basic Metabolic Panel] AM LABS Lab 05/16/23 04:00 Ordered CBC Auto Diff [Complete Blood Count w/Auto] AM LABS Lab 05/16/23 04:00 Ordered Fecal Occult Blood [Immunochemical Fecal OCB] Routine Lab 05/14/23 10:02 Uncollected Laboratory Results WBC 7.62 10^3/uL (3.29-11.43) 05/15/23 02:45 RBC 4.46 10^6/uL (3.85-5.65) 05/15/23 02:45 Hgb 10.20 g/dL (11.27-16.99) L 05/15/23 02:45 Hct 36.4 % (37-53) L 05/15/23 02:45 MCV 81.6 fl (82-101) L D 05/15/23 02:45 MCH 22.9 pg (27-33) L D 05/15/23 02:45 MCHC 28.0 g/dL (30-55) L 05/15/23 02:45 RDW 20.1 % (12.1-15.1) H 05/15/23 02:45 Plt Count 186 10^3/cmm (157-399) 05/15/23 02:45 MPV 10.5 fL (7.4-10.4) H 05/15/23 02:45 Neut % (Auto) 63.8 % 05/15/23 02:45 Lymph % (Auto) 21.0 % 05/15/23 02:45 [place] % (Auto) 9.2 % 05/15/23 02:45 Eos % (Auto) 4.3 % 05/15/23 02:45 Baso % (Auto) 1.0 % 05/15/23 02:45 Neut # (Auto) 4.86 10^3/uL (1.8-7.7) 05/15/23 02:45 Lymph # (Auto) 1.6 10^3/uL (0.8-4.8) 05/15/23 02:45 [place] # (Auto) 0.7 10^3/uL (0.2-0.9) 05/15/23 02:45 Eos # (Auto) 0.3 10^3/uL (0.0-0.8) 05/15/23 02:45 Baso # (Auto) 0.1 10^3/uL (0.0-0.1) 05/15/23 02:45 Nucleated RBC % (auto) 0 % 05/15/23 02:45 Nucleated RBCs # 0.0 /100WBC 05/15/23 02:45 Sodium 140 mmol/L (136-145) 05/15/23 02:45 Potassium 3.7 mmol/L (3.5-5.1) 05/15/23 02:45 Chloride 106 mmol/L (98-107) 05/15/23 02:45 Carbon Dioxide 26 mmol/L (22-29) 05/15/23 02:45 Anion Gap 11.7 (5-19) 05/15/23 02:45 BUN 9 mg/dL (8-23) 05/15/23 02:45 Creatinine 0.8 mg/dL (0.7-1.2) 05/15/23 02:45 GFR Calculation Not Reportable 05/15/23 02:45 Glucose 93 mg/dL (65-115) 05/15/23 02:45 POC Glucose 97 mg/dL (70-110) 05/15/23 11:20 Calculated Osmolality 288 mOsm/kg (285-295) 05/15/23 02:45 Calcium 9.0 mg/dL (8.5-10.5) 05/15/23 02:45 Iron 14 ug/dL (59-158) L 05/14/23 07:47 TIBC 315 mcg/dl 05/14/23 07:47 % Saturation 4.4 % (20-50) L 05/14/23 07:47 Unsat Iron Binding 301 ug/dL (112-347) 05/14/23 07:47 Ferritin 24 ng/mL (30-400) L 05/14/23 07:47 Total Bilirubin 1.7 mg/dL (0.15-1.2) H 05/15/23 02:45 AST 20 U/L (0-40) 05/15/23 02:45 ALT 14 U/L (0-41) 05/15/23 02:45 Alkaline Phosphatase 85 U/L (40-130) 05/15/23 02:45 Total Protein 6.8 g/dL (6.6-8.7) D 05/15/23 02:45 Albumin 4.0 g/dL (3.5-5.2) 05/15/23 02:45 Globulin 2.8 g/dL (1.3-4.6) 05/15/23 02:45 Vitamin B12 690 pg/mL (232-1245) 05/14/23 07:47 Folate > 20.0 ng/mL (4.5-32.2) 05/14/23 07:47 TSH 1.63 uIU/mL (0.27-4.20) 05/14/23 07:47 Blood Type O Positive 05/14/23 07:47 Rho(D) Type Positive 05/14/23 07:47 Antibody Screen Negative 05/14/23 07:47 Crossmatch See Detail 05/14/23 07:47 Procedures Performed Left heart catheterization with left and right coronary angiogram Upper endoscopy Blood transfusion Vitals Last Vital Signs Temp 98.4 F 05/15/23 12:26 Pulse 71 05/15/23 12:38 Resp 16 05/15/23 12:38 BP 132/76 05/15/23 12:38 Pulse Ox 94 05/15/23 12:38 O2 Del Method Room Air 05/15/23 12:38 O2 Flow Rate 2 05/15/23 12:26 Discharge Plan Discharge Patient Disposition: Home Condition: Stable Prescriptions: New aspirin 81 mg Tablet,Delayed Release (Dr/Ec) 81 mg PO DAILY Qty: 30 0RF Eliquis 2.5 mg tablet 2.5 mg PO BID Qty: 60 0RF metoprolol tartrate 25 mg tablet 12.5 mg PO BID Qty: 30 0RF Continued rosuvastatin 20 mg tablet 20 mg PO DAILY Trelegy Ellipta 100-62.5-25 mcg blister with device 1 inh inhalation DAILY Qty: 60 1RF albuterol sulfate 2.5 mg /3 mL (0.083 %) solution for nebulization 2.5 mg inhalation BID PRN (Reason: Shortness Of Breath) omeprazole 40 mg capsule,delayed release(DR/EC) 40 mg PO DAILY albuterol sulfate [Ventolin HFA] 90 mcg/actuation HFA aerosol inhaler 2 puff INHALATION Q4H PRN (Reason: Shortness Of Breath) lisinopril 40 mg tablet 60 mg PO DAILY multivitamin Tablet 1 tab PO DAILY zinc acetate 50 mg (zinc) Capsule 50 mg PO DAILY omega-3 fatty acids 1,000 mg Capsule 1,000 mg PO DAILY glyburide 5 mg tablet 5 mg PO DAILY cyanocobalamin (vitamin B-12) [Vitamin B-12] 1,000 mcg Tablet 1,000 mcg PO DAILY amlodipine 5 mg tablet 5 mg PO DAILY ascorbic acid (vitamin C) [Vitamin C] 500 mg Tablet 500 mg PO DAILY niacin 500 mg Tablet 500 mg PO DAILY cholecalciferol (vitamin D3) [Vitamin D3] 25 mcg (1,000 unit) Tablet 25 mcg PO DAILY potassium gluconate 595 mg (99 mg) Tablet 595 mg PO DAILY azelastine 137 mcg (0.1 %) aerosol,spray 1 spray intranasal BID PRN (Reason: unknown) Rx Instructions: administer into each nostril Discontinued enoxaparin [Lovenox] 80 mg/0.8 mL syringe 80 mg SUBCUT Q12H Qty: 3.2 0RF Rx Instructions: 1 dose 9/8pm, 9/9am, 9pm, last 10am sildenafil 50 mg tablet 50 mg PO PRN PRN (Reason: Erectile Dysfunction) methylsulfonylmethane [MSM] 1,000 mg Tablet 1,000 mg PO DAILY Eliquis 5 mg Tablet 5 mg PO BID Discharge Orders: Discharge Order (Routine); Ordered 05/15/23 Ordered By: Hector Headley Referrals: Gabriela Szymanski, HYPERBARIC NURSE [Primary Care Provider] - 4-7 days (CBC in 3 to 5 days, 1 week after that, 2 weeks after that, 4 weeks after that to surveilled for anemia) Discharge Diet: Advance as tolerated Discharge Activity: Limit activity as instructed Patient Instructions: GI Discharge Instructions, Opioid Safety Activity Restrictions/Additional Instructions: Avoid any strenuous activities Patient to call the office of Dr. Dr Cheng at the [facility] in [place] to confirm the appointment Do not take the Eliquis on Sunday and Sunday for possible intervention on Sunday Make an appointment to be seen in the office in 1 month Discharge Attestations Time Spent in Discharge Care*: greater than 30 min Quality Metrics Clinical Quality Measures [ No reported AMI, CVA or VTE this stay] Coding Level of Care Code 58628 Diagnoses Anemia D64.9 GI bleed K92.2 Coronary artery disease I25.10 Hypertension I10 Hyperlipidemia E78.5 COPD (chronic obstructive pulmonary disease) J44.9
--- NOTE | 2023-05-15 14:25 | ANE.PACU2 ---
Inpatient post-anesthesia follow up: Airway intact: Yes Vital signs: Temperature 98.4 F Pulse Rate 71 Respiratory Rate 16 Blood Pressure [Le ft Arm] 128/58 Blood Pressure 132/76 Pulse Oximetry 94 Oxygen Delivery Me thod Room Air Oxygen Flow Rate 2 Fraction of Inspir ed Oxygen Hydration adequate: Yes Nausea and vomiting: No Pain level: 2 Mental status: Baseline
[2023-05-15] MEDS: metoprolol tartrate 25 mg Tablet 12.5 MG PO (17:21)
== END 2023-05-15 19:00 | disposition home or self-care (01) ==
LOC: CSU 08:25
PROVIDERS: Internal Medicine; Surgery; Admitting Provider Internal Medicine Cardiovascular Disease; PCP Nurse Practitioner Family; Visit Provider Internal Medicine Cardiovascular Disease
PROC: 0DJ08ZZ Inspection of Upper Intestinal Tract, Via Natural or Artificial Opening Endoscopic (ICD-10-PCS; CPT 43235; principal; 2023-05-15 12:00)
DX: D64.9 Anemia, unspecified (principal); K92.2 Gastrointestinal hemorrhage, unspecified; I25.10 Atherosclerotic heart disease of native coronary artery without angina pectoris; I26.99 Other pulmonary embolism without acute cor pulmonale; I10 Essential (primary) hypertension; E78.5 Hyperlipidemia, unspecified; J44.9 Chronic obstructive pulmonary disease, unspecified; J44.1 Chronic obstructive pulmonary disease with (acute) exacerbation; K44.9 Diaphragmatic hernia without obstruction or gangrene; I25.2 Old myocardial infarction; F17.210 Nicotine dependence, cigarettes, uncomplicated
CPT/HCPCS: 36415; 36416; 36430; 43235; 80053; 82607; 82728; 82746; 82962; 83540; 83550; 84443; 85014; 85018; 85025; 86850; 86900; 86920; 93005; 93458; 94640; 96361; 96365; 96367; 99152; 99153; C1769; C1887; C1894; C9113; G0378; J1644; J2250; J2704; J3010; J3490; J7030; J7626; P9016; Q0163; Q9967

== ENCOUNTER → 2023-07-02 13:21 | Outpatient (BNVA) | payer MEDICARE, SELFPAY | PROVIDERS: PCP Nurse Practitioner Family; Visit Provider Nurse Practitioner Family | DX: I25.10 Atherosclerotic heart disease of native coronary artery without angina pectoris (principal); F17.210 Nicotine dependence, cigarettes, uncomplicated; I10 Essential (primary) hypertension | CPT/HCPCS: 99213 ==

== ENCOUNTER → 2023-07-23 08:35 | Outpatient (BNVA) | payer MEDICARE, SELFPAY | PROVIDERS: PCP Nurse Practitioner Family; Visit Provider Internal Medicine Pulmonary Disease | DX: J44.9 Chronic obstructive pulmonary disease, unspecified (principal); I26.99 Other pulmonary embolism without acute cor pulmonale; I25.10 Atherosclerotic heart disease of native coronary artery without angina pectoris; Z79.01 Long term (current) use of anticoagulants; F17.290 Nicotine dependence, other tobacco product, uncomplicated | CPT/HCPCS: 99214 ==

== ENCOUNTER → 2024-01-08 10:14 | Outpatient (BNVA) | payer MEDICARE, SELFPAY | PROVIDERS: PCP Nurse Practitioner Family; Visit Provider Internal Medicine Cardiovascular Disease | DX: I25.10 Atherosclerotic heart disease of native coronary artery without angina pectoris (principal); I10 Essential (primary) hypertension; E78.49 Other hyperlipidemia; I27.82 Chronic pulmonary embolism; Z79.01 Long term (current) use of anticoagulants; F17.210 Nicotine dependence, cigarettes, uncomplicated | CPT/HCPCS: 99214 ==

== ENCOUNTER → 2024-01-21 08:37 | Outpatient (BNVA) | payer MEDICARE, SELFPAY | PROVIDERS: PCP Nurse Practitioner Family; Visit Provider Internal Medicine Pulmonary Disease | DX: J44.9 Chronic obstructive pulmonary disease, unspecified (principal); F17.290 Nicotine dependence, other tobacco product, uncomplicated; J30.9 Allergic rhinitis, unspecified; I27.82 Chronic pulmonary embolism; I25.10 Atherosclerotic heart disease of native coronary artery without angina pectoris | CPT/HCPCS: 99214 ==

== ENCOUNTER 2024-02-04 07:28 | Outpatient (CLI) | payer MEDICARE, SELFPAY ==
--- NOTE | 2024-02-04 08:00 | CT_ITS ---
WS: [id number] LDCT LUNG CANCER SCREENING HISTORY: Cancer Screen TECHNIQUE: Axial imaging performed from the apices to 1 cm below the costophrenic angles. Coronal and sagittal reformats are submitted with axial MIP series. All CT scans at [facility] use at least one of these dose optimization techniques: automated exposure control; mA and/or kV adjustment per patient size (includes targeted exams where dose is matched to clinical indication); or iterativ e reconstruction. DLP: 62.40 mGy.cm DIvol: Mean CTDIvol: 1.40 (mGy) COMPARISON: 01/29/2023 Diagnostic quality: Satisfactory Lungs: Well aerated lungs. Benign granuloma RIGHT upper lobe. No mass or pulmonary nodules. Area of f ibrosis or scarring periphery LEFT lower lobe has been noted on prior examinations dating back to 03/03. Mild chronic emphysema. Heart: Normal size heart with no pericardial effusion.. Other findings: Mild coronary artery atherosclerosis. Pulmonary arteries equal size to the aorta. Mod erate coronary artery calcifications. No pericardial or pleural effusions. Prior cholecystectomy. Adr enal glands as visualized are negative. CT/CT lung screening [id number] IMPRESSION: LUNG-RADS: 2-Benign Appearance or Behavior FOLLOW UP: 12 Month: Continue annual screening with LDCT OTHER FINDINGS (S MODIFIER): None.
== END 2024-02-04 07:29 | disposition home or self-care (01) ==
LOC: RAD 07:28
PROVIDERS: PCP Nurse Practitioner Family; Visit Provider Internal Medicine Pulmonary Disease
DX: Z12.2 Encounter for screening for malignant neoplasm of respiratory organs (principal); F17.210 Nicotine dependence, cigarettes, uncomplicated
CPT/HCPCS: 71271

== ENCOUNTER 2024-06-11 12:29 | Observation (INO) | payer MEDICARE, SELFPAY ==
[2024-06-11] VITALS (10 sets, daily range): BP systolic 131–150; BP diastolic 64–80; PULSE 41–84; RESP 16–20; TEMP 36.6; O2SAT 91–96; BMI 26.6
--- NOTE | 2024-06-11 12:39 | ECG_ITS ---
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: : 1950 Requested By: Jovani James Order Number: [id number] Reading MD: BINA OSMAN Measurements Intervals [place] Rate: 89 P: 74 AK: 141 QRS: -61 QRSD: 98 T: 77 QT: 362 QTc: 441 Interpretive Statements SINUS RHYTHM WITH OCCASIONAL VENTRICULAR PREMATURE COMPLEXES WITH OCCASIONAL SUPRAVENTRICULAR PREMATURE COMPLEXES LEFT ANTERIOR FASCICULAR BLOCK [QRS AXIS <= -45, QR IN I, RS IN II] INTERPRETATION BASED ON A DEFAULT AGE OF 40 YEARS Compared to ECG 05/14/2023 10:30:01 Ventricular premature complex(es) now present Left anterior fascicular block now present ST (T wave) deviation no longer present Electronically Signed On 06-11-2024 20:05:17 CDT by BINA OSMAN [id number] f
--- NOTE | 2024-06-11 12:51 | XRR_ITS ---
PROCEDURE INFORMATION: Exam: XR Chest Exam date and time: 06/11/2024 12:55 PM Age: 73 years old Clinical indication: Shortness of breath TECHNIQUE: Imaging protocol: Radiologic exam of the chest. Views: 1 view. Total images: 1 COMPARISON: CR XR chest 2V* [id number] 06/03/2024 11:37 AM FINDINGS: Lungs: Benign granulomatous disease of the lung is noted. Pleural spaces: Unremarkable. No pleural effusion. No pneumothorax. Heart/Mediastinum: Coronary stent noted. Bones/joints: Old left rib fracture evident. XR/XR chest 1V portable [id number] IMPRESSION: No acute cardiopulmonary process.
--- NOTE | 2024-06-11 12:57 | W.ED.SOB ---
HPI - SOB/Dyspnea General: Chief Complaint: Shortness of Breath/Dyspnea Stated Complaint: Gabriela vyas noemy stephens Time Seen by Provider: 06/11/24 12:52 History of Present Illness: HPI Narrative: 73-year-old man with a history of COPD, coronary artery disease on Plavix, history of DVT and PE but is no longer on Eliquis or Coumadin, and hypoxemic respiratory failure normally on 2 L nasal cannula as needed and at night. Over the last couple of weeks has become much more short of breath. He completed a course of steroids with his primary care provider. He had a productive cough which has improved but his breathing has become much worse. He says his breathing treatments at home are not really helping much. No known fevers. No altered mental status. Family says that he can barely walk across the room without becoming extremely dyspneic. No chest pain. No lower extremity swelling. No abdominal pain. No nausea or vomiting. He has been requiring his oxygen at all times now. He got to clinic and they sent him to the emergency room. Related Data Home Medications Medication Instructions Recorded Confirmed albuterol sulfate 90 mcg/actuation 2 puff inhalation Q4H PRN 11/04/19 06/11/24 aerosol inhaler (Ventolin HFA) Shortness Of Breath omeprazole 40 mg capsule,delayed 40 mg PO DAILY 11/04/19 06/11/24 release lisinopril 40 mg tablet 60 mg PO DAILY 01/10/22 06/11/24 rosuvastatin 20 mg tablet 20 mg PO DAILY 01/10/22 06/11/24 ascorbic acid (vitamin C) 500 mg 500 mg PO DAILY 01/02/23 06/11/24 tablet (Vitamin C) cholecalciferol (vitamin D3) 25 25 mcg PO DAILY 01/02/23 06/11/24 mcg (1,000 unit) tablet (Vitamin D3) cyanocobalamin (vitamin B-12) 1,000 mcg PO DAILY 01/02/23 06/11/24 1,000 mcg tablet (Vitamin B-12) glyburide 5 mg tablet 5 mg PO DAILY 01/02/23 06/11/24 multivitamin 1 tab PO DAILY 01/02/23 06/11/24 potassium gluconate 595 mg (99 mg) 595 mg PO DAILY 01/02/23 06/11/24 tablet clopidogrel 75 mg tablet 75 mg PO DAILY 07/02/23 06/11/24 amlodipine 2.5 mg tablet 2.5 mg PO BID 06/11/24 06/11/24 Previous Rx's Medication Instructions Recorded aspirin 81 mg tablet,delayed 81 mg PO DAILY #30 tabs 05/15/23 release metoprolol tartrate 25 mg tablet 12.5 mg (1/2 x 25 mg) PO BID #180 09/05/23 tabs albuterol sulfate 2.5 mg/3 mL 2.5 mg (3 mL) inhalation QID PRN 11/13/23 (0.083 %) solution for nebulization Shortness Of Breath #480 mL budesonide 160 mcg-glycopyr 9 2 inh inhalation BID 90 days #32.1 11/13/23 mcg-formot 4.8 mcg/actuation HFA grams inhaler (Breztri Aerosphere) Allergies Allergy/AdvReac Type Severity Reaction Status Date / Time insect venom Allergy Severe ALGY-Anaphy Verified 01/21/24 08:44 laxis Tetanus Vaccines and Toxoid Allergy ALGY-Anaphy Verified 01/21/24 08:44 laxis Review of Systems Narrative: Constitutional symptoms: Negative except as documented in HPI. Skin symptoms: Negative except as documented in HPI. Eye symptoms: Negative except as documented in HPI. ENMT symptoms: Negative except as documented in HPI. Respiratory symptoms: Negative except as documented in HPI. Cardiovascular symptoms: Negative except as documented in HPI. Gastrointestinal symptoms: Negative except as documented in HPI. Genitourinary symptoms: Negative except as documented in HPI. Musculoskeletal symptoms: Negative except as documented in HPI. Neurologic symptoms: Negative except as documented in HPI. Psychiatric symptoms: Negative except as documented in HPI. Endocrine symptoms: Negative except as documented in HPI. [facility] ED PFSH: Medical History (Updated 06/11/24 @ 14:30 by Eliezer Chowdhury MD) 3-vessel coronary artery disease Pulmonary embolism Diabetes mellitus DVT (deep venous thrombosis) Hyperlipidemia Hypertension COPD (chronic obstructive pulmonary disease) Surgical History History of umbilical hernia repair History of colonoscopy H/O spinal fusion History of cholecystectomy Family History Father CAD (coronary artery disease) Mother CAD (coronary artery disease) Diabetes Parkinson disease Other Autoimmune disease Social History Smoking and tobacco/nicotine status: current every day tobacco/nicotine user (2 cigar cigarrettes per day) cigars Cigars smoked per week: 14 Years smoked cigars: 10 Second hand smoke exposure: Yes Alcohol intake: never Substance/Drug Use: never Lives independently: Yes Household members: spouse Marital status: 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 Skin: Warm, dry. Head: Normocephalic, atraumatic. Neck: Supple, trachea midline. Eye: Extraocular movements are intact. Ears, nose, mouth and throat: Oral mucosa moist. Cardiovascular: Regular rate and rhythm, Normal peripheral perfusion. Respiratory: coarse, scattered wheeze, moderate increased wob. tachypnea, prolonged expiratory phase. breath sounds are equal, Symmetrical chest wall expansion. Gastrointestinal: Soft, Nontender, Non distended, Normal bowel sounds. Musculoskeletal: Normal ROM, no deformity. Neurological: Alert and oriented to person, place, time, and situation, No focal neurological deficit observed. Psychiatric: Cooperative, appropriate mood & affect. Course Vital Signs: Vital signs: Vital Signs Temperature 97.8 F 06/11/24 12:35 Pulse Rate 71 06/11/24 14:30 Respiratory Rate 20 H 06/11/24 13:20 Blood Pressure 133/74 06/11/24 14:30 Pulse Oximetry 95 06/11/24 14:30 Oxygen Delivery Me thod Nasal Cannula 06/11/24 14:30 Oxygen Flow Rate 2 06/11/24 14:30 MDM - SOB/Dyspnea Medical Decision Making Differential diagnosis for patient with shortness of breath includes but is not limited to and based on the above HPI, review of systems and physical exam: Pneumonia. Bronchitis. Asthma or COPD with acute exacerbation. Acute coronary syndrome / SC. Pulmonary embolism. Anxiety. Congestive heart failure. Viral infections including influenza and Covid-19. Atrial fibrillation. Anxiety. Pleural effusion. Pneumothorax. Orders placed to evaluate differential diagnosis based on the above differential, HPI and physical exam Chest x-ray: No acute process. No infiltrate. No pneumothorax. This was reviewed and interpreted by myself the ER physician. Lab Review: Laboratory results were reviewed and interpreted by myself the emergency room physician. Some leukocytosis with white count 15,000. Hemoglobin normal at 15. BUN and creatinine are normal at 13 and 0.8. Bicarb is slightly elevated at 31 which would show some compensation to his respiratory illness. Initial troponin is 49 which is at his baseline. Second troponin is pending. AB.4 with O2 sat of 94% on room air. I reviewed the patient's medical record. Reexamination: Patient still has considerable wheeze. Some increased work of breathing still. No altered mental status. No focal motor deficits. He and family agree to admission. Consultation: I spoke with Dr. Chowdhury who is on-call for the hospitalist service who agrees to admission. Assessment and plan: COPD with acute exacerbation Acute on chronic hypoxemic respiratory failure Bronchitis ?2 updrafts, IV Solu-Medrol and IV doxycycline in the emergency room -I discussed the patient with the hospitalist on-call who is admitting the patient. - Discussed findings and plan with patient. Answered any questions. - All laboratory values were reviewed and interpreted personally by myself, the ER physician - All imaging was reviewed and interpreted personally by myself, the ER physician. - Evaluation and treatment of this problem were appropriate in the emergency setting Lab Data 06/11/24 13:10 06/11/24 13:10 Labs/Radiology: Radiology Impressions Chest X-Ray 06/11/24 12:51 IMPRESSION: No acute cardiopulmonary process. Laboratory Results WBC 14.48 10^3/uL (3.29-11.43) H 06/11/24 13:10 RBC 5.77 10^6/uL (3.85-5.65) H 06/11/24 13:10 Hgb 15.40 g/dL (11.27-16.99) 06/11/24 13:10 Hct 51.2 % (37-53) 06/11/24 13:10 MCV 88.7 fl (82-101) 06/11/24 13:10 MCH 26.7 pg (27-33) L 06/11/24 13:10 MCHC 30.1 g/dL (30-55) 06/11/24 13:10 RDW 16.4 % (12.1-15.1) H 06/11/24 13:10 Plt Count 284 10^3/cmm (157-399) 06/11/24 13:10 MPV 9.4 fL (7.4-10.4) 06/11/24 13:10 Neut % (Auto) 80.2 % 06/11/24 13:10 Lymph % (Auto) 10.2 % 06/11/24 13:10 [place] % (Auto) 6.3 % 06/11/24 13:10 Eos % (Auto) 0.9 % 06/11/24 13:10 Baso % (Auto) 0.5 % 06/11/24 13:10 Neut # (Auto) 11.62 10^3/uL (1.8-7.7) H 06/11/24 13:10 Lymph # (Auto) 1.5 10^3/uL (0.8-4.8) 06/11/24 13:10 [place] # (Auto) 0.9 10^3/uL (0.2-0.9) 06/11/24 13:10 Eos # (Auto) 0.1 10^3/uL (0.0-0.8) 06/11/24 13:10 Baso # (Auto) 0.1 10^3/uL (0.0-0.1) 06/11/24 13:10 Nucleated RBC % (auto) 0 % 06/11/24 13:10 Nucleated RBCs # 0.0 /100WBC 06/11/24 13:10 Specimen Type Arterial 06/11/24 13:01 Sample Site Brachial, left 06/11/24 13:01 ABG pH 7.49 (7.35-7.45) H 06/11/24 13:01 ABG pCO2 43.8 mmHg (35-45) 06/11/24 13:01 ABG pO2 63.5 mmHg (80.0-100.0) L 06/11/24 13:01 ABG PO2/FiO2 Ratio 302 06/11/24 13:01 ABG HCO3 33.1 mmol/L (22-26) H 06/11/24 13:01 ABG O2 Saturation 94.4 06/11/24 13:01 ABG Base Excess 8.6 mmol/L (-2.0-2.0) H 06/11/24 13:01 Stan Test N/a 10/09/24 13:01 A-a O2 Gradient 4.2 mmHg (5-10) L 06/11/24 13:01 Hematocrit 46.3 % (42-52) 06/11/24 13:01 Hgb O2 Saturation 91.4 % (95-100) L 06/11/24 13:01 Carboxyhemoglobin 2.3 %THgb (0.4-20.1) 06/11/24 13:01 Methemoglobin 0.8 % (0.4-1.5) 06/11/24 13:01 Total Hemoglobin 15.1 g/dL (14-18) 06/11/24 13:01 Sodium 139.0 mmol/L (131-143) 06/11/24 13:01 Potassium 3.6 mmol/L (3.5-5.0) 06/11/24 13:01 Glucose 135.0 mg/dL (70-115) H 06/11/24 13:01 Ionized Calcium 1.1 mmol/L (1.1-1.4) 06/11/24 13:01 O2 Delivery Device Room air 06/11/24 13:01 FiO2 21.0 % 06/11/24 13:01 Civil Defense Director ID Amh 06/11/24 13:01 Sodium 140 mmol/L (136-145) 06/11/24 13:10 Potassium 4.1 mmol/L (3.5-5.1) 06/11/24 13:10 Chloride 99 mmol/L (98-107) 06/11/24 13:10 Carbon Dioxide 31 mmol/L (22-29) H 06/11/24 13:10 Anion Gap 14.1 (5-19) 06/11/24 13:10 BUN 13 mg/dL (8-23) 06/11/24 13:10 Creatinine 0.8 mg/dL (0.7-1.2) 06/11/24 13:10 GFR Calculation Not Reportable 06/11/24 13:10 Glucose 127 mg/dL (65-115) H 06/11/24 13:10 Calculated Osmolality 292 mOsm/kg (285-295) 06/11/24 13:10 Lactic Acid 1.0 mmol/L (0.5-2.2) 06/11/24 13:10 Calcium 8.4 mg/dL (8.5-10.5) L 06/11/24 13:10 Total Bilirubin 0.7 mg/dL (0.15-1.2) 06/11/24 13:10 AST 31 U/L (0-40) 06/11/24 13:10 ALT 35 U/L (0-41) 06/11/24 13:10 Alkaline Phosphatase 150 U/L (40-130) H 06/11/24 13:10 Troponin T Baseline 49 ng/L (0-15) H 06/11/24 13:10 NT-Pro-B Natriuret Pep 591 pg/mL (0-125) H 06/11/24 13:10 Total Protein 6.3 g/dL (6.6-8.7) L 06/11/24 13:10 Albumin 3.3 g/dL (3.5-5.2) L 06/11/24 13:10 Globulin 3.0 g/dL (1.3-4.6) 06/11/24 13:10 Coronavirus (PCR) Negative (Negative) 06/11/24 13:12 Influenza A (PCR) Negative (Negative) 06/11/24 13:12 Influenza Type B (PCR) Negative (Negative) 06/11/24 13:12 RSV (PCR) Negative (Negative) 06/11/24 13:12 All radiology interpretation(s) finalized by discharge Discharge Plan Discharge Patient Disposition: Admitted As Inpatient Clinical Impression: COPD with acute exacerbation, Acute on chronic hypoxic respiratory failure, Bronchitis Condition: Stable Coding Level of Care Code ED Executive Advisor for Jackelyn Holman
[2024-06-11 13:12] LABS: ABG PCO2 43.8 mmHg (35-45); ABG PH Result 7.49 (7.35-7.45); Alveolar-Arterial Oxygen Gradi 4.2 mmHg (5-10); Arterial Blood Gas Hematocrit 46.3 % (42-52); Base Excess ABG 8.6 mmol/L (-2.0-2.0); Blood Gas Operator Identificat AMH; Blood Gas Sample Site Brachial, left; Blood Gas Sample Type Arterial; Carboxyhemoglobin 2.3 %THgb (0.4-20.1); HCO3 ABG 33.1 mmol/L (22-26); HGB O2 Sat 91.4 % (95-100); Ionized Calcium Level - ABG 1.1 mmol/L (1.1-1.4); Methemoglobin 0.8 % (0.4-1.5); Oxygen Device ROOM AIR; Oxygen Saturation ABG 94.4; PO2 ABG 63.5 mmHg (80.0-100.0); PO2 FiO2 Ratio Arterial Blood 302; Potassium Level - ABG 3.6 mmol/L (3.5-5.0); Total Hemoglobin 15.1 g/dL (14-18)
[2024-06-11] MEDS: ipratropium-albuterol 3 mL Neb INHALATION ×2 (13:18→21:16)
[2024-06-11] MEDS: albuterol 2.5 mg/3 mL Neb INHALATION (13:18)
[2024-06-11 13:48] LABS: Basophils # 0.1 10^3/uL (0.0-0.1); Basophils % 0.5 %; Eosinophils # 0.1 10^3/uL (0.0-0.8); Eosinophils % 0.9 %; Hematocrit 51.2 % (37-53); Lymphocytes # 1.5 10^3/uL (0.8-4.8); Lymphocytes % 10.2 %; Mean Corpuscular HGB Conc 30.1 g/dL (30-55); Mean Corpuscular Hemoglobin 26.7 pg (27-33); Mean Corpuscular Volume 88.7 fl (82-101); Mean Platelet Volume 9.4 fL (7.4-10.4); Monocytes # 0.9 10^3/uL (0.2-0.9); Monocytes % 6.3 %; Neutrophils # 11.62 10^3/uL (1.8-7.7); Neutrophils % 80.2 %; Nucleated Red Blood Cells % 0 %; Platelet Count 284 10^3/cmm (157-399); Red Blood Count 5.77 10^6/uL (3.85-5.65); Red Cell Distribution Width 16.4 % (12.1-15.1); White Blood Count 14.48 10^3/uL (3.29-11.43)
[2024-06-11] MEDS: methylPREDNISolone sod succ 125 mg/2 mL INJ IVP (13:49)
[2024-06-11 14:08] LABS: Troponin(5th) Baseline 49 ng/L (0-15)
[2024-06-11 14:25] LABS: Alanine Aminotransferase 35 U/L (0-41); Albumin Level 3.3 g/dL (3.5-5.2); Alkaline Phosphatase 150 U/L (40-130); Anion Gap 14.1 (5-19); Aspartate Amino Transferase 31 U/L (0-40); Blood Urea Nitrogen 13 mg/dL (8-23); Calcium 8.4 mg/dL (8.5-10.5); Carbon Dioxide 31 mmol/L (22-29); Chloride 99 mmol/L (98-107); Creatinine Clr Calc Pharmacy 83.2344; Glucose 127 mg/dL (65-115); NT Pro B Type Natriuretic Pept 591 pg/mL (0-125); Osmolality Calculated 292 mOsm/kg (285-295); Potassium 4.1 mmol/L (3.5-5.1); Sodium 140 mmol/L (136-145); Total Bilirubin 0.7 mg/dL (0.15-1.2); Total Protein 6.3 g/dL (6.6-8.7)
--- NOTE | 2024-06-11 14:28 | P.HP_ITS ---
Providers/Chief Complaint 2 Primary Care Provider: GRAHAM Mari Chief Complaint: Gabriela vyas refferal, sob History of Present Illness Stew Gardner is a 73 year old male known oxygen pendant COPD, active smoker, hypertension, coronary disease with 3 stents, presented with chief complaint of worsening of shortness of breath. Patient is stating that his symptoms started roughly 10 days ago with worsening of shortness of breath he was put on steroids and antibiotics by the PCP but his symptoms have not resolved, low-grade fever was noted but he is not endorsing rigors, chills, nausea, vomiting or chest pain. He is endorsing mild sputum production. In the ER his symptoms did not resolve will DuoNeb treatment hence decision was made to admit him for his mild wheeze. D-dimer was requested to rule out DVT and PE. Patient in the past was on Eliquis which was discontinued secondary to history of gastric ulcer and GI bleed requiring blood transfusion. He has been taking aspirin and Plavix. Review of Systems 2 Const: Denies: fever(s) Eyes: Denies: change in vision ENMT: Denies: throat pain Card: Denies: chest pain Resp: Reports: dyspnea and productive cough GI: Denies: abdominal pain : Denies: flank pain Musc: Denies: neck pain Skin/Breast: Denies: rash Medications/Allergies Home Medications Medication Instructions Recorded Confirmed Last Taken Type albuterol sulfate 90 mcg/actuation 2 puff inhalation Q4H PRN 11/04/19 06/11/24 05/14/23 History aerosol inhaler (Ventolin HFA) Shortness Of Breath omeprazole 40 mg capsule,delayed 40 mg PO DAILY 11/04/19 06/11/24 06/10/24 History release lisinopril 40 mg tablet 60 mg PO DAILY 01/10/22 06/11/24 06/10/24 History rosuvastatin 20 mg tablet 20 mg PO DAILY 01/10/22 06/11/24 06/10/24 History ascorbic acid (vitamin C) 500 mg 500 mg PO DAILY 01/02/23 06/11/24 06/10/24 History tablet (Vitamin C) cholecalciferol (vitamin D3) 25 25 mcg PO DAILY 01/02/23 06/11/24 06/10/24 History mcg (1,000 unit) tablet (Vitamin D3) cyanocobalamin (vitamin B-12) 1,000 mcg PO DAILY 01/02/23 06/11/24 06/10/24 History 1,000 mcg tablet (Vitamin B-12) glyburide 5 mg tablet 5 mg PO DAILY 01/02/23 06/11/24 06/10/24 History multivitamin 1 tab PO DAILY 01/02/23 06/11/24 06/10/24 History potassium gluconate 595 mg (99 mg) 595 mg PO DAILY 01/02/23 06/11/24 06/10/24 History tablet aspirin 81 mg tablet,delayed 81 mg PO DAILY #30 tabs 05/15/23 06/11/24 06/10/24 Rx release clopidogrel 75 mg tablet 75 mg PO DAILY 07/02/23 06/11/24 06/10/24 History metoprolol tartrate 25 mg tablet 12.5 mg (1/2 x 25 mg) PO BID #180 09/05/23 06/11/24 06/10/24 Rx tabs albuterol sulfate 2.5 mg/3 mL 2.5 mg (3 mL) inhalation QID PRN 11/13/23 06/11/24 06/10/24 Rx (0.083 %) solution for nebulization Shortness Of Breath #480 mL budesonide 160 mcg-glycopyr 9 2 inh inhalation BID 90 days #32.1 11/13/23 06/11/24 06/10/24 Rx mcg-formot 4.8 mcg/actuation HFA grams inhaler (Breztri Aerosphere) amlodipine 2.5 mg tablet 2.5 mg PO BID 06/11/24 06/11/24 06/10/24 History Allergies Allergy/AdvReac Type Severity Reaction Status Date / Time insect venom Allergy Severe ALGY-Anaphy Verified 01/21/24 08:44 laxis Tetanus Vaccines and Toxoid Allergy ALGY-Anaphy Verified 01/21/24 08:44 laxis PFSH Acute 2 PFSH: Medical History (Updated 06/11/24 @ 14:30 by Eliezer Chowdhury MD) 3-vessel coronary artery disease Pulmonary embolism Diabetes mellitus DVT (deep venous thrombosis) Hyperlipidemia Hypertension COPD (chronic obstructive pulmonary disease) Surgical History History of umbilical hernia repair History of colonoscopy H/O spinal fusion History of cholecystectomy Family History Father CAD (coronary artery disease) Mother CAD (coronary artery disease) Diabetes Parkinson disease Other Autoimmune disease Social History Smoking and tobacco/nicotine status: current every day tobacco/nicotine user (2 cigar cigarrettes per day) cigars Cigars smoked per week: 14 Years smoked cigars: 10 Second hand smoke exposure: Yes Alcohol intake: never Substance/Drug Use: never Lives independently: Yes Household members: spouse Marital status: 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 Do you think of yourself as: Straight/Heterosexual Current gender identity: Male Vitals/I&O/Wt Last Vital Signs Temp 97.8 F 06/11/24 12:35 Pulse 66 06/11/24 13:52 Resp 20 H 06/11/24 13:20 BP 131/79 06/11/24 13:52 Pulse Ox 91 06/11/24 13:52 O2 Del Method Nasal Cannula 06/11/24 13:52 O2 Flow Rate 1 06/11/24 13:52 Weight last 48 hrs Weight 77.111 kg Physical Exam 2 Narrative: Pleasant cooperative Patient is using abdominal muscles to breathe Currently on 1 L nasal cannula saturating 95% Hemodynamically stable Awake and alert Pleasant cooperative Looks dehydrated No active chest pain Pleasant and cooperative S1, S2 Family at the bedside Mild conversational dyspnea Data 06/11/24 13:10 06/11/24 13:10 A&P Assessment and plan (1) Hypertension: Qualifiers: Hypertension type: unspecified Qualified Code(s): I10 - Essential (primary) hypertension (2) Diabetes mellitus: (3) Allergic rhinosinusitis: (4) GERD (gastroesophageal reflux disease): (5) COPD (chronic obstructive pulmonary disease): (6) Acute dyspnea: (7) Chronic respiratory failure: (8) COPD exacerbation: (9) Bronchitis: (10) Nicotine addiction: Plan Acute COPD exacerbation Failed outpatient therapy Mild wheezing Currently requiring 1 L nasal cannula Patient smokes cigar, 2 cigars/day Will start him on IV steroids along DuoNeb Check D-dimer rule out PE Requested COVID PCR swab Established coronary disease with 3 stents no active chest pain, continue dual antiplatelet therapy Type II diabetic Consistent carb diet along insulin sliding scale History of thromboembolic disease off Eliquis, check D-dimer Hypertension: Continue antihypertensive regimen Full code Consistent carb diet DVT prophylaxis: Heparin Attestations 2 Medical Necessity Statement*: Anticipating discharge within 48 hours Diagnoses Hypertension, unspecified type I10 Hypertension type: unspecified Diabetes mellitus E11.9 Allergic rhinosinusitis J30.9 GERD (gastroesophageal reflux disease) K21.9 COPD (chronic obstructive pulmonary disease) J44.9 Acute dyspnea R06.00 Chronic respiratory failure J96.10 COPD exacerbation J44.1 Bronchitis J40 Nicotine addiction F17.200
[2024-06-11] MEDS: doxycycline 100 MG in sodium chloride 0.9% (plus) 100 ML IV (14:29)
--- NOTE | 2024-06-11 14:29 | ECG_ITS ---
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: : 1950 Requested By: Christina Haney Order Number: [id number] Reading MD: BINA OSMAN Measurements Intervals [place] Rate: 94 P: 68 NE: 127 QRS: -63 QRSD: 102 T: 76 QT: 364 QTc: 457 Interpretive Statements SINUS RHYTHM WITH FREQUENT VENTRICULAR PREMATURE COMPLEXES WITH OCCASIONAL SUPRAVENTRICULAR PREMATURE COMPLEXES LEFT ANTERIOR FASCICULAR BLOCK [QRS AXIS <= -45, QR IN I, RS IN II] MODERATE ST DEPRESSION [0.05+ mV ST DEPRESSION] Compared to ECG 06/11/2024 12:39:03 ST (T wave) deviation now present Electronically Signed On 06-11-2024 20:11:26 CDT by BINA OSMAN [id number]
[2024-06-11 14:34] LABS: Covid PCR NEGATIVE (Negative); Influenza A NEGATIVE (Negative); Influenza B NEGATIVE (Negative); Respiratory Syncytial Virus Ce NEGATIVE (Negative)
[2024-06-11 15:05] LABS: D Dimer >= 20.00 ug/mLFEU (0-0.59)
[2024-06-11 15:49] LABS: Troponin 5 2HR 44.84 ng/L (0-15)
[2024-06-11 15:50] LABS: Troponin 5 2HR Delta -4.16 ABS# (0-10)
--- NOTE | 2024-06-11 16:46 | CTR_ITS ---
PROCEDURE INFORMATION: Exam: CTA Chest With Contrast Exam date and time: 06/11/2024 4:57 PM Age: 73 years old Clinical indication: Shortness of breath; Additional info: Hypoxemia, tachycardia TECHNIQUE: Imaging protocol: Computed tomographic angiography of the chest with contrast. Exam focused on the arteries. 3D rendering (Not supervised by radiologist): MIP and/or 3D reconstructed images were created by the technologist. Radiation optimization: All CT scans at this facility use at least one of these dose optimization techniques: automated exposure control; mA and/or kV adjustment per patient size (includes targeted exams where dose is matched to clinical indication); or iterative reconstruction. Contrast material: OMNI 350; Contrast volume: 65 ml; Contrast route: INTRAVENOUS (IV); COMPARISON: CT angio chest PE protcl [id number] 01/29/2023 12:32 AM RADIATION DOSE METRICS: Total DLP (mGy-cm): 456 FINDINGS: Pulmonary arteries: Normal. No pulmonary emboli. Aorta: Unremarkable. No aortic aneurysm. No aortic dissection. Lungs: Both lungs demonstrate diffuse interstitial nodularity. I see no jacinta consolidation or mass however. Bronchial wall thickening is noted bilaterally and there is mucous plugging in both bases. Pleural spaces: See Bones/joints finding. Heart: Unremarkable. No cardiomegaly. No pericardial effusion. Lymph nodes: Unremarkable. No enlarged lymph nodes. Bones/joints: Old rib fractures noted on the left with associated pleural thickening. Soft tissues: Unremarkable. CT/CT angio chest PE protcl [id number] IMPRESSION: Diffuse interstitial nodularity with bronchial wall thickening mucous plugging. This most likely represents reactive airway disease. However, I cannot totally exclude early interstitial pneumonia.
[2024-06-11] MEDS: iohexol 350 mg/mL 500 mL Btl (per mL) IV (17:07)
--- NOTE | 2024-06-11 18:39 | ECG_ITS ---
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: : 1950 Requested By: Christina Haney Order Number: [id number] Ana Cristina MD: BINA OSMAN Measurements Intervals [place] Rate: 76 P: 68 TX: 149 QRS: -55 QRSD: 98 T: 70 QT: 391 QTc: 440 Interpretive Statements SINUS RHYTHM WITH FREQUENT VENTRICULAR PREMATURE COMPLEXES LEFT ANTERIOR FASCICULAR BLOCK [QRS AXIS <= -45, QR IN I, RS IN II] Compared to ECG 06/11/2024 14:29:04 ST (T wave) deviation no longer present Electronically Signed On 06-11-2024 20:10:33 CDT by BINA OSMAN [id number]
[2024-06-11 20:39] LABS: Troponin 5 6HR 32.96 ng/L (0-15)
[2024-06-11 20:41] LABS: Troponin 5 6HR Delta -16.04 ng/L (0-12)
--- NOTE | 2024-06-11 21:13 | PC.RESP ---
overnight pulse ox placed on patient at 2105. patient has home order to wear 2lpm qhs, patients overnight pulse ox study was started on 2lpm.
[2024-06-11] MEDS: budesonide 0.5 mg/2 mL Neb INHALATION (21:16)
[2024-06-11 21:45] LABS: Glucose Point of Care 287 mg/dL (70-110)
[2024-06-11] MEDS: metoprolol tartrate 25 mg Tablet 12.5 MG PO (21:50)
[2024-06-11] MEDS: amlodipine 5 mg Tablet 2.5 MG PO (21:50)
[2024-06-11] MEDS: clopidogrel 75 mg Tablet PO (21:51)
[2024-06-11] MEDS: methylPREDNISolone sod succ 40 mg/mL INJ IVP (21:51)
[2024-06-11] MEDS: heparin 5,000 unit/mL INJ 1 mL 5000 UNIT SUBCUT (21:51)
[2024-06-11] MEDS: insulin lispro 100 unit/1 mL SUBCUT (21:56)
[2024-06-12] VITALS (13 sets, daily range): BP systolic 131–161; BP diastolic 58–72; PULSE 47–96; RESP 13–20; TEMP 36.4–36.7; O2SAT 90–95
[2024-06-12] MEDS: ipratropium-albuterol 3 mL Neb INHALATION ×4 (02:32→19:21)
[2024-06-12 05:50] LABS: Basophils % 0.4 %; Hematocrit 48.8 % (37-53); Lymphocytes # 0.8 10^3/uL (0.8-4.8); Lymphocytes % 8.1 %; Mean Corpuscular HGB Conc 29.7 g/dL (30-55); Mean Corpuscular Hemoglobin 26.7 pg (27-33); Mean Corpuscular Volume 89.7 fl (82-101); Mean Platelet Volume 9.6 fL (7.4-10.4); Monocytes # 0.2 10^3/uL (0.2-0.9); Monocytes % 1.8 %; Neutrophils # 8.91 10^3/uL (1.8-7.7); Neutrophils % 87.3 %; Nucleated Red Blood Cells % 0 %; Platelet Count 266 10^3/cmm (157-399); Red Blood Count 5.44 10^6/uL (3.85-5.65); Red Cell Distribution Width 16.4 % (12.1-15.1); White Blood Count 10.21 10^3/uL (3.29-11.43)
[2024-06-12 06:03] LABS: Anion Gap 12.2 (5-19); Blood Urea Nitrogen 17 mg/dL (8-23); C Reactive Protein 80.4 mg/L (0.0-4.9); Carbon Dioxide 35 mmol/L (22-29); Chloride 99 mmol/L (98-107); Creatinine Clr Calc Pharmacy 71.5868; Glucose 184 mg/dL (65-115); Magnesium 2.5 mg/dL (1.7-2.3); Osmolality Calculated 300 mOsm/kg (285-295); Phosphorus 3.4 mg/dL (2.5-4.5); Potassium 4.2 mmol/L (3.5-5.1); Sodium 142 mmol/L (136-145)
[2024-06-12 06:23] LABS: Glucose Point of Care 169 mg/dL (70-110)
[2024-06-12] MEDS: budesonide 0.5 mg/2 mL Neb INHALATION ×2 (08:15→19:21)
--- NOTE | 2024-06-12 08:25 | USCV_ITS ---
Stew Gardner Age: 73 Gender: M : 1950 Exam Date: 06/12/2024 09:29 Ordering Phys: Eliezer Chowdhury MD Technologist: ALVARO Exam Location: [facility] Indication: Swelling HISTORY: Lower extremity swelling. PROCEDURES: Venous duplex imaging was performed in bilateral lower extremities. The following venous structures were evaluated: common femoral vein, profunda vein, proximal portion of the greater saphenous vein, superficial femoral vein, and the popliteal vein. In addition, the posterior tibial and peroneal trunk were evaluated. Serial compression, augmentation maneuvers, and spectral Doppler flow evaluation were performed. FINDINGS: No evidence of DVT seen in any vessel visualized at this time. CONCLUSIONS No evidence of right lower extremity DVT. No evidence of left lower extremity DVT. Jose Scott MD (Electronically Signed) Final Date: 12 June 2024 14:31 S
[2024-06-12] MEDS: azithromycin 250 mg Tablet 500 MG PO (09:25)
[2024-06-12] MEDS: insulin lispro 100 unit/1 mL SUBCUT ×4 (09:25→20:59)
[2024-06-12] MEDS: atorvastatin 40 mg Tablet 80 MG PO (09:26)
[2024-06-12] MEDS: cefTRIAXone 1,000 mg SDV 1000 MG IVP (09:26)
[2024-06-12] MEDS: amlodipine 5 mg Tablet 2.5 MG PO ×2 (09:27→18:02)
[2024-06-12] MEDS: lisinopril 20 mg Tablet 40 MG PO (09:27)
[2024-06-12] MEDS: pantoprazole DR 40 mg Tablet PO (09:27)
[2024-06-12] MEDS: methylPREDNISolone sod succ 40 mg/mL INJ IVP ×2 (09:27→20:18)
[2024-06-12] MEDS: sennosides-docusate Tablet 1 TAB PO (09:27)
[2024-06-12] MEDS: aspirin 81 mg EC Tablet PO (09:28)
[2024-06-12] MEDS: ascorbic acid 500 mg Tablet PO (09:28)
[2024-06-12] MEDS: heparin 5,000 unit/mL INJ 1 mL 5000 UNIT SUBCUT ×2 (09:28→20:18)
--- NOTE | 2024-06-12 10:10 | PC.CHAP ---
Pastoral Care Encounter/Spiritual Assessment Type of Contact [] Declined social director visit [] Patient/Family/Request visit [] Outpatient visit [] Follow-up visit [] Physician referral [] Code/Alert [x] Routine visit [] Staff referral [] Actively dying [] Patient sleeping [x] Family support [] [] Out of room [] Palliative care [] [] Receiving care in room [] Pre-surgical visit [] Trauma [] Long length of stay [] ICU visit [] Other: Relational/Emotional Strength [x] Patient feels connected with others/family/visitors/staff [] Distress [] Loneliness/isolation [] Abandonment Spirituality of Patient [x] Person of Raeann [] Attends Episcopalian of their Raeann [x] Believes in Prayer [] Reads Bible or Protestant materials [] There are Spiritual issues to be addressed 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 Automatic Interventions [x] Prayer [x] Active listening [] Non-anxious presence [x] Spiritual/emotional support [] Crisis/trauma care [] Spiritual counseling [] Bereavement support [] Provided bereavement packet [] Provided Bible/devotional materials [] Provided toy/stuffed animal, coloring book to patient or family member [] Provided Communion [] Anointing/[place] [] Salvation [x] Completed spiritual assessment [] Other: Impact on Illness or Injury [] Angry [] Fearful [] Anxious [] Often cries [] Exhaustion [] Unable to work [] Unable to attend jewish [] Unable to walk/stand [] Unable to read [] Unable to drive [] Unable to eat/drink [] Unable to sleep [] Unable to be with family [] Patient intubated [] Other: Summary Time spent with patient 5 min
--- NOTE | 2024-06-12 10:37 | P.PN_ITS ---
Vitals/I&O/Wt Last Vital Signs Temp 97.6 F 06/12/24 08:00 Pulse 56 L 06/12/24 08:21 Resp 16 06/12/24 08:16 BP 156/65 06/12/24 08:00 Pulse Ox 93 06/12/24 08:16 O2 Del Method Nasal Cannula 06/12/24 08:16 O2 Flow Rate 2 06/12/24 08:16 06/11/24 06/12/24 06/12/24 22:59 06:59 14:59 Intake Total 100 / 100 240 / 240 Output Total 400 / 400 300 / 700 Balance -300 / -300 -300 / -600 240 / 240 Weight last 48 hrs Weight 71.395 kg Weight 74.208 kg Weight 77.111 kg Data 06/12/24 04:58 06/12/24 04:58 A&P Assessment and plan (1) Anemia: (2) Hypertension: Qualifiers: Hypertension type: unspecified Qualified Code(s): I10 - Essential (primary) hypertension (3) Diabetes mellitus: (4) Allergic rhinosinusitis: (5) GERD (gastroesophageal reflux disease): (6) COPD (chronic obstructive pulmonary disease): (7) Acute dyspnea: (8) Chronic respiratory failure: (9) COPD exacerbation: (10) Bronchitis: (11) Nicotine addiction: Plan Acute COPD exacerbation Active wheezing continue inhaled and IV steroids High D-dimer noted No signs of PE, requested venous Doppler, requested CT abdomen pelvis to rule out malignancy No active sign of infection CT scan consistent with mucous plug added Mucomyst Established coronary disease with 3 stents no active chest pain, continue dual antiplatelet therapy Type II diabetic Consistent carb diet along insulin sliding scale History of thromboembolic disease off Eliquis, requested CTA chest with did not show PE For now we are working on finding the etiology for extremely high D-dimer he did not seem to be infected, no signs of PE, requested venous Doppler, Hypertension: Optimize antihypertensive regimen Full code Consistent carb diet DVT prophylaxis: Heparin Attestations 2 Medical Necessity Statement*: Will need 1 more day in the hospital because of active wheezing Diagnoses Anemia D64.9 Hypertension, unspecified type I10 Hypertension type: unspecified Diabetes mellitus E11.9 Allergic rhinosinusitis J30.9 GERD (gastroesophageal reflux disease) K21.9 COPD (chronic obstructive pulmonary disease) J44.9 Acute dyspnea R06.00 Chronic respiratory failure J96.10 COPD exacerbation J44.1 Bronchitis J40 Nicotine addiction F17.200
--- NOTE | 2024-06-12 10:38 | CT_ITS ---
WS: [id number] CT ABDOMEN PELVIS TECHNIQUE: Noncontrast CT of the abdomen and pelvis with coronal and sagittal reformatted images. CLINICAL INFORMATION: high dimer, dyspnea, r/o malignancy COMPARISON: 2019 DLP: 560.[address] scans at [facility] use at least one of these dose optimization techniques: automated e xposure control; mA and/or kV adjustment per patient size (includes targeted exams where dose is matc hed to clinical indication); or iterative reconstruction. FINDINGS: Hepatomegaly. Cholecystectomy. Normal GE junction. Fluid distended stomach. Splenic granulomas. Nonco ntrast pancreas appears normal. Adrenal glands are normal. No hydronephrosis in either kidney. IVC fi lter. Slightly aneurysmal distal abdominal aorta measuring 3.1 x 2.4 cm. Residual contrast in the nicholas dder from prior PE study. Sigmoid colon constipation. Few sigmoid diverticuli. No evidence of acute diverticulitis. No evidence of high-grade small or large bowel obstruction. No free fluid in the abdomen or pelvis. Mild prostat e enlargement measuring 3.2 cm. Fat-containing RIGHT inguinal hernia. Pedicle screw fixation L4-5 wit h interbody fusion graft. CT/CT abdomen pelvis wo con [id number] IMPRESSION: 1. No acute findings in the abdomen or pelvis. 2. No abdominal or pelvic lymphadenopathy. 3. Sigmoid diverticulosis. No evidence of acute diverticulitis. 4. Hepatomegaly. 5. Prior cholecystectomy. 6. IVC filter. 7. Slightly enlarged prostate. Recommend correlation PSA. 8. Slightly aneurysmal distal abdominal aorta measuring 3.1 x 2.4 cm AP by tra nsverse.
[2024-06-12 12:07] LABS: Glucose Point of Care 154 mg/dL (70-110)
[2024-06-12] MEDS: acetylcysteine 200 mg/mL SDV 4 mL INHALATION ×2 (13:36→19:22)
--- NOTE | 2024-06-12 16:24 | PC.NURSE ---
Pt HR charted to be 49; however, pt placed on tele and actual hr is 70. Confirmed with apical reading. Asks MALINDA Wen to change documentation to reflect true reading.
[2024-06-12 16:45] LABS: Glucose Point of Care 156 mg/dL (70-110)
[2024-06-12 16:48] LABS: PSA Screen - Urology 1.55 ng/mL (0-4)
[2024-06-12] MEDS: metoprolol tartrate 25 mg Tablet 12.5 MG PO (18:02)
[2024-06-12] MEDS: clopidogrel 75 mg Tablet PO (20:19)
[2024-06-12 20:35] LABS: Glucose Point of Care 188 mg/dL (70-110)
[2024-06-13] VITALS (7 sets, daily range): BP systolic 145–158; BP diastolic 73–85; PULSE 49–65; RESP 17–19; TEMP 36.4–36.9; O2SAT 93
[2024-06-13] MEDS: acetylcysteine 200 mg/mL SDV 4 mL INHALATION ×2 (03:50→07:33)
[2024-06-13] MEDS: ipratropium-albuterol 3 mL Neb INHALATION ×2 (03:50→07:33)
[2024-06-13 05:16] LABS: Basophils # 0.1 10^3/uL (0.0-0.1); Basophils % 0.2 %; Hematocrit 45.5 % (37-53); Lymphocytes # 1.3 10^3/uL (0.8-4.8); Lymphocytes % 6.1 %; Mean Corpuscular HGB Conc 30.1 g/dL (30-55); Mean Corpuscular Hemoglobin 26.5 pg (27-33); Mean Platelet Volume 9.7 fL (7.4-10.4); Monocytes # 0.4 10^3/uL (0.2-0.9); Monocytes % 1.9 %; Neutrophils # 18.83 10^3/uL (1.8-7.7); Neutrophils % 90.2 %; Nucleated Red Blood Cells % 0 %; Platelet Count 257 10^3/cmm (157-399); Red Blood Count 5.17 10^6/uL (3.85-5.65); Red Cell Distribution Width 16.2 % (12.1-15.1); White Blood Count 20.89 10^3/uL (3.29-11.43)
[2024-06-13 05:35] LABS: Blood Urea Nitrogen 22 mg/dL (8-23); Calcium 8.4 mg/dL (8.5-10.5); Carbon Dioxide 33 mmol/L (22-29); Chloride 99 mmol/L (98-107); Creatinine Clr Calc Pharmacy 80.5351; Glucose 161 mg/dL (65-115); Osmolality Calculated 295 mOsm/kg (285-295); Sodium 139 mmol/L (136-145)
[2024-06-13 05:38] LABS: Anion Gap 11.6 (5-19); Potassium 4.6 mmol/L (3.5-5.1)
[2024-06-13 06:30] LABS: Glucose Point of Care 150 mg/dL (70-110)
[2024-06-13] MEDS: budesonide 0.5 mg/2 mL Neb INHALATION (07:33)
[2024-06-13] MEDS: methylPREDNISolone sod succ 40 mg/mL INJ IVP (08:23)
[2024-06-13] MEDS: insulin lispro 100 unit/1 mL SUBCUT (08:23)
[2024-06-13] MEDS: heparin 5,000 unit/mL INJ 1 mL 5000 UNIT SUBCUT (08:24)
[2024-06-13] MEDS: ascorbic acid 500 mg Tablet PO (08:25)
[2024-06-13] MEDS: lisinopril 20 mg Tablet 40 MG PO (08:25)
[2024-06-13] MEDS: amlodipine 5 mg Tablet 2.5 MG PO (08:26)
[2024-06-13] MEDS: atorvastatin 40 mg Tablet 80 MG PO (08:26)
[2024-06-13] MEDS: sennosides-docusate Tablet 1 TAB PO (08:26)
[2024-06-13] MEDS: aspirin 81 mg EC Tablet PO (08:26)
[2024-06-13] MEDS: pantoprazole DR 40 mg Tablet PO (08:27)
[2024-06-13] MEDS: azithromycin 250 mg Tablet 500 MG PO (08:43)
[2024-06-13] MEDS: cefTRIAXone 1,000 mg SDV 1000 MG IVP (08:43)
--- NOTE | 2024-06-13 10:04 | PC.NURSE ---
During d/c process I clarified with Dr. Chowdhury that the Home O2 Eval was needed as patient already has 2L/min ordered PRN for exertion and at HS for home use. He states that since patient already has this order, there is no longer a need for the home O2 eval. I d/c'd the order and updated RT.
--- NOTE | 2024-06-13 10:31 | P.DS_ITS ---
Discharge Providers Date of Admission: 06/11/24 17:57 Date of Discharge: June 13, 2024 Attending Provider at Admission: Eliezer Chowdhury MD Attending Provider at Discharge: Eliezer Chowdhury MD Primary Care Provider: GRAHAM Mari Diagnoses at Discharge Discharge Diagnosis (1) Anemia: Status: Acute (2) Hypertension: Status: Acute Qualifiers: Hypertension type: unspecified Qualified Code(s): I10 - Essential ([facility]) hypertension (3) Diabetes mellitus: Status: Acute (4) Allergic rhinosinusitis: Status: Acute (5) GERD (gastroesophageal reflux disease): Status: Acute (6) COPD (chronic obstructive pulmonary disease): Status: Acute (7) Acute dyspnea: Status: Acute (8) Chronic respiratory failure: Status: Acute (9) COPD exacerbation: Status: Acute (10) Bronchitis: Status: Acute (11) Nicotine addiction: Status: Acute Reason for Visit Reason for Visit: Gabriela vyas refferal, sob Hospital Course Hospital Course 73-year-old male who was admitted for management evaluation of COPD exacerbation was only using 2 L at nighttime, he was put on DuoNeb and IV steroids along budesonide. His leukocytosis detected the use of steroids. He remained afebrile. COVID PCR negative. CTA chest was done because of high D-dimer which was unremarkable other than bronchitis and mucous plug he was kept on antibiotics, patient was showing signs of wheezing for which she required Medrol pack at the time of discharge along azithromycin and Mucinex. Patient is requiring 2 L on exertion. We called his oxygen provider home: They do have oxygen order of 2 L on exertion hence no need of home O2 eval at discharge. I did go over with the patient regarding high D-dimer since we have not seen any pulmonary embolism infection and malignancy has to be ruled out, he does not seem to have severe infection at this time CT abdomen pelvis was done which showed prostatic enlargement, he is not endorsing back pain, weight loss, we have not seen signs of any occult malignancies at this point. Patient and family aware. Etiology for high D-dimer unknown at this point. Physical Exam Narrative: Pleasant cooperative Mild wheeze On 2 L Pleasant cooperative Nonfocal neuroexam Discharge Data Studies Completed and Pending Completed Studies During Hospitalization Category Date Time Status CT abdomen pelvis con [id number] Routine Cat Scan 06/12/24 10:[address] angio chest PE protcl [id number] Stat Cat Scan 06/11/24 16:46 Completed XR chest 1V portable [id number] Stat Exams 06/11/24 12:51 [place] [id number] Routine Ultrasound 06/12/24 08:25 Completed Pending at discharge Category Date Time Status Bacterial Antigen Routine Lab 06/11/24 20:47 Received Sputum Culture and Gram Stain Stat Lab 06/11/24 22:00 Results Radiology Impressions Chest X-Ray 06/11/24 12:51 IMPRESSION: No acute cardiopulmonary process. Chest CTA 06/11/24 16:46 IMPRESSION: Diffuse interstitial nodularity with bronchial wall thickening mucous plugging. This most likely represents reactive airway disease. However, I cannot totally exclude early interstitial pneumonia. Abdomen/Pelvis CT 06/12/24 10:38 IMPRESSION: 1. No acute findings in the abdomen or pelvis. 2. No abdominal or pelvic lymphadenopathy. 3. Sigmoid diverticulosis. No evidence of acute diverticulitis. 4. Hepatomegaly. 5. Prior cholecystectomy. 6. IVC filter. 7. Slightly enlarged prostate. Recommend correlation PSA. 8. Slightly aneurysmal distal abdominal aorta measuring 3.1 x 2.4 cm AP by transverse. Laboratory Results WBC 20.89 10^3/uL (3.29-11.43) H 06/13/24 04:39 RBC 5.17 10^6/uL (3.85-5.65) 06/13/24 04:39 Hgb 13.70 g/dL (11.27-16.99) 06/13/24 04:39 Hct 45.5 % (37-53) 06/13/24 04:39 MCV 88.0 fl (82-101) 06/13/24 04:39 MCH 26.5 pg (27-33) L 06/13/24 04:39 MCHC 30.1 g/dL (30-55) 06/13/24 04:39 RDW 16.2 % (12.1-15.1) H 06/13/24 04:39 Plt Count 257 10^3/cmm (157-399) 06/13/24 04:39 MPV 9.7 fL (7.4-10.4) 06/13/24 04:39 Neut % (Auto) 90.2 % 06/13/24 04:39 Lymph % (Auto) 6.1 % 06/13/24 04:39 Park % (Auto) 1.9 % 06/13/24 04:39 Eos % (Auto) 0.0 % 06/13/24 04:39 Baso % (Auto) 0.2 % 06/13/24 04:39 Neut # (Auto) 18.83 10^3/uL (1.8-7.7) H 06/13/24 04:39 Lymph # (Auto) 1.3 10^3/uL (0.8-4.8) 06/13/24 04:39 Park # (Auto) 0.4 10^3/uL (0.2-0.9) 06/13/24 04:39 Eos # (Auto) 0.0 10^3/uL (0.0-0.8) 06/13/24 04:39 Baso # (Auto) 0.1 10^3/uL (0.0-0.1) 06/13/24 04:39 Nucleated RBC % (auto) 0 % 06/13/24 04:39 Nucleated RBCs # 0.0 /100WBC 06/13/24 04:39 D-Dimer >= 20.00 ug/mLFEU (0-0.59) H 06/11/24 13:10 Specimen Type Arterial 06/11/24 13:01 Sample Site Brachial, left 06/11/24 13:01 ABG pH 7.49 (7.35-7.45) H 06/11/24 13:01 ABG pCO2 43.8 mmHg (35-45) 06/11/24 13:01 ABG pO2 63.5 mmHg (80.0-100.0) L 06/11/24 13:01 ABG PO2/FiO2 Ratio 302 06/11/24 13:01 ABG HCO3 33.1 mmol/L (22-26) H 06/11/24 13:01 ABG O2 Saturation 94.4 06/11/24 13:01 ABG Base Excess 8.6 mmol/L (-2.0-2.0) H 06/11/24 13:01 Stan Test N/a 06/11/24 13:01 A-a O2 Gradient 4.2 mmHg (5-10) L 06/11/24 13:01 Hematocrit 46.3 % (42-52) 06/11/24 13:01 Hgb O2 Saturation 91.4 % (95-100) L 06/11/24 13:01 Carboxyhemoglobin 2.3 %THgb (0.4-20.1) 06/11/24 13:01 Methemoglobin 0.8 % (0.4-1.5) 06/11/24 13:01 Total Hemoglobin 15.1 g/dL (14-18) 06/11/24 13:01 Sodium 139.0 mmol/L (131-143) 06/11/24 13:01 Potassium 3.6 mmol/L (3.5-5.0) 06/11/24 13:01 Glucose 135.0 mg/dL (70-115) H 06/11/24 13:01 Ionized Calcium 1.1 mmol/L (1.1-1.4) 06/11/24 13:01 O2 Delivery Device Room air 06/11/24 13:01 FiO2 21.0 % 06/11/24 13:01 Ship Keeper ID Amh 06/11/24 13:01 Sodium 139 mmol/L (136-145) 06/13/24 04:39 Potassium 4.6 mmol/L (3.5-5.1) 06/13/24 04:39 Chloride 99 mmol/L (98-107) 06/13/24 04:39 Carbon Dioxide 33 mmol/L (22-29) H 06/13/24 04:39 Anion Gap 11.6 (5-19) 06/13/24 04:39 BUN 22 mg/dL (8-23) 06/13/24 04:39 Creatinine 0.8 mg/dL (0.7-1.2) 06/13/24 04:39 GFR Calculation Not Reportable 06/13/24 04:39 Glucose 161 mg/dL (65-115) H 06/13/24 04:39 POC Glucose 150 mg/dL (70-110) H 06/13/24 06:04 Calculated Osmolality 295 mOsm/kg (285-295) 06/13/24 04:39 Lactic Acid 1.0 mmol/L (0.5-2.2) 06/11/24 13:10 Calcium 8.4 mg/dL (8.5-10.5) L 06/13/24 04:39 Phosphorus 3.4 mg/dL (2.5-4.5) 06/12/24 04:58 Magnesium 2.5 mg/dL (1.7-2.3) H 06/12/24 04:58 Total Bilirubin 0.7 mg/dL (0.15-1.2) 06/11/24 13:10 AST 31 U/L (0-40) 06/11/24 13:10 ALT 35 U/L (0-41) 06/11/24 13:10 Alkaline Phosphatase 150 U/L (40-130) H 06/11/24 13:10 Troponin T Baseline 49 ng/L (0-15) H 06/11/24 13:10 Troponin T 120 Minute 44.84 ng/L (0-15) H 06/11/24 15:26 Delta Troponin T -4.16 ABS# (0-10) L 06/11/24 15:26 Troponin T Hi Sens 6Hr 32.96 ng/L (0-15) H 06/11/24 20:16 Troponin T Hi Sens 6Hr Delta -16.04 ng/L (0-12) L 06/11/24 20:16 C-Reactive Protein 80.4 mg/L (0.0-4.9) H 06/12/24 04:58 NT-Pro-B Natriuret Pep 591 pg/mL (0-125) H 06/11/24 13:10 Total Protein 6.3 g/dL (6.6-8.7) L 06/11/24 13:10 Albumin 3.3 g/dL (3.5-5.2) L 06/11/24 13:10 Globulin 3.0 g/dL (1.3-4.6) 06/11/24 13:10 PSA Screen 1.55 ng/mL (0-4) 06/12/24 04:58 Coronavirus (PCR) Negative (Negative) 06/11/24 13:12 Influenza A (PCR) Negative (Negative) 06/11/24 13:12 Influenza Type B (PCR) Negative (Negative) 06/11/24 13:12 RSV (PCR) Negative (Negative) 06/11/24 13:12 Vitals Last Vital Signs Temp 97.6 F 06/13/24 08:00 Pulse 51 L 06/13/24 08:00 Resp 18 10/11/24 08:00 BP 155/85 06/13/24 08:00 Pulse Ox 93 06/13/24 08:00 O2 Del Method Nasal Cannula 06/13/24 07:34 O2 Flow Rate 2 06/13/24 07:34 Discharge Plan Discharge Patient Disposition: Home Condition: Stable Prescriptions: New azithromycin 250 mg Tablet 500 mg PO DAILY Qty: 5 0RF methylprednisolone [Medrol (Sameer)] 4 mg tablets,dose pack See Rx Instructions .ROUTE .COMPLEX Qty: 21 0RF Rx Instructions: orally per package directions guaifenesin [Mucinex] 600 mg tablet extended release 12hr 600 mg PO BID PRN (Reason: congestion) Qty: 30 0RF Continued rosuvastatin 20 mg tablet 20 mg PO DAILY clopidogrel 75 mg tablet 75 mg PO BEDTIME metoprolol tartrate 25 mg tablet 12.5 mg PO BID Qty: 180 3RF Breztri Aerosphere 160-9-4.8 mcg/actuation HFA aerosol inhaler 2 inh inhalation BID 90 Days Qty: 32.1 3RF albuterol sulfate 2.5 mg /3 mL (0.083 %) solution for nebulization 2.5 mg inhalation QID PRN (Reason: Shortness Of Breath) Qty: 480 3RF omeprazole 40 mg capsule,delayed release(DR/EC) 40 mg PO DAILY albuterol sulfate [Ventolin HFA] 90 mcg/actuation HFA aerosol inhaler 2 puff INHALATION Q4H PRN (Reason: Shortness Of Breath) lisinopril 40 mg tablet 60 mg PO DAILY aspirin 81 mg Tablet,Delayed Release (Dr/Ec) 81 mg PO DAILY Qty: 30 0RF multivitamin Tablet 1 tab PO DAILY glyburide 5 mg tablet 5 mg PO DAILY cyanocobalamin (vitamin B-12) [Vitamin B-12] 1,000 mcg Tablet 1,000 mcg PO DAILY ascorbic acid (vitamin C) [Vitamin C] 500 mg Tablet 500 mg PO DAILY cholecalciferol (vitamin D3) [Vitamin D3] 25 mcg (1,000 unit) Tablet 25 mcg PO DAILY potassium gluconate 595 mg (99 mg) Tablet 595 mg PO DAILY amlodipine 2.5 mg Tablet 2.5 mg PO BID Discharge Orders: Discharge Order (Routine); Ordered 06/13/24 Ordered By: Eliezer Chowdhury Referrals: Gabriela Vyas FNP [Primary Care Provider] - 06/18/24 9:20 am Patient Instructions: Bronchitis (Acute) - Adult, Azithromycin (By mouth), Methylprednisolone (By mouth) (Medrol, Medrol Dosepak), COPD (Chronic Obstructive Pulmonary Disease) (DC), COPD Stoplight, Opioid Safety Discharge Attestations Time Spent in Discharge Care*: greater than 30 min Quality Metrics Clinical Quality Measures [ No reported AMI, CVA or VTE this stay] Coding Level of Care Code Acute Code for Chg Fwd Diagnoses Anemia D64.9 Hypertension, unspecified type I10 Hypertension type: unspecified Diabetes mellitus E11.9 Allergic rhinosinusitis J30.9 GERD (gastroesophageal reflux disease) K21.9 COPD (chronic obstructive pulmonary disease) J44.9 Acute dyspnea R06.00 Chronic respiratory failure J96.10 COPD exacerbation J44.1 Bronchitis J40 Nicotine addiction F17.200
--- NOTE | 2024-06-13 11:02 | PC.NURSE ---
Patient will require 2L/min O2 during transportation home, however his spouse doesn't have his e-tanks with her. I called and spoke with HOME and they are bringing an e-tank over for him to use for transport as he is already an existing patient.
--- NOTE | 2024-06-13 11:54 | PC.NURSE ---
Pt leaves prior to HOME delivering oxygen. Daughter states, he won't be without oxygen long.
== END 2024-06-13 11:30 | disposition home or self-care (01) ==
LOC: ER 14:58 → MEDSURG 22:33
PROVIDERS: Admitting Provider Internal Medicine; Emergency Provider Emergency Medicine; PCP Nurse Practitioner Family; Visit Provider Internal Medicine
DX: J44.1 Chronic obstructive pulmonary disease with (acute) exacerbation (principal); Z99.81 Dependence on supplemental oxygen; D64.9 Anemia, unspecified; I10 Essential (primary) hypertension; E11.9 Type 2 diabetes mellitus without complications; J30.9 Allergic rhinitis, unspecified; K21.9 Gastro-esophageal reflux disease without esophagitis; R60.0 Localized edema; J96.10 Chronic respiratory failure, unspecified whether with hypoxia or hypercapnia; J40 Bronchitis, not specified as acute or chronic; Z79.01 Long term (current) use of anticoagulants; I25.10 Atherosclerotic heart disease of native coronary artery without angina pectoris; Z95.5 Presence of coronary angioplasty implant and graft; E78.5 Hyperlipidemia, unspecified; Z86.711 Personal history of pulmonary embolism; Z82.49 Family history of ischemic heart disease and other diseases of the circulatory system; Z98.1 Arthrodesis status; F17.210 Nicotine dependence, cigarettes, uncomplicated
CPT/HCPCS: 0241U; 36415; 36416; 36600; 71045; 71275; 74176; 80048; 80051; 80053; 82330; 82805; 82962; 83605; 83735; 83880; 84100; 84484; 85025; 85378; 86140; 86403; 87070; 87205; 93005; 93970; 94640; 94762; 96365; 96372; 96375; 96376; 99285; G0103; G0378; J0696; J1644; J1815; J2919; J3490; J7608; J7613; J7626; Q0144